=== PATIENT | female | born 1955 | race Caucasian/White ===

== ENCOUNTER 2018-08-15 15:32 | Inpatient (IN) | payer OTHER ==
--- NOTE | 2018-08-15 16:24 | PDOC ---
History of Present Illness - General Chief Complaint: Pain, Acute Stated Complaint: VOMITING Time Seen by Provider: 08/15/18 16:24 - History of Present Illness Initial Comments: 63 year old female with PMH of early onset Alzheimer's presenting with family for three episodes of bilious, non-bloody vomiting and abdominal pain over the past 10 hours. Patient ate eggs and yucca this AM without issue then 30 minutes after noticed these symptoms. Has not had a bowel movement since yesterday. Denies any chest pain, SOB, urinary symptoms, fevers, chills, diarrhea, constipation or other symptoms. 08/15/18 16:38 Past History - Past Medical History Allergies/Adverse Reactions: Allergies Allergy/AdvReac Type Severity Reaction Status Date / Time No Known Allergies Allergy Verified 08/15/18 15:48 Home Medications: Ambulatory Orders Donepezil HCl [Aricept] 5 mg PO DAILY 08/16/18 Escitalopram Oxalate [Lexapro -] 10 mg PO BID 08/16/18 Memantine HCl 2 mg PO BID 08/16/18 Mirtazapine 30 mg PO DAILY 08/16/18 Risperidone 0.25 mg PO BID 08/16/18 COPD: No CHF: No Dementia: Yes (Alzhiemers dx) - Suicide/Smoking/Psychosocial Hx Smoking History: Never smoked Have you smoked in the past 12 months: No Information on smoking cessation initiated: No Hx Alcohol Use: No Drug/Substance Use Hx: No Review of Systems - Review of Systems Constitutional: No: Chills, Diaphoresis, Fever HEENTM: No: Eye Pain, Blurred Vision, Tearing Respiratory: No: Cough, Orthopnea, Shortness of Breath Cardiac (ROS): No: Chest Pain, Edema, Irregular Heart Rate ABD/GI: Yes: Nausea, Vomiting. No: Blood Streaked Bowels, Constipated, Diarrhea , Poor Appetite, Indigestion : No: Burning, Dysuria, Discharge Musculoskeletal: Yes: Back Pain, Joint Pain Integumentary: No: Bruising, Change in Color, Erythema Neurological: Yes: Other (alzheimer's). No: Headache, Numbness, Paresthesia, Tingling, Tremors Endocrine: No: Flushing, Intolerance to Heat, Increased Hunger, Increased Urine , Change in Weight Hematologic/Lymphatic: No: Anemia, Blood Clots, Easy Bleeding *Physical Exam - Vital Signs Last Vital Signs Temp Pulse Resp BP Pulse Ox 98.0 F 53 L 16 125/92 100 08/15/18 15:46 08/15/18 15:46 08/15/18 15:46 08/15/18 15:46 08/15/18 15:46 - Physical Exam General Appearance: Yes: Nourished, Appropriately Dressed. No: Apparent Distress HEENT: positive: EOMI, YOLANDA, Normal ENT Inspection, Normal Voice Neck: positive: Trachea midline, Normal Thyroid, Supple. negative: Tender, Rigid Respiratory/Chest: positive: Lungs Clear, Normal Breath Sounds. negative: Chest Tender, Respiratory Distress, Accessory Muscle Use Cardiovascular: positive: Regular Rhythm, Regular Rate Gastrointestinal/Abdominal: positive: Normal Bowel Sounds, Flat, Soft. negative : Tender Rectal Exam: positive: normal rectal tone. negative: normal exam (severeley distended rectal vault with large proximal stool burden) Lymphatic: negative: Adenopathy, Tenderness Musculoskeletal: positive: Normal Inspection. negative: Decreased Range of Motion Extremity: positive: Normal Capillary Refill, Normal Inspection, Normal Range of Motion, Tender Integumentary: positive: Normal Color, Dry, Warm Neurologic: positive: Alert, Normal Mood/Affect, Motor Strength 5/5. negative: Fully Oriented, Normal Response (seems overall confused, oriented to person only ) Moderate Sedation - Procedure Monitoring Vital Signs: Procedure Monitoring Vital Signs Temperature 98.0 F 08/15/18 15:46 Pulse Rate 53 L 08/15/18 15:46 Respiratory Rate 16 08/15/18 15:46 Blood Pressure 125/92 08/15/18 15:46 O2 Sat by Pulse Oximetry (%) 100 08/15/18 15:46 ED Treatment Course - LABORATORY CBC & Chemistry Diagram: 08/17/18 06:00 08/17/18 06:00 Medical Decision Making - Medical Decision Making 63 year old female, severely demented presenting with nausea, vomiting, and suspicion of constipation. Originally we were concerned for obstruction given comorbidities and clinical symptoms, however, CT only demonstrated a large stool burden and diverticulosis without evidence of infection. Concerningly though, leukocytosis to 19 was noted. We were unsuccessful in disimpacting the patient because tof hte proximal location of the stool burden. Although VSS, patient well appearing, and the likely fact that this is all due to fecal impaction; patient is severely demented and she likely has abdominal pain given her admission of such in occasional lucid periods. If this patient were able to communicate,I would admit her for serial abdominal exams. Given this context, she was discussed with Dr. Hart for admission and the medicine service will observe him. 08/16/18 00:01 *DC/Admit/Observation/Transfer Diagnosis at time of Disposition: Leukocytosis Qualifiers: Leukocytosis type: lymphocytosis Qualified Code(s): D72.820 - Lymphocytosis ( symptomatic) Abdominal pain Qualifiers: Abdominal location: unspecified location Qualified Code(s): R10.9 - Unspecified abdominal pain - Discharge Dispostion Disposition: HOME Condition at time of disposition: Stable Decision to Admit order: Yes - Referrals - Patient Instructions - Post Discharge Activity
--- NOTE | 2018-08-15 16:31 | PDOC ---
Attending Attestation - Resident Resident Name: Sheyla Holman - ED Attending Attestation I have performed the following: I have examined & evaluated the patient, The case was reviewed & discussed with the resident, I agree w/resident's findings & plan, Exceptions are as noted - HPI HPI: 08/15/18 16:30 63 yo female p/w complaint of nausea and vomiting x 3 - Physicial Exam PE: 08/15/18 16:35 slender 63 yo female in no acute distress but appears uncomfortable head ncat eyes eomi neck no jvd.supple lungs cta b/l cvs [id number] abd no rebound,no guarding ext no edema,no deformities skin warm and dry no cva tenderness neuro alert,very poor historian(dementia at baseline),moving all extremities psych sl anxious 08/15/18 16:50 - Medical Decision Making 08/15/18 63 yo female w vomiting x 3, no prior abdominal surgeries diff diag includes appendicitis, cholecystitis,gastroenteritis, UTI plan cbc,comp,UA,imaging,IVf,antiemetics 08/15/18 18:25 pt is unable to tell us her history because of her advance dementia, labs reveal a leukocytosis and we will obtain ct scan 08/15/18 23:49 ct scan of abd/pel shows fecal impaction, no sbo,no masses,no diverticulitis, no appendicitis pt was disimpacted and received an fleets enema Ua, UC sent and there was hematuria most likely due to catheterization ,no bacteria,no UTI 08/16/18 01:20 IMP dementia,fecal impaction w vomiting
[2018-08-15] MEDS ORDERED: SODIUM CHLORIDE 0.9% 500 ML INFUS.BAG IV ONE (16:37)
[2018-08-15 18:10] LABS: BASO % 0.3 % (0-2.0); HEMATOCRIT 39.6 % (32.4-45.2); HEMOGLOBIN 13.6 GM/dL (10.7-15.3); LYMPH % 5.3 % (8-40); MCH 28.7 pg (25.7-33.7); MCHC 34.4 g/dl (32.0-36.0); MEAN CELL VOLUME 83.5 fl (80-96); MEAN PLT VOLUME 8.8 fl (7.5-11.1); NEUT % 90.4 % (42.8-82.8); PLATELET COUNT 315 K/MM3 (134-434); RBC 4.74 M/mm3 (3.60-5.2); RDW 13.4 % (11.6-15.6); WHITE BLOOD COUNT 19.2 K/mm3 (4.0-10.0)
[2018-08-15 18:38] LABS: ALBUMIN 3.8 g/dl (3.4-5.0); ALK PHOS 75 U/L (45-117); AMYLASE 66 U/L (25-115); ANION GAP 11 MMOL/L (8-16); BILIRUBIN,TOTAL 0.5 mg/dL (0.2-1); BLOOD UREA NITROGEN 15 mg/dL (7-18); CALCIUM 9.4 mg/dL (8.5-10.1); CHLORIDE 106 mmol/L (98-107); CO2 22 mmol/L (21-32); CREATININE 0.9 mg/dL (0.55-1.3); GLUCOSE,RANDOM 147 mg/dL (74-106); LIPASE 101 U/L (73-393); MAGNESIUM 2.1 mg/dL (1.8-2.4); N-TERMINAL BNP 102.8 pg/ml (5-125); PHOSPHOROUS 3.1 mg/dL (2.5-4.9); POTASSIUM 4.3 mmol/L (3.5-5.1); SGOT/AST 21 U/L (15-37); SGPT/ALT 20 U/L (13-61); SODIUM 140 mmol/L (136-145); TOT PROT 7.9 g/dl (6.4-8.2)
[2018-08-15] MEDS ORDERED: HALOPERIDOL LACTATE 5 MG/ML IM ONE (21:06)
[2018-08-15] MEDS ORDERED: HALOPERIDOL LACTATE 5 MG/ML ONE (21:08)
[2018-08-15] MEDS ORDERED: SODIUM PHOSPHATE/NA BIPHOS 133 ML ENEMA PR ONE (22:58)
--- NOTE | 2018-08-15 23:48 | PN ---
Teaching Attending Note Name of Resident: Antolin Hart ATTENDING PHYSICIAN STATEMENT I saw and evaluated the patient. I reviewed the resident's note and discussed the case with the resident. I agree with the resident's findings and plan as documented. SUBJECTIVE: Patient 63 year old woman with PMH of early onset Alzheimer's presenting with family for three episodes of bilious, non-bloody vomiting and abdominal pain over the past 10 hours. Patient ate eggs and yucca this AM without issue then 30 minutes after noticed these symptoms. Has not had a bowel movement since yesterday. Denies any chest pain, SOB, urinary symptoms, fevers, chills or diarrhea. OBJECTIVE: Alert Vital Signs Period Temp Pulse Resp BP Sys/Ramos Pulse Ox Last 24 Hr 98.0 F 53 16 125/92 100 HEENT: No Jaundice, eye redness or discharge, PERRLA, EOMI. Normocephalic, atraumatic. External ears are normal. No nasal discharge. Neck: Supple, nontender. No palpable adenopathy or thyromegaly. No JVD Chest: Good effort. Clear to auscultation and percussion. Heart: Regular. No S3, rub or murmur Abdomen: Not distended, soft, nontender and no HSM. No rebound or guarding. Normoactive bowel sounds. Ext: Peripheral pulses intact. No leg edema. Skin: Warm and dry. No petechiae, rash or ecchymosis. Neuro: Alert. Dementia. Disoriented. CN 2-12 grossly intact. Sensation grossly intact in all four extremities and DTR are symmetric. Abnormal Lab Results 08/15/18 08/15/18 17:35 17:35 WBC 19.2 H Absolute Neuts (auto) 17.3 H Neutrophils % 90.4 H Lymphocytes % 5.3 L Random Glucose 147 H ASSESSMENT AND PLAN: 1. Fecal impaction - May explain nausea and vomiting. No evidence of colitis or diverticulitis on CT. Source of leukocytosis is unclear - Urinalysis is pending and no acute pathology on CXR. No significant abdominal tenderness. Got enema and manual disimpaction in the ER. Will repeat CBC, get blood cultures and await result of UA before deciding on use of antibiotics. No evidence of infection on the UA and repeat WBC was still high at 13.9. Will start patient on Unasyn 1.5 gm q 6 hours for possible aspiration pneumonia. Consult ID. Get HbA1c. 2. DVT prophylaxis - Lovenox 40 mg SQ q 24 hours. 3. Advance directives - Full code
[2018-08-16 00:32] LABS: URINE APPEARANCE CLEAR; URINE BILIRUBIN NEGATIVE (<2.0 mg/dL); URINE COLOR STRAW; URINE GLUCOSE (UA) NEGATIVE (NEGATIVE); URINE KETONE NEGATIVE (NEGATIVE); URINE LEUK ESTERASE NEGATIVE (NEGATIVE); URINE NITRITE NEGATIVE (NEGATIVE); URINE PROTEIN NEGATIVE (NEGATIVE); URINE UROBILINOGEN NEGATIVE mg/dL (0.2-1.0)
--- NOTE | 2018-08-16 00:38 | HP ---
CHIEF COMPLAINT: vomiting, abd pain PCP: unknown, in [place] HISTORY OF PRESENT ILLNESS: Patient is a 63 y/o F w/ PMHx early onset AD p/w 3-5 episodes "bright yellow" vomiting and abdominal pain since ~10am. Patient cannot provide any history, all history from family. Had breakfast consisting of eggs and yucca, symptoms began ~30 minutes later. Family reports patient has been below baseline mentation for past 1-2 weeks. Per pt's sister, Pt had been on a non-specified prescription drug but stopped several months ago, has been given herbal home remedies since. Last bowel movement was 2 days ago, normal. Denies CP, SOB, dysuria, f/c, diarrhea. WBC 19.2 in ED, labs otherwise unremarkable. CT a/p w/ contrast showed mild fecal impaction. Pt received haldol, bolus NS, fleet enema , and partially successful manual disimpaction in ED. ER course was notable for: (1) WBC 19.2 (2) CT a/p: mild fecal impaction (3) Recent Travel: PAST MEDICAL HISTORY: As per HPI PAST SURGICAL HISTORY: As per HPI Social History: Smoking: Alcohol: Drugs: Family History: Allergies No Known Allergies Allergy (Verified 08/15/18 15:48) HOME MEDICATIONS: None REVIEW OF SYSTEMS As per HPI PHYSICAL EXAMINATION Vital Signs - 24 hr 08/15/18 15:46 Temperature 98.0 F Pulse Rate 53 L Respiratory 16 Rate Blood Pressure 125/92 O2 Sat by Pulse 100 Oximetry (%) GENERAL: Awake, alert, oriented x 0 HEAD: NC/AT EYES: PERRLA, cannot comply w/ EOM exam EARS, NOSE, THROAT: MMM NECK: no LAD, no JVD LUNGS: CTA b/l HEART: RRR no m/r/g ABDOMEN: +bs, soft, NT, ND EXTREMITIES: 2+ pulses, warm, well-perfused. No calf tenderness. No peripheral edema. NEUROLOGICAL: highly limited compliance, no focal deficits appreciated PSYCHIATRIC: disoriented, responses are nonsensical, pleasant mood SKIN: Warm, dry, normal turgor, no rashes or lesions noted, normal capillary refill Laboratory Results - last 24 hr 08/15/18 08/15/18 17:35 17:35 WBC 19.2 H RBC 4.74 Hgb 13.6 Hct 39.6 MCV 83.5 MCH 28.7 MCHC 34.4 RDW 13.4 Plt Count 315 MPV 8.8 Absolute Neuts (auto) 17.3 H Neutrophils % 90.4 H Lymphocytes % 5.3 L Monocytes % 4.0 Eosinophils % 0.0 Basophils % 0.3 Nucleated RBC % 0 Sodium 140 Potassium 4.3 Chloride 106 Carbon Dioxide 22 Anion Gap 11 BUN 15 Creatinine 0.9 Creat Clearance w eGFR > 60 Random Glucose 147 H Calcium 9.4 Phosphorus 3.1 Magnesium 2.1 Total Bilirubin 0.5 AST 21 ALT 20 Alkaline Phosphatase 75 Troponin I < 0.02 B-Natriuretic Peptide 102.8 Total Protein 7.9 Albumin 3.8 Total Amylase 66 Lipase 101 ASSESSMENT/PLAN: 63 y/o F w/ PMHx early onset AD p/w 3-5 episodes of vomiting and abd pain since 10 am #vomiting/abd pain -currently resting comfortably, not nauseous -WBC 19.2 -CT a/p w/ contrast significant only for mild fecal impaction -"bright yellow" vomit may indicate w/u for bilious vomiting -UA, UCx, BCx, stool Cx, stool WBC ordered -no clear source of infection -no clear source of significant obstruction -decision on ABx pending UA at this time -repeat CBC -NPO -NS @ 50 #AD -apparently not on treatment -family reports mentation is below baseline -monitor mental state closely -will require outpatient neuropsych f/u #FEN -NS @ 50 -monitor and replete lytes -NPO at this time #PPx -DVT: heparin -GI: not indicated #code -full #dispo -admit to med/surg Visit type - Emergency Visit Emergency Visit: Yes ED Registration Date: 08/15/18 Care time: The patient presented to the Emergency Department on the above date and was hospitalized for further evaluation of their emergent condition. - New Patient This patient is new to me today: Yes Date on this admission: 08/16/18 - Critical Care Critical Care patient: No
[2018-08-16 00:52] LABS: URINE BACTERIA RARE /hpf (NONE SEEN)
[2018-08-16] MEDS ORDERED: GLYCERIN 1 RECTAL SUPPOSITORY, ADULT PR ONE (00:53)
[2018-08-16 03:02] LABS: HEMOGLOBIN 12.9 GM/dL (10.7-15.3); MCH 28.2 pg (25.7-33.7); MEAN CELL VOLUME 82.9 fl (80-96); MEAN PLT VOLUME 8.4 fl (7.5-11.1); PLATELET COUNT 295 K/MM3 (134-434); RBC 4.59 M/mm3 (3.60-5.2); RDW 13.2 % (11.6-15.6); WHITE BLOOD COUNT 13.9 K/mm3 (4.0-10.0)
[2018-08-16] MEDS: SODIUM CHLORIDE 1,000 ML IV SCH ×2 (03:18→23:54)
[2018-08-16] MEDS: AMPICILLIN NA/SULBACTAM NA 1.5 GM in SODIUM CHLORIDE 100 ML IVPB SCH ×4 (04:52→21:29)
[2018-08-16 05:39] LABS: BASO % 0.7 % (0-2.0); EOS % 0.3 % (0-4.5); HEMATOCRIT 37.7 % (32.4-45.2); HEMOGLOBIN 12.1 GM/dL (10.7-15.3); LYMPH % 26.7 % (8-40); MCH 26.9 pg (25.7-33.7); MEAN CELL VOLUME 84.3 fl (80-96); MEAN PLT VOLUME 8.1 fl (7.5-11.1); MONO % 10.3 % (3.8-10.2); PLATELET COUNT 272 K/MM3 (134-434); RBC 4.48 M/mm3 (3.60-5.2); RDW 13.3 % (11.6-15.6); WHITE BLOOD COUNT 12.4 K/mm3 (4.0-10.0)
[2018-08-16] MEDS ORDERED: HEPARIN NA (PORCINE) 5,000 UNITS/ML 1ML VIAL ONE ×2 (05:53→15:01)
[2018-08-16] MEDS: HEPARIN NA (PORCINE) 5,000 UNITS/ML 1ML VIAL SQ SCH ×3 (06:03→23:55)
[2018-08-16 06:05] LABS: ANION GAP 7 MMOL/L (8-16); BLOOD UREA NITROGEN 14 mg/dL (7-18); CALCIUM 8.7 mg/dL (8.5-10.1); CHLORIDE 108 mmol/L (98-107); CO2 26 mmol/L (21-32); CREATININE 0.8 mg/dL (0.55-1.3); GLUCOSE,RANDOM 98 mg/dL (74-106); MAGNESIUM 2.2 mg/dL (1.8-2.4); POTASSIUM 3.8 mmol/L (3.5-5.1); SODIUM 142 mmol/L (136-145)
--- NOTE | 2018-08-16 08:10 | PN ---
Teaching Attending Note Name of Resident: Ted Nelson ATTENDING PHYSICIAN STATEMENT I saw and evaluated the patient. I reviewed the resident's note and discussed the case with the resident. I agree with the resident's findings and plan as documented. SUBJECTIVE: Patient is comfortable with NAD, confused at her baseline. Family at bedside. OBJECTIVE: Vital Signs Temperature 99.4 F 08/16/18 03:01 Pulse Rate 84 08/16/18 07:00 Respiratory Rate 17 08/16/18 07:00 Blood Pressure 118/52 L 08/16/18 07:00 O2 Sat by Pulse Oximetry (%) 97 08/16/18 07:00 GENERAL: Awake, alert, oriented x 0 HEAD: NC/AT EYES: PERRLA, EOMI EARS, NOSE, THROAT: MMM , NECK: no LAD, no JVD LUNGS: CTA b/l, no wheeze , no rales, no rhonchi HEART: RRR no murmur ABDOMEN: +bs, soft, NT, ND EXTREMITIES: 2+ pulses, warm, well-perfused. No calf tenderness. No edema. NEUROLOGICAL: cn 2-12 grossly intact. no focal deficits appreciated PSYCHIATRIC: disoriented x 3 x 3-4 yrs SKIN: Warm, dry, normal turgor, no rashes or lesions noted, normal capillary refill CBCD WBC 12.4 K/mm3 (4.0-10.0) H 08/16/18 05:20 RBC 4.48 M/mm3 (3.60-5.2) 08/16/18 05:20 Hgb 12.1 GM/dL (10.7-15.3) 08/16/18 05:20 Hct 37.7 % (32.4-45.2) 08/16/18 05:20 MCV 84.3 fl (80-96) 08/16/18 05:20 MCHC 32.0 g/dl (32.0-36.0) 08/16/18 05:20 RDW 13.3 % (11.6-15.6) 08/16/18 05:20 Plt Count 272 K/MM3 (134-434) 08/16/18 05:20 MPV 8.1 fl (7.5-11.1) 08/16/18 05:20 CMP Sodium 142 mmol/L (136-145) 08/16/18 05:20 Potassium 3.8 mmol/L (3.5-5.1) 08/16/18 05:20 Chloride 108 mmol/L (98-107) H 08/16/18 05:20 Carbon Dioxide 26 mmol/L (21-32) 08/16/18 05:20 Anion Gap 7 MMOL/L (8-16) L 08/16/18 05:20 BUN 14 mg/dL (7-18) 08/16/18 05:20 Creatinine 0.8 mg/dL (0.55-1.3) 08/16/18 05:20 Creat Clearance w eGFR > 60 (>60) 08/16/18 05:20 Random Glucose 98 mg/dL (74-106) 08/16/18 05:20 Calcium 8.7 mg/dL (8.5-10.1) 08/16/18 05:20 Total Bilirubin 0.5 mg/dL (0.2-1) 08/15/18 17:35 AST 21 U/L (15-37) 08/15/18 17:35 ALT 20 U/L (13-61) 08/15/18 17:35 Alkaline Phosphatase 75 U/L (45-117) 08/15/18 17:35 Total Protein 7.9 g/dl (6.4-8.2) 08/15/18 17:35 Albumin 3.8 g/dl (3.4-5.0) 08/15/18 17:35 CARDIAC ENZYMES Troponin I < 0.02 ng/ml (0.00-0.05) 08/16/18 05:20 Current Medications Generic Name Dose Route Start Last Admin Trade Name Dion PRN Reason Stop Dose Admin Heparin Sodium (Porcine) 5,000 unit 08/16/18 06:00 08/16/18 06:03 Heparin - SQ 5,000 unit TID MELISA Administration Sodium Chloride 1,000 mls @ 50 mls/hr 08/16/18 00:30 08/16/18 03:18 Normal Saline - IV 08/17/18 00:20 50 mls/hr ASDIR MELISA Administration Ampicillin Sodium/Sulbactam 100 mls @ 200 mls/hr 08/16/18 04:30 08/16/18 04: 52 Sodium 1.5 gm/ Sodium Chloride IVPB 200 mls/hr Q6H-IV MELISA Administration Home Medications Medication Instructions Recorded NK [No Known Home Medication] 08/16/18 Urine Test Results Urine Color Straw 08/16/18 00:05 Urine Appearance Clear 08/16/18 00:05 Urine pH 8.0 (5.0-8.0) 08/16/18 00:05 Ur Specific [place] 1.059 (1.010-1.035) H 08/16/18 00:05 Urine Protein Negative (NEGATIVE) 08/16/18 00:05 Urine Glucose (UA) Negative (NEGATIVE) 08/16/18 00:05 Urine Ketones Negative (NEGATIVE) 08/16/18 00:05 Urine Blood 2+ (NEGATIVE) H 08/16/18 00:05 Urine Nitrite Negative (NEGATIVE) 08/16/18 00:05 Urine Bilirubin Negative (<2.0 mg/dL) 08/16/18 00:05 Ur Leukocyte Esterase Negative (NEGATIVE) 08/16/18 00:05 Urine Bacteria Rare /hpf (NONE SEEN) 08/16/18 00:05 Laboratory Tests 08/15/18 08/16/18 08/16/18 17:35 02:45 05:20 WBC 19.2 H 13[address] of abdomen: No evidence of colitis or diverticulitis US of abdomen: no cholelithiasis. CXR: negative pathology ASSESSMENT AND PLAN: Patient is a 63 y/o F w/ PMHx early onset AD p/w 3-5 episodes "bright yellow" vomiting and abdominal pain since ~10am. Patient cannot provide any history, all history from family. Had breakfast consisting of eggs and yucca, symptoms began ~30 minutes later. # Acute Fecal impaction : presented with nausea and vomiting. Urinalysis is negative. No significant abdominal tenderness. continue enema, s/p manual dis- impaction in the ER. Will follow cultures. # Acute Leukocytosis: possible due to aspiration Pna since patient presented had an episode of Nausea and vomiting prior to coming to the hospital. No evidence of infection on the UA , wbc is trending down. # questionable aspiration Pneumonia culture is pending , no fever, on IV Unasyn 1.5 gm q 6 hours for possible aspiration pneumonia. Id on the case, appreciated . DVT prophylaxis - Lovenox 40 mg SQ
--- NOTE | 2018-08-16 08:48 | CON.ID ---
Consult Consult Specialty:: infectious disease Referred by:: hospitalist Reason for Consultation:: leukocytosis - History of Present Illness Chief Complaint: vomiting History of Present Illness: 63 yo female with dementia admitted from home with vomiting times 3 yesterda, also one episode in ED +abdominal pain no hemetemesis or coffee grounds ct scan (prelim) mile fecal impaction, no diverticulitis cxray is negative fecal impaction and suppository given in ED with no results still some abdominal discomfort no more vomiting no travel no sick contacts no recent antibioitic use ate eggs and yucca yesterday am no cough - History Source History Provided By: Family Member, Medical Record Limitations to Obtaining History: Dementia - 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 - Past Surgical History Past Surgical History: Yes: None - Alcohol/Substance Use Hx Alcohol Use: No - Smoking History Smoking history: Never smoked Have you smoked in the past 12 months: No - Social History Usual Living Arrangement: Other ADL: Family Assistance Place of : Other ([facility]) History of Recent Travel: No Home Medications - Allergies Allergies/Adverse Reactions: Allergies Allergy/AdvReac Type Severity Reaction Status Date / Time No Known Allergies Allergy Verified 08/15/18 15:48 - Home Medications Home Medications: Ambulatory Orders NK [No Known Home Medication] 08/16/18 Family Disease History - Family Disease History Family History: Unable to Obtain Review of Systems Unable to obtain ROS, reason: unable to obtain - Review of Systems Constitutional: denies: Chills, Diaphoresis, Fever Eyes: reports: No Symptoms HENT: reports: No Symptoms Neck: reports: No Symptoms Cardiovascular: reports: No Symptoms. denies: Chest Pain Respiratory: denies: Cough Gastrointestinal: reports: Abdominal Pain, Constipation, Vomiting Genitourinary: reports: No Symptoms Physical Exam Vital Signs: Vital Signs Temperature 99.4 F 08/16/18 03:01 Pulse Rate 84 08/16/18 07:00 Respiratory Rate 17 08/16/18 07:00 Blood Pressure 118/52 L 08/16/18 07:00 O2 Sat by Pulse Oximetry (%) 97 08/16/18 07:00 Constitutional: Yes: Well Nourished, No Distress, Calm Eyes: Yes: Conjunctiva Clear, EOM Intact HENT: Yes: Atraumatic, Normocephalic Neck: Yes: Supple, Trachea Midline Cardiovascular: Yes: Regular Rate and Rhythm Respiratory: Yes: Regular, CTA Bilaterally Gastrointestinal: Yes: Normal Bowel Sounds, Soft, Tenderness (no rebound or guarding, some discomfort to deep palpation bilateral lower quadrants) ...Rectal Exam: Yes: Deferred Renal/: No: CVA Tenderness - Left, CVA Tenderness - Right Musculoskeletal: Yes: WNL Extremities: Yes: WNL Edema: No Integumentary: No: Rash Neurological: Yes: Alert Labs: CBC, BMP 08/16/18 05:20 08/16/18 05:20 Laboratory Tests 08/15/18 17:35 Total Amylase 66 Lipase 101 Imaging - Results Chest X-ray: Report Reviewed, Image Reviewed Cat Scan: Report Reviewed (official report pending) Problem List - Problems (1) Leukocytosis Code(s): D72.829 - ELEVATED WHITE BLOOD CELL COUNT, UNSPECIFIED (2) Abdominal pain Code(s): R10.9 - UNSPECIFIED ABDOMINAL PAIN (3) Vomiting Code(s): R11.10 - VOMITING, UNSPECIFIED (4) Fecal impaction Code(s): K56.41 - FECAL IMPACTION Assessment/Plan leukocytosis without any clear source no signs pneumonia or UTI continue unasyn pending cultures -plan d/c antiibotics in am if cultures are negative leukocytosis resolving still no BM-needs treatment of fecal impaction
[2018-08-16] MEDS ORDERED: MINERAL OIL ENEMA 133 ML ENEMA PR ONE (10:30)
--- NOTE | 2018-08-16 14:23 | PN ---
Physical Exam: SUBJECTIVE: Patient seen and examined. Pt. history obtained from Pt.'s sister. Pt.'s sister does not take Donepezil or Memantine, but does endorse taking Risperidone at home. OBJECTIVE: Vital Signs Period Temp Pulse Resp BP Sys/Ramos Pulse Ox Last 24 Hr 98.0 F-99.4 F 53-88 16-20 118-138/52-92 97-100 GENERAL: The patient is awake, alert, but not oriented, in no acute distress. HEAD: Normal with no signs of trauma. EYES: PERRL, extraocular movements intact, sclera anicteric, conjunctiva clear. No ptosis. ENT: Ears normal, nares patent, oropharynx clear without exudates, moist mucous membranes. LUNGS: Breath sounds equal, clear to auscultation bilaterally, no wheezes, no crackles, no accessory muscle use. HEART: Regular rate and rhythm, S1, S2 without murmur ABDOMEN: Scoliosis of the spine noted, Soft, nontender, nondistended, normoactive bowel sounds, no guarding, no rebound, no hepatosplenomegaly, no masses, no CVA tenderness. EXTREMITIES: 2+ dorsal pedal pulses, warm, well-perfused, no edema. NEUROLOGICAL: Normal speech, gait not observed. SKIN: Warm, dry, normal turgor, no rashes or lesions noted Laboratory Results - last 24 hr 08/15/18 08/15/18 08/16/18 17:35 17:35 00:05 WBC 19.2 H RBC 4.74 Hgb 13.6 Hct 39.6 MCV 83.5 MCH 28.7 MCHC 34.4 RDW 13.4 Plt Count 315 MPV 8.8 Absolute Neuts (auto) 17.3 H Neutrophils % 90.4 H Lymphocytes % 5.3 L Monocytes % 4.0 Eosinophils % 0.0 Basophils % 0.3 Nucleated RBC % 0 Sodium 140 Potassium 4.3 Chloride 106 Carbon Dioxide 22 Anion Gap 11 BUN 15 Creatinine 0.9 Creat Clearance w eGFR > 60 Random Glucose 147 H Lactic Acid Calcium 9.4 Phosphorus 3.1 Magnesium 2.1 Total Bilirubin 0.5 AST 21 ALT 20 Alkaline Phosphatase 75 Troponin I < 0.02 B-Natriuretic Peptide 102.8 Total Protein 7.9 Albumin 3.8 Total Amylase 66 Lipase 101 Urine Color Straw Urine Appearance Clear Urine pH 8.0 Ur Specific [place] 1.059 H Urine Protein Negative Urine Glucose (UA) Negative Urine Ketones Negative Urine Blood 2+ H Urine Nitrite Negative Urine Bilirubin Negative Urine Urobilinogen Negative Ur Leukocyte Esterase Negative Urine WBC (Auto) None Urine RBC (Auto) 25 Urine Bacteria Rare 08/16/18 08/16/18 08/16/18 02:45 02:45 02:45 WBC 13.9 H RBC 4.59 Hgb 12.9 Hct 38.0 MCV 82.9 MCH 28.2 MCHC 34.0 RDW 13.2 Plt Count 295 MPV 8.4 Absolute Neuts (auto) Neutrophils % Lymphocytes % Monocytes % Eosinophils % Basophils % Nucleated RBC % Sodium Potassium Chloride Carbon Dioxide Anion Gap BUN Creatinine Creat Clearance w eGFR Random Glucose Lactic Acid 1.1 Calcium Phosphorus Magnesium Total Bilirubin AST ALT Alkaline Phosphatase Troponin I < 0.02 B-Natriuretic Peptide Total Protein Albumin Total Amylase Lipase Urine Color Urine Appearance Urine pH Ur Specific [place] Urine Protein Urine Glucose (UA) Urine Ketones Urine Blood Urine Nitrite Urine Bilirubin Urine Urobilinogen Ur Leukocyte Esterase Urine WBC (Auto) Urine RBC (Auto) Urine Bacteria 08/16/18 08/16/18 08/16/18 05:20 05:20 05:20 WBC 12.4 H RBC 4.48 Hgb 12.1 Hct 37.7 MCV 84.3 MCH 26.9 MCHC 32.0 RDW 13.3 Plt Count 272 MPV 8.1 Absolute Neuts (auto) 7.7 Neutrophils % 62.0 D Lymphocytes % 26.7 D Monocytes % 10.3 H D Eosinophils % 0.3 D Basophils % 0.7 Nucleated RBC % 0 Sodium 142 Potassium 3.8 Chloride 108 H Carbon Dioxide 26 Anion Gap 7 L BUN 14 Creatinine 0.8 Creat Clearance w eGFR > 60 Random Glucose 98 Lactic Acid Calcium 8.7 Phosphorus 4.0 Magnesium 2.2 Total Bilirubin AST ALT Alkaline Phosphatase Troponin I < 0.02 B-Natriuretic Peptide Total Protein Albumin Total Amylase Lipase Urine Color Urine Appearance Urine pH Ur Specific [place] Urine Protein Urine Glucose (UA) Urine Ketones Urine Blood Urine Nitrite Urine Bilirubin Urine Urobilinogen Ur Leukocyte Esterase Urine WBC (Auto) Urine RBC (Auto) Urine Bacteria Active Medications Home Medications Medication Instructions Recorded Donepezil HCl [Aricept] 5 mg PO DAILY 08/16/18 Escitalopram Oxalate [Lexapro -] 10 mg PO BID 08/16/18 Memantine HCl 2 mg PO BID 08/16/18 Mirtazapine 30 mg PO DAILY 08/16/18 Risperidone 0.25 mg PO BID 08/16/18 Current Medications Heparin Sodium (Porcine) (Heparin -) 5,000 unit SQ TID MELISA Last Admin: 08/16/18 15:08 Dose: 5,000 unit Sodium Chloride (Normal Saline -) 1,000 mls @ 50 mls/hr IV ASDIR MELISA Stop: 08/17/18 00:20 Last Admin: 08/16/18 03:18 Dose: 50 mls/hr Ampicillin Sodium/Sulbactam (Sodium 1.5 gm/ Sodium Chloride) 100 mls @ 200 mls/ hr IVPB Q6H-IV MELISA Last Admin: 08/16/18 15:41 Dose: 200 mls/hr Polyethylene Glycol (Miralax (For Daily Use) -) 17 gm PO DAILY [facility] ASSESSMENT/PLAN: 63 y.o. F w/ PMHx. early onset AD presents with 3-5 episodes of vomiting and abdominal pain. #Constipation -start Miralax 17gm Daily per GI consult recommendations -currently resting comfortably, not nauseous -WBC 12.4 -f/u official CT A/P read-preliminary read significant for fecal impaction -no new episodes of vomiting -f/u BCx. -no clear source of infection -no clear source of significant obstruction -c/w Unasyn until tomorrow, if cultures are negative will d/c Abx. -NPO -NS @ 50 #AD -apparently not on treatment -family reports mentation is below baseline -will require outpatient followup -Pt. prescribed Donepezil and Memantine at home but refuses to take these medications because it makes her too drowsy. Pt. does endorse taking Risperidone 0.25mg BID #F/E/N -NS @ 50 -monitor and replete electrolytes -NPO at this time #PPx -DVT: Heparin 5k SQ -GI: not indicated #Code -Full #Dispo -Admit to med/surg Visit type - Emergency Visit Emergency Visit: Yes ED Registration Date: 08/15/18 Care time: The patient presented to the Emergency Department on the above date and was hospitalized for further evaluation of their emergent condition. - New Patient This patient is new to me today: Yes Date on this admission: 08/16/18 - Critical Care Critical Care patient: No - Discharge Referral Referred to [facility] Med P.C.: No
--- NOTE | 2018-08-16 15:05 | CON.GI ---
Consult Consult Specialty:: GI Referred by:: ED Reason for Consultation:: N/V, abdominal pain - History of Present Illness Chief Complaint: N/V abdominal pain History of Present Illness: 63F with h/o dementia brought in by daughter for acute onset emesis with vomiting nonbloody emesis x3. Patient unable to provide further history. Son at bedside is not aware of further history. When examined in ED, abdomen benign. CT performed revealed fecal impaction. Patient was disimpacted in the ED and received enema as well. Currently without complaints. - History Source History Provided By: Family Member, Medical Record Limitations to Obtaining History: Dementia - Past Medical History OPERATIONS FORESTER: Yes: Dementia - Past Surgical History Past Surgical History: Yes: None - Alcohol/Substance Use Hx Alcohol Use: No - Smoking History Smoking history: Never smoked Have you smoked in the past 12 months: No - Social History Usual Living Arrangement: Other ADL: Family Assistance History of Recent Travel: No Home Medications - Allergies Allergies/Adverse Reactions: Allergies Allergy/AdvReac Type Severity Reaction Status Date / Time No Known Allergies Allergy Verified 08/15/18 15:48 - Home Medications Home Medications: Ambulatory Orders Donepezil HCl [Aricept] 5 mg PO DAILY 08/16/18 Escitalopram Oxalate [Lexapro -] 10 mg PO BID 08/16/18 Memantine HCl 2 mg PO BID 08/16/18 Mirtazapine 30 mg PO DAILY 08/16/18 Risperidone 0.25 mg PO BID 08/16/18 Review of Systems Unable to obtain ROS, reason: dementia Physical Exam-GI Vital Signs: Vital Signs Temperature 98.6 F 08/16/18 09:08 Pulse Rate 86 08/16/18 09:08 Respiratory Rate 16 08/16/18 09:08 Blood Pressure 138/67 08/16/18 09:08 O2 Sat by Pulse Oximetry (%) 98 08/16/18 09:08 Constitutional: Yes: Well Nourished, Calm Eyes: Yes: Conjunctiva Clear HENT: Yes: Atraumatic, Normocephalic Neck: Yes: Supple Cardiovascular: Yes: Regular Rate and Rhythm Respiratory: Yes: CTA Bilaterally ...Auscultate: Yes: Normoactive Bowel Sounds ...Palpate: Yes: Soft. No: Tenderness ...Rectal Exam: Yes: Other (scant soft brown stool) Integumentary: Yes: WNL Labs: CBC, BMP 08/16/18 05:20 08/16/18 05:20 Imaging - Results Cat Scan: Report Reviewed Assessment/Plan Abdominal pain/N/V may have been due to fecal impaction, now disimpacted in ED. - would recommend daily Miralax 17g to prevent future fecal impaction
--- NOTE | 2018-08-16 15:20 | EKG ---
Test Reason : Blood Pressure : / mmHG Vent. Rate : 067 BPM Atrial Rate : 067 BPM P-R Int : 124 ms QRS Dur : 086 ms QT Int : 448 ms P-R-T Axes : 085 044 032 degrees QTc Int : 473 ms NORMAL SINUS RHYTHM NORMAL ECG NO PREVIOUS ECGS AVAILABLE Confirmed by RUBENS TABOR MD ([id number]) on 08/16/2018 3:19:59 PM Referred By: Confirmed By:RUBENS TABOR MD
[2018-08-16] MEDS ORDERED: SODIUM CHLORIDE 100 ML IVPB ONE (23:36)
[2018-08-16] MEDS ORDERED: AMPICILLIN NA/SULBACTAM NA 1.5 GM VIAL ONE (23:36)
[2018-08-17] MEDS: AMPICILLIN NA/SULBACTAM NA 1.5 GM in SODIUM CHLORIDE 100 ML IVPB SCH ×2 (02:26→09:44)
[2018-08-17 02:41] VITALS: BMI 21.3
[2018-08-17] MEDS: HEPARIN NA (PORCINE) 5,000 UNITS/ML 1ML VIAL SQ SCH (06:38)
[2018-08-17 07:09] LABS: BASO % 0.5 % (0-2.0); EOS % 0.6 % (0-4.5); HEMATOCRIT 36.1 % (32.4-45.2); HEMOGLOBIN 11.5 GM/dL (10.7-15.3); LYMPH % 29.9 % (8-40); MCH 27.5 pg (25.7-33.7); MCHC 31.9 g/dl (32.0-36.0); MEAN CELL VOLUME 86.1 fl (80-96); MEAN PLT VOLUME 8.8 fl (7.5-11.1); MONO % 8.7 % (3.8-10.2); NEUT % 60.3 % (42.8-82.8); PLATELET COUNT 249 K/MM3 (134-434); RBC 4.19 M/mm3 (3.60-5.2); RDW 13.3 % (11.6-15.6); WHITE BLOOD COUNT 9.6 K/mm3 (4.0-10.0)
[2018-08-17 07:21] LABS: ANION GAP 7 MMOL/L (8-16); BLOOD UREA NITROGEN 14 mg/dL (7-18); CALCIUM 8.3 mg/dL (8.5-10.1); CHLORIDE 110 mmol/L (98-107); CO2 26 mmol/L (21-32); CREATININE 0.8 mg/dL (0.55-1.3); GLUCOSE,RANDOM 88 mg/dL (74-106); PHOSPHOROUS 3.7 mg/dL (2.5-4.9); POTASSIUM 3.7 mmol/L (3.5-5.1); SODIUM 144 mmol/L (136-145)
--- NOTE | 2018-08-17 08:34 | PN ---
Teaching Attending Note Name of Resident: Ted Nelson ATTENDING PHYSICIAN STATEMENT I saw and evaluated the patient. I reviewed the resident's note and discussed the case with the resident. I agree with the resident's findings and plan as documented. SUBJECTIVE: Patient is feeling better but has difficulty with ambulation. OBJECTIVE: Vital Signs Temperature 99.2 F 08/17/18 05:47 Pulse Rate 99 H 08/17/18 05:47 Respiratory Rate 18 08/17/18 05:47 Blood Pressure 124/73 08/17/18 05:47 O2 Sat by Pulse Oximetry (%) 99 08/16/18 22:00 GENERAL: Awake, alert, oriented x 0 HEAD: NC/AT, EYES: PERRLA, EOMI EARS, NOSE, THROAT: MMM , NECK: no LAD, no JVD LUNGS: CTA b/l, no wheeze , no rales, no rhonchi HEART: RRR ,S1S2 positive, no murmur ABDOMEN: +bs, soft, NT, ND EXTREMITIES: 2+ pulses, warm, well-perfused. No calf tenderness. No edema. NEUROLOGICAL: cn 2-12 grossly intact. no focal deficits appreciated PSYCHIATRIC: disoriented x 3 x 3-4 yrs SKIN: Warm, dry, normal turgor, no rashes or lesions noted, normal capillary refill CBCD WBC 9.6 K/mm3 (4.0-10.0) 08/17/18 06:00 RBC 4.19 M/mm3 (3.60-5.2) 08/17/18 06:00 Hgb 11.5 GM/dL (10.7-15.3) 08/17/18 06:00 Hct 36.1 % (32.4-45.2) 08/17/18 06:00 MCV 86.1 fl (80-96) 08/17/18 06:00 MCHC 31.9 g/dl (32.0-36.0) L 08/17/18 06:00 RDW 13.3 % (11.6-15.6) 08/17/18 06:00 Plt Count 249 K/MM3 (134-434) 08/17/18 06:00 MPV 8.8 fl (7.5-11.1) 08/17/18 06:00 CMP Sodium 144 mmol/L (136-145) 08/17/18 06:00 Potassium 3.7 mmol/L (3.5-5.1) 08/17/18 06:00 Chloride 110 mmol/L (98-107) H 08/17/18 06:00 Carbon Dioxide 26 mmol/L (21-32) 08/17/18 06:00 Anion Gap 7 MMOL/L (8-16) L 08/17/18 06:00 BUN 14 mg/dL (7-18) 08/17/18 06:00 Creatinine 0.8 mg/dL (0.55-1.3) 08/17/18 06:00 Creat Clearance w eGFR > 60 (>60) 08/17/18 06:00 Random Glucose 88 mg/dL (74-106) 08/17/18 06:00 Calcium 8.3 mg/dL (8.5-10.1) L 08/17/18 06:00 Total Bilirubin 0.5 mg/dL (0.2-1) 08/15/18 17:35 AST 21 U/L (15-37) 08/15/18 17:35 ALT 20 U/L (13-61) 08/15/18 17:35 Alkaline Phosphatase 75 U/L (45-117) 08/15/18 17:35 Total Protein 7.9 g/dl (6.4-8.2) 08/15/18 17:35 Albumin 3.8 g/dl (3.4-5.0) 08/15/18 17:35 CARDIAC ENZYMES Troponin I < 0.02 ng/ml (0.00-0.05) 08/16/18 05:20 Current Medications Generic Name Dose Route Start Last Admin Trade Name Dion PRN Reason Stop Dose Admin Heparin Sodium (Porcine) 5,000 unit 08/16/18 06:00 08/17/18 06:38 Heparin - SQ 5,000 unit TID MELISA Administration Ampicillin Sodium/Sulbactam 100 mls @ 200 mls/hr 08/16/18 04:30 08/17/18 02: 26 Sodium 1.5 gm/ Sodium Chloride IVPB 200 mls/hr Q6H-IV MELISA Administration Polyethylene Glycol 17 gm 08/17/18 10:00 Miralax (For Daily Use) - PO DAILY [facility] Home Medications Medication Instructions Recorded Donepezil HCl [Aricept] 5 mg PO DAILY 08/16/18 Escitalopram Oxalate [Lexapro -] 10 mg PO BID 08/16/18 Memantine HCl 2 mg PO BID 08/16/18 Mirtazapine 30 mg PO DAILY 08/16/18 Risperidone 0.25 mg PO BID 08/16/18 Microbiology 08/16/18 16:37 Stool Gram Stain - Final 08/16/18 00:05 Urine - Urine Clean Catch Urine Culture - Final NO GROWTH OBTAINED 08/16/18 02:45 Blood - Peripheral Venous Blood Culture - Preliminary NO GROWTH OBTAINED AFTER 24 HOURS, INCUBATION TO CONTINUE FOR 4 DAYS. 08/16/18 02:45 Blood - Peripheral Venous Blood Culture - Preliminary NO GROWTH OBTAINED AFTER 24 HOURS, INCUBATION TO CONTINUE FOR [address] of abdomen: No evidence of colitis or diverticulitis US of abdomen: no cholelithiasis. CXR: negative pathology ASSESSMENT AND PLAN: Patient is a 63 y/o F w/ PMHx early onset AD p/w 3-5 episodes "bright yellow" vomiting and abdominal pain since ~10am. Patient cannot provide any history, all history from family. Had breakfast consisting of eggs and yucca, symptoms began ~30 minutes later. # Acute Fecal impaction : presented with nausea and vomiting. Had BM, will continue Miralax to further avoid fecal impaction. Urinalysis is negative. No significant abdominal tenderness. continue enema, s/p manual dis-impaction in the ER. # Swelling of right LE , duplex of LE is negative, continue Px heparin in rehab. # Acute Leukocytosis: possible due to aspiration Pna since patient presented had an episode of Nausea and vomiting prior to coming to the hospital. No evidence of infection on the UA , wbc is trending down. will discontinue the Antibiotics at this time. since no fever or chills, no fever. # questionable aspiration Pneumonia culture is negative , no fever, will discontinue IV Unasyn 1.5 gm . Id on the case, appreciated . DVT prophylaxis - Lovenox 40 mg SQ
[2018-08-17] MEDS ORDERED: AMPICILLIN NA/SULBACTAM NA 1.5 GM VIAL ONE (08:49)
[2018-08-17] MEDS ORDERED: SODIUM CHLORIDE 100 ML IVPB ONE (08:49)
[2018-08-17] MEDS ORDERED: POLYETHYLENE GLYCOL 3350 119 GM BTL PO SCH (10:00)
--- NOTE | 2018-08-17 10:46 | DS ---
Physical Exam: SUBJECTIVE: Patient seen and examined. No acute events overnight. Pt. had a large BM in ED yesterday. Pt. denies any complaints this morning except that she is hungry. OBJECTIVE: Vital Signs Period Temp Pulse Resp BP Sys/Ramos Pulse Ox Last 24 Hr 98 F-99.2 F 81-99 16-18 124-151/70-82 98-99 PHYSICAL EXAM GENERAL: The patient is awake, alert, but not oriented, in no acute distress. HEAD: Normal with no signs of trauma. EYES: Sclera anicteric, conjunctiva clear. No ptosis. ENT: Ears normal, nares patent, oropharynx clear without exudates, moist mucous membranes. LUNGS: Breath sounds equal, clear to auscultation bilaterally, no wheezes, no crackles, no accessory muscle use. HEART: Regular rate and rhythm, S1, S2 without murmur ABDOMEN: Scoliosis of the spine noted, Soft, nontender, nondistended, normoactive bowel sounds, no guarding, no rebound, no hepatosplenomegaly, no masses. EXTREMITIES: 2+ dorsal pedal pulses, warm, well-perfused, no edema. NEUROLOGICAL: Normal speech, gait not observed. SKIN: Warm, dry, normal turgor, no rashes or lesions noted LABS Laboratory Results - last 24 hr 08/16/18 08/17/18 08/17/18 16:37 06:00 06:00 WBC 9.6 RBC 4.19 Hgb 11.5 Hct 36.1 MCV 86.1 MCH 27.5 MCHC 31.9 L RDW 13.3 Plt Count 249 MPV 8.8 Absolute Neuts (auto) 5.8 Neutrophils % 60.3 Lymphocytes % 29.9 Monocytes % 8.7 Eosinophils % 0.6 D Basophils % 0.5 Nucleated RBC % 0 Sodium 144 Potassium 3.7 Chloride 110 H Carbon Dioxide 26 Anion Gap 7 L BUN 14 Creatinine 0.8 Creat Clearance w eGFR > 60 Random Glucose 88 Calcium 8.3 L Phosphorus 3.7 Magnesium 2.0 Stool O & P Wet [place] Cancelled O & P Permanent Slide Cancelled Fungal Cult Result 2 Cancelled HOSPITAL COURSE: Date of Admission:08/15/18 Date of Discharge: 08/17/18 Pt. admitted for nausea and vomiting. Abdominal CT Discharge Summary Reason For Visit: LEUKOCYTOSIS,NAUSEA,AND VOMITING,ABDOMINAL PAIN Current Active Problems Abdominal pain (Acute) Fecal impaction (Acute) Leukocytosis (Acute) Vomiting (Acute) Condition: Improved - Instructions Diet, Activity, Other Instructions: You came in for nausea and vomiting because of a partial bowel obstruction. We gave you medications to assist you in passing stool in addition to manual removal of stool. Please continue your medications as prescribed Please follow up with your Primary Care Physician within 1 week. If you do not have a PCP we have provided one for you. Please return to the ED if you are experiencing concerning symptoms including but not exclusive to fever, chills, worsening constipation, notice blood in the stool or increased lethargy. Referrals: Jose Spence MD [Staff Physician] - 1 Week Disposition: HOME - Home Medications Comprehensive Discharge Medication List: Ambulatory Orders Donepezil HCl [Aricept] 5 mg PO DAILY 08/16/18 Escitalopram Oxalate [Lexapro -] 10 mg PO BID 08/16/18 Memantine HCl 2 mg PO BID 08/16/18 Mirtazapine 30 mg PO DAILY 08/16/18 Risperidone 0.25 mg PO BID 08/16/18 - Discharge Referral Referred to [facility] Med P.C.: No
[2018-08-17 11:12] VITALS: BP 132/74; PULSE 90; TEMP 98.4
== END 2018-08-17 14:17 | disposition home or self-care (01) | DRG 247 ==
LOC: JER 15:32 → JERBED 22:12 → J7W 08-16 22:25
PROVIDERS: ADMIT Internal Medicine; ATTEND Internal Medicine
DX: K56.600 Partial intestinal obstruction, unspecified as to cause (principal); R11.10 Vomiting, unspecified; K56.41 Fecal impaction; D72.829 Elevated white blood cell count, unspecified; R10.9 Unspecified abdominal pain; G30.0 Alzheimer's disease with early onset; R11.2 Nausea with vomiting, unspecified; M79.89 Other specified soft tissue disorders
CPT/HCPCS: 36415; 71045-TC-FY; 74177-TC; 76700-TC; 80048; 80053; 81003; 81015; 82150; 83605; 83690; 83735; 83880; 84100; 84484; 85025; 85027; 87040; 87045; 87046; 87086; 87177; 87205; 87209; 93005; 93010; 97116-GP; 97161-GP; 99285-25; J1644; J7030

== ENCOUNTER 2018-12-09 20:19 | Inpatient (IN) | payer OTHER ==
--- NOTE | 2018-12-09 20:33 | PDOC ---
Rapid Medical Evaluation Chief Complaint: Altered Mental Status Medical Evaluation: Allergies Allergy/AdvReac Type Severity Reaction Status Date / Time No Known Allergies Allergy Verified 08/15/18 15:48 12/09/18 20:27 I have performed a brief in-person evaluation of this patient. The patient presents with a chief complaint of: worsen dementia, talking/ babbling/ ? frequency with void- no fevers Pertinent physical exam findings: confused but cooperative mumbling/ shivering/ cooperative I have ordered the following: UA/ Cx The patient will proceed to the ED for further evaluation. 12/09/18 20:30
[2018-12-09 21:25] LABS: PH,URINE 6.5 (5.0-8.0); URINE APPEARANCE CLEAR; URINE BACTERIA 4.9 /hpf (NEGATIVE); URINE BILIRUBIN NEGATIVE (NEGATIVE); URINE CASTS 62 /hpf (0-8); URINE COLOR YELLOW; URINE GLUCOSE (UA) NEGATIVE (NEGATIVE); URINE KETONE NEGATIVE (NEGATIVE); URINE LEUK ESTERASE 1+ (NEGATIVE); URINE NITRITE NEGATIVE (NEGATIVE); URINE PROTEIN NEGATIVE (NEGATIVE); URINE RBC 2 /hpf (0-4); URINE UROBILINOGEN 0.2 mg/dL (0.2-1.0); URINE WBC 13 /hpf (0-5)
[2018-12-09 22:10] LABS: BASO % 1.1 % (0-2.0); EOS % 0.2 % (0-4.5); HEMATOCRIT 39.9 % (32.4-45.2); LYMPH % 19.6 % (8-40); MCH 27.5 pg (25.7-33.7); MCHC 32.6 g/dl (32.0-36.0); MEAN CELL VOLUME 84.3 fl (80-96); MEAN PLT VOLUME 8.4 fl (7.5-11.1); MONO % 8.3 % (3.8-10.2); NEUT % 70.8 % (42.8-82.8); PLATELET COUNT 321 K/MM3 (134-434); RBC 4.74 M/mm3 (3.60-5.2); RDW 13.2 % (11.6-15.6); WHITE BLOOD COUNT 13.1 K/mm3 (4.0-10.0)
[2018-12-09 22:11] LABS: VENOUS PH 7.44 (7.31-7.41); VENOUS PO2 49.2 mmHg (30-40)
--- NOTE | 2018-12-09 22:20 | PDOC ---
History of Present Illness - General Chief Complaint: Altered Mental Status Stated Complaint: NERVES Time Seen by Provider: 12/09/18 21:01 History Source: Patient Exam Limitations: No Limitations - History of Present Illness Initial Comments: 12/09/18 22:19 63 yo female pmh of early onset Alzheimer disease presents to ED from home with 3 days worsening AMS and new agitation today. Sister provides HPI due to pts profound dementia. States pt has gone through waxing and waning AMS bouts but the last 3 days have been very significant due to excessive nonsensical babbling that has been constant and worsening. Pt has become aggressive today with sister at home which is out of the norm. Sister also notes urinary frequency along with dark malodorous urine recently. ROS unattainable due to profound dementia Past History - Past Medical History Allergies/Adverse Reactions: Allergies Allergy/AdvReac Type Severity Reaction Status Date / Time No Known Allergies Allergy Verified 12/09/18 20:32 Home Medications: Ambulatory Orders Donepezil HCl [Aricept] 5 mg PO DAILY 08/16/18 Escitalopram Oxalate [Lexapro -] 10 mg PO BID 08/16/18 Memantine HCl 2 mg PO BID 08/16/18 Mirtazapine 30 mg PO DAILY 08/16/18 Risperidone 0.25 mg PO BID 08/16/18 Anemia: No Asthma: No Cancer: No Cardiac Disorders: No CVA: No COPD: No CHF: No Dementia: Yes (Alzhiemers dx) Diabetes: No GI Disorders: No Disorders: No HTN: No Hypercholesterolemia: No Liver Disease: No Seizures: No Thyroid Disease: No - Surgical History Abdominal Surgery: No Appendectomy: No Cardiac Surgery: No Cholecystectomy: No Lung Surgery: No Neurologic Surgery: No Orthopedic Surgery: No - Immunization History Immunization Up to Date: Yes - Suicide/Smoking/Psychosocial Hx Smoking History: Never smoked Have you smoked in the past 12 months: No Information on smoking cessation initiated: No Hx Alcohol Use: No Drug/Substance Use Hx: No Substance Use Type: None Hx Substance Use Treatment: No Review of Systems - Review of Systems Able to Perform ROS?: No (profound dementia) *Physical Exam - Vital Signs Last Vital Signs Temp Pulse Resp BP Pulse Ox 100.1 F H 125 H 22 H 116/82 100 12/09/18 22:13 12/09/18 20:29 12/09/18 20:29 12/09/18 20:29 12/09/18 20:29 - Physical Exam General Appearance: Yes: Nourished, Appropriately Dressed. No: Apparent Distress HEENT: positive: EOMI, YOLANDA, Normal Voice, TMs Normal, Pharynx Normal, Hearing Grossly Normal. negative: Scleral Icterus (R), Scleral Icterus (L) Neck: positive: Supple. negative: Carotid bruit, Tender midline Respiratory/Chest: positive: Lungs Clear, Normal Breath Sounds, Rapid RR. negative: Chest Tender, Accessory Muscle Use, Decreased Breath Sounds, Crackles , Rales, Rhonchi, Stridor, Wheezing Cardiovascular: positive: Regular Rhythm, S1, S2, Tachycardia. negative: Edema , JVD, Murmur Vascular Pulses: Dorsalis-Pedis (R): 4+, Doralis-Pedis (L): 4+ Gastrointestinal/Abdominal: positive: Normal Bowel Sounds, Flat, Soft. negative : Pulsatile Mass, Protuberent, Distended, Guarding, Rebound, Tenderness Musculoskeletal: negative: CVA Tenderness Extremity: positive: Normal Capillary Refill, Normal Inspection, Normal Range of Motion Integumentary: positive: Normal Color, Dry, Warm (hot to the touch) Neurologic: positive: accounting auditor II-XII NML intact, Alert. negative: Fully Oriented, Normal Response (not following commands such as "lift your leg" which she does at baseline), Motor Strength 5/5 (not following direct commands but is awake, alert and vocal) ED Treatment Course - LABORATORY CBC & Chemistry Diagram: 12/10/18 05:30 12/10/18 05:52 - ADDITIONAL ORDERS Additional order review: Laboratory Results 12/09/18 12/09/18 21:57 20:43 VBG pH 7.44 H POC VBG pCO2 37.0 L POC VBG pO2 49.2 H VBG HCO3 24.8 VBG O2 Sat (Deneen) 83.4 H VBG Base Excess 1.3 Urine Color Yellow Urine Appearance Clear Urine pH 6.5 Ur Specific [place] 1.017 Urine Protein Negative Urine Glucose (UA) Negative Urine Ketones Negative Urine Blood Negative Urine Nitrite Negative Urine Bilirubin Negative Urine Urobilinogen 0.2 Ur Leukocyte Esterase 1+ H Urine WBC (Auto) 13 Urine RBC (Auto) 2 Urine Casts (Auto) 62 U Pathogenic Cast Auto 4 U Epithel Cells (Auto) 8.0 U Sm Round Cell (Auto) 3 Urine Bacteria (Auto) 4.9 12/09/18 21:57 RBC 4.74 MCV 84.3 MCHC 32.6 RDW 13.2 MPV 8.4 Neutrophils % 70.8 Lymphocytes % 19.6 D Monocytes % 8.3 Eosinophils % 0.2 Basophils % 1.1 - RADIOLOGY Radiology Studies Ordered: Category Date Time Status HEAD CT WITHOUT CONTRAST [CT] Stat CT Scan 12/09/18 21:33 Ordered CHEST X-RAY PORTABLE* [RAD] Stat Radiology 12/09/18 21:30 Ordered Radiograph Interpretation: EXAM: Head CT without contrast Impression: Involutional changes. No hemorrhage. No mass. No obvious infarct. Osseous structures are intact. Reported by: Ted Angela MD. 12/10/2018 01:37 12/10/18 01:40 Medical Decision Making - Medical Decision Making 63 yo female presents to the ED with worsening MS changes and new agitation. Pt noted to be mumbling gibberish in Polish that has been constant and worsening over the past 3 days. Vitals show elevated HR, RR, and rectal temp of 100.1 Sepsis workup along with CVA/TIA initiated Fluids and tyelnol started Pt is not a Tpa candidate EKG shows sinus tach without ST changes DDX INLT: CVA, infectious/toxic/metabolic etiology, progression of known dementia Pt requires sedation to have head CT done. 1mg ativan given Head CT neg for acute changes CBC shows minor WBC elevation CMP and top wnl UA shows minor UTI with WBC Vanc and zosyn given Pt continues to babble nonsensical words in Polish. Pt admitted to med surg for likely delirium due to UTI. S/O given to IM resident Dr. Nelson *DC/Admit/Observation/Transfer Diagnosis at time of Disposition: Altered mental status, Sepsis UTI (urinary tract infection) Qualifiers: Urinary tract infection type: acute cystitis Hematuria presence: without hematuria Qualified Code(s): N30.00 - Acute cystitis without hematuria - Discharge Dispostion Condition at time of disposition: Stable Decision to Admit order: Yes - Referrals - Patient Instructions - Post Discharge Activity
[2018-12-09 22:27] LABS: INR 0.99 (0.83-1.09); PROTHROMBIN TIME (PATIENT) 11.7 SEC (9.7-13.0)
[2018-12-09 22:29] LABS: ACTIVATED PTT 29.1 SECONDS (25.2-36.5)
[2018-12-09] MEDS ORDERED: ACETAMINOPHEN 1000 MG/100 ML VIAL (NON FORMULARY) IVPB ONE (22:34)
[2018-12-09 22:42] LABS: ALK PHOS 78 U/L (45-117); ANION GAP 10 MMOL/L (8-16); BILIRUBIN,TOTAL 0.3 mg/dL (0.2-1); BLOOD UREA NITROGEN 16 mg/dL (7-18); CALCIUM 9.7 mg/dL (8.5-10.1); CHLORIDE 105 mmol/L (98-107); CO2 26 mmol/L (21-32); GLUCOSE,RANDOM 164 mg/dL (74-106); SGOT/AST 17 U/L (15-37); SGPT/ALT 17 U/L (13-61); SODIUM 141 mmol/L (136-145); TOT PROT 8.5 g/dl (6.4-8.2)
[2018-12-09] MEDS ORDERED: ACETAMINOPHEN INJECTION 100 ML IVPB ONE (22:45)
[2018-12-09] MEDS ORDERED: SODIUM CHLORIDE 0.9% 1000 ML INFUS.BAG IV ONE ×2 (22:52→23:38)
--- NOTE | 2018-12-09 22:52 | PDOC ---
Attending Attestation - HPI HPI: The patient is a 63 year old male, with a significant PMH of early onset Alzheimers, who presents to the emergency department today complaining of altered mental status for 4 days. 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 She notes the patient has been continuously talking, but does not make any sense when she speaks and her sister cannot understand what she is trying to say. Patients sister also reports associated decrease in sleep. She notes the patient says she is in pain all over her body, but does not complain when she palpates. Patients sister notes decreased urinary output during the day, but increased urinary frequency during the night. Patient presents with a 100.1 fever in the ED. The patient denies chest pain, shortness of breath, headache and dizziness. Denies fever, chills, nausea, vomit, diarrhea and constipation. Denies dysuria, frequency, urgency and hematuria. Allergies: NKA Past surgical history: None reported Social history: No reported PCP: Dr. Ziggy Sharma 12/09/18 23:11 - Physicial Exam PE: GENERAL: +Demented. +Mumbling and talking to self in north korean, without making sense. Awake, in no acute distress HEAD: No signs of trauma EYES: PERRLA, EOMI, sclera anicteric, conjunctiva clear ENT: Auricles normal inspection, hearing grossly normal, nares patent, oropharynx clear without exudates. Moist mucosa NECK: Normal ROM, supple, no lymphadenopathy, JVD, or masses LUNGS: +Poor respiratory effort. Breath sounds equal, clear to auscultation bilaterally. No wheezes, and no crackles HEART: +Tachycardic. Normal S1 and S2, no murmurs, rubs or gallops ABDOMEN: +Mild superpubic tenderness to palpation. Soft, normoactive bowel sounds. No guarding, no rebound. No masses EXTREMITIES: Normal range of motion, no edema. No clubbing or cyanosis. No cords, erythema, or tenderness NEUROLOGICAL: Cranial nerves II through XII grossly intact. Normal speech, normal gait SKIN: +Hot to touch. Dry, normal turgor, no rashes or lesions noted. 12/09/18 23:14 - Medical Decision Making Documentation prepared by PRADIP Fatima, acting as medical education manager for Melinda Richey DO. 12/09/18 23:14 <Leslie Sharp - Last Filed: 12/09/18 23:11> - Resident Resident Name: [email or web address]-[email or web address] - ED Attending Attestation I have performed the following: I have examined & evaluated the patient, The case was reviewed & discussed with the resident, I agree w/resident's findings & plan, Exceptions are as noted - Medical Decision Making 12/09/18 22:51 I, Dr. Melinda Richey, DO, attest that this document has been prepared under my direction and personally reviewed by me in its entirety. I further attest, that it accurately reflects all work, treatment, procedures and medical decision -making performed by me. 12/09/18 23:00 a/p: 63yo female with increasing agitation, altered ms -hx of dementia, lives at home with her sister who is her primary child care group leader, has not been sleeping x 3 nights, agitated, mumbling to herself, altered from her baseline dementia -febrile and tachy in the ED -concern for infection as cause of AMS -will send labs, cultures, lactate, ivf hydration, tylenol -will monitor and reassess -no rashes, no rhinorrhea -pt is tachy and hot to touch on exam 12/09/18 23:01 pt with a uti on labs elevated wbc, will start abx 12/09/18 23:04 elevated L hemidiaphragm with enlarged gastric bubble 12/10/18 00:29 resident discussed the case with RAMESH who accepts pt to service <Melinda Richey - Last Filed: 12/10/18 00:30> Heart Score/ECG Review - ECG Intrepretation Comment:: 12/09/18 23:40 sinus tach at 111, nl axis, nl interval, baseline artifact, no acute st/t wave findings <Melinda Richey - Last Filed: 12/10/18 00:30>
[2018-12-09] MEDS ORDERED: VANCOMYCIN 1,000 MG in DEXTROSE 5%-WATER - 250 ML IVPB ONE (22:54)
[2018-12-09] MEDS ORDERED: PIPERACILLIN/TAZOB 4.5 GM 4.5 GM in DEXTROSE 5%-WATER 100 ML IVPB ONE (22:54)
[2018-12-09] MEDS ORDERED: PIPERACILLIN/TAZOB 4.5 GM 4.5 GM/100 ML BAG IVPB ONE (23:17)
[2018-12-09] MEDS ORDERED: VANCOMYCIN 1 GRAM (PRE-DOCKED) 1,000 MG/250 ML BAG IVPB ONE (23:18)
[2018-12-10] MEDS ORDERED: LORazepam 2 MG/ML SDV VIAL ONE (00:21)
--- NOTE | 2018-12-10 01:26 | PN ---
Teaching Attending Note Name of Resident: Ted Nelson ATTENDING PHYSICIAN STATEMENT I saw and evaluated the patient. I reviewed the resident's note and discussed the case with the resident. I agree with the resident's findings and plan as documented. SUBJECTIVE: Patient is a 63 year old man with a significant PMH of early onset Alzheimers, who presents to the ER with altered mental status for 4 days. 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 She notes the patient has been continuously talking, but does not make any sense when she speaks and her sister cannot understand what she is trying to say. Patients sister also reports associated decrease in sleep. She notes the patient says she is in pain all over her body, but does not complaint when she palpates. Patients sister notes decreased urinary output during the day, but increased urinary frequency during the night. Had a brief bout of headache and is constipated. The patient denies chest pain, shortness of breath, and dizziness. Denies fever, chills, nausea, vomit, diarrhea and constipation. Denies dysuria or hematuria. OBJECTIVE: Alert and confused Vital Signs Period Temp Pulse Resp BP Sys/Ramos Pulse Ox Last 24 Hr 98.4 F-100.1 F 125 22 116/82 100 HEENT: No Jaundice, eye redness or discharge, PERRLA, EOMI. Normocephalic, atraumatic. External ears are normal and hearing is grossly intact. No nasal discharge. Neck: Supple, nontender. No palpable adenopathy or thyromegaly. No JVD Chest: Good effort. Clear to auscultation and percussion. Heart: Tachycardia. No S3, rub or murmur Abdomen: Not distended, soft, nontender and no HSM. No rebound or guarding. Normal bowel sounds. Ext: Peripheral pulses intact. No leg edema. Skin: Warm and dry. No petechiae, rash or ecchymosis. Neuro: Alert. Confused with intention tremors. Disoriented. CN 2-12 grossly intact. Sensation grossly intact in all four extremities and DTR are symmetric. Psych: Agitated. Home Medications Medication Instructions Recorded Donepezil HCl [Aricept] 5 mg PO DAILY 08/16/18 Escitalopram Oxalate [Lexapro -] 10 mg PO BID 08/16/18 Memantine HCl 2 mg PO BID 08/16/18 Mirtazapine 30 mg PO DAILY 08/16/18 Risperidone 0.25 mg PO BID 08/16/18 Abnormal Lab Results 12/09/18 12/09/18 12/09/18 20:43 21:57 21:57 WBC 13.1 H Absolute Neuts (auto) 9.3 H VBG pH 7.44 H POC VBG pCO2 37.0 L POC VBG pO2 49.2 H VBG O2 Sat (Deneen) 83.4 H Random Glucose Lactic Acid Total Protein Ur Leukocyte Esterase 1+ H 12/09/18 12/09/18 21:57 21:57 WBC Absolute Neuts (auto) VBG pH POC VBG pCO2 POC VBG pO2 VBG O2 Sat (Deneen) Random Glucose 164 H Lactic Acid 3.4 H* Total Protein 8.5 H Ur Leukocyte Esterase ASSESSMENT AND PLAN: 1. Sepsis due to UTI - Associated AMS likely toxic metabolic encephalopathy/ delirium due to UTI. No acute pathology on head CT. Got IV vancomycin and zosyn in the ER. Will continue treatment with IV Rocephin and give IV NS and trend lactic acid level. EKG shows sinus tachycardia with no significant ST-T changes. Monitor closely, do neurochecks and implement fall precautions. Give Miralax bid for constipation. Consult neurology - patient may have underlying Parkinsons disease. 2. DVT prophylaxis - Lovenox 40 mg SQ q 24 hours. 3. Advance directives - Full code
[2018-12-10] MEDS ORDERED: SENNOSIDES 8.6MG TABLET (FP) PO PRN (02:31)
[2018-12-10] MEDS ORDERED: SODIUM CHLORIDE 1,000 ML IV SCH (02:45)
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
[2018-12-10 06:01] LABS: BASO % 0.5 % (0-2.0); EOS % 1.3 % (0-4.5); HEMATOCRIT 35.1 % (32.4-45.2); HEMOGLOBIN 11.4 GM/dL (10.7-15.3); LYMPH % 36.3 % (8-40); MCH 27.9 pg (25.7-33.7); MCHC 32.5 g/dl (32.0-36.0); MEAN CELL VOLUME 85.7 fl (80-96); MEAN PLT VOLUME 8.1 fl (7.5-11.1); MONO % 12.1 % (3.8-10.2); NEUT % 49.8 % (42.8-82.8); PLATELET COUNT 270 K/MM3 (134-434); RBC 4.09 M/mm3 (3.60-5.2); RDW 13.3 % (11.6-15.6); WHITE BLOOD COUNT 9.3 K/mm3 (4.0-10.0)
[2018-12-10 06:28] LABS: ANION GAP 9 MMOL/L (8-16); BLOOD UREA NITROGEN 11 mg/dL (7-18); CALCIUM 7.8 mg/dL (8.5-10.1); CHLORIDE 116 mmol/L (98-107); CO2 24 mmol/L (21-32); CREATININE 0.7 mg/dL (0.55-1.3); GLUCOSE,RANDOM 65 mg/dL (74-106); MAGNESIUM 2.4 mg/dL (1.8-2.4); PHOSPHOROUS 3.5 mg/dL (2.5-4.9); POTASSIUM 3.8 mmol/L (3.5-5.1); SODIUM 148 mmol/L (136-145)
--- NOTE | 2018-12-10 10:04 | PN ---
Progress Note (short form) - Note Progress Note: ID consult dictated imp/reccd 63 yo female with rapidly progressive dementia sister who is her milk powder grinder has provided the history four years ago started having memory issues that have continued to worsen now babbles gibberish- no one can understand her recognizes her sister ambulates few steps needs to be fed +tremors at baseline no family history of dementia/parkinsons disease hospitalized last February at [facility] for aggressive behavior hospitalized here 08/15 to 08/17/18 for nausea and vomiting several days ago became more aggressive at home also agitated in ED noted to have low grade fever, wbc 13 ua +WBC got zosyn overnight sister now reports much improved, almost back to her baseline change in MS possible UTI dementia elevated lactic acid-f/u cultures, continue antibiotics rocephin for UTI f/u cultures rpr, tsh neurology consult requested and pending Problem List - Problems (1) Altered mental status Code(s): R41.82 - ALTERED MENTAL STATUS, UNSPECIFIED (2) Sepsis Code(s): A41.9 - SEPSIS, UNSPECIFIED ORGANISM (3) UTI (urinary tract infection) Code(s): N39.0 - URINARY TRACT INFECTION, SITE NOT SPECIFIED (4) Lactic acidosis Code(s): E87.2 - ACIDOSIS
[2018-12-10] MEDS ORDERED: DEXTROSE 5%-WATER - 50 ML IVPB ONE (11:46)
[2018-12-10] MEDS ORDERED: cefTRIAXone SODIUM 1 GM VIAL ONE (11:46)
[2018-12-10] MEDS: CEFTRIAXONE 1 GM in DEXTROSE 5%-WATER - 50 ML IVPB SCH (12:10)
[2018-12-10] MEDS: HEPARIN NA (PORCINE) 5,000 UNITS/ML 1ML VIAL SQ SCH ×2 (12:11→23:19)
[2018-12-10] MEDS: POLYETHYLENE GLYCOL 3350 119 GM BTL PO SCH (12:11)
--- NOTE | 2018-12-10 12:13 | EKG ---
Test Reason : Blood Pressure : / mmHG Vent. Rate : 090 BPM Atrial Rate : 090 BPM P-R Int : 132 ms QRS Dur : 082 ms QT Int : 396 ms P-R-T Axes : 050 038 023 degrees QTc Int : 484 ms NORMAL SINUS RHYTHM NONSPECIFIC T WAVE ABNORMALITY PROLONGED QT ABNORMAL ECG WHEN COMPARED WITH ECG OF 15-AUG-2018 18:17, NONSPECIFIC T WAVE ABNORMALITY, WORSE IN INFERIOR LEADS Confirmed by AGUILAR HOWE, AYAAN ([id number]) on 12/10/2018 12:13:25 PM Referred By: Confirmed By:AYAAN SHEIKH MD
[2018-12-10 12:52] VITALS: BMI 21.2
[2018-12-10] MEDS ORDERED: DEXTROSE 5%-NORMAL SALINE 1,000 ML IV SCH (17:45)
--- NOTE | 2018-12-10 19:01 | PN ---
Teaching Attending Note Name of Resident: Yola Shahid ATTENDING PHYSICIAN STATEMENT I saw and evaluated the patient. I reviewed the resident's note and discussed the case with the resident. I agree with the resident's findings and plan as documented. SUBJECTIVE: unable to obtain, sister at bedside stating patient appears improved and close to baseline OBJECTIVE: Last Vital Signs Temp Pulse Resp BP Pulse Ox 36.3 C L 103 H 18 135/77 100 12/10/18 13:27 12/10/18 13:27 12/10/18 13:27 12/10/18 13:27 12/10/18 15:00 Gen: nad Pulm: ctab w/o w/r/r CV: rrr w/o m/r/g Abd: +bs, s/nt/nd Ext: no c/c/e CBC, BMP 12/10/18 05:30 12/10/18 05:52 ASSESSMENT AND PLAN: Problem List - Problems (1) UTI (urinary tract infection) Assessment/Plan: -appreciate ID assistance -continue rocephin -follow up cultures Code(s): N39.0 - URINARY TRACT INFECTION, SITE NOT SPECIFIED Qualifiers: Urinary tract infection type: acute cystitis Hematuria presence: without hematuria Qualified Code(s): N30.00 - Acute cystitis without hematuria (2) Sepsis Assessment/Plan: -present on admission -resolving -continue IVF and rocephin Code(s): A41.9 - SEPSIS, UNSPECIFIED ORGANISM (3) Acute metabolic encephalopathy Assessment/Plan: -secondary to infection -resolving Code(s): G93.41 - METABOLIC ENCEPHALOPATHY (4) Dementia Assessment/Plan: -neurology consult Code(s): F03.90 - UNSPECIFIED DEMENTIA WITHOUT BEHAVIORAL DISTURBANCE (5) Hypernatremia Assessment/Plan: -secondary to dehydration -hydrate with IVF Code(s): E87.0 - HYPEROSMOLALITY AND HYPERNATREMIA
--- NOTE | 2018-12-10 19:03 | PN ---
Physical Exam: SUBJECTIVE: Patient seen and examined; sitting in bed starring off; sister at bedside OBJECTIVE: Vital Signs Period Temp Pulse Resp BP Sys/Ramos Pulse Ox Last 24 Hr 97.3 F-100.1 F 82-125 18-22 109-137/60-82 99-100 GENERAL: The patient is awake, alert,; no eye contact LUNGS: Breath sounds equal, clear to auscultation bilaterally, no wheezes, no crackles, no accessory muscle use. HEART: Regular rate and rhythm, S1, S2 without murmur, rub or gallop. ABDOMEN: Soft, nontender, nondistended, normoactive bowel sounds, no guarding, no rebound, no hepatosplenomegaly, no masses. EXTREMITIES: 2+ pulses, warm, well-perfused, no edema. Laboratory Results - last 24 hr 12/09/18 12/09/18 12/09/18 20:43 21:57 21:57 WBC 13.1 H RBC 4.74 Hgb 13.0 Hct 39.9 MCV 84.3 MCH 27.5 MCHC 32.6 RDW 13.2 Plt Count 321 D MPV 8.4 Absolute Neuts (auto) 9.3 H Neutrophils % 70.8 Lymphocytes % 19.6 D Monocytes % 8.3 Eosinophils % 0.2 Basophils % 1.1 Nucleated RBC % 0 PT with INR 11.70 INR 0.99 PTT (Actin FS) 29.1 VBG pH POC VBG pCO2 POC VBG pO2 VBG HCO3 VBG O2 Sat (Deneen) VBG Base Excess Sodium Potassium Chloride Carbon Dioxide Anion Gap BUN Creatinine Creat Clearance w eGFR Random Glucose Lactic Acid Calcium Phosphorus Magnesium Total Bilirubin AST ALT Alkaline Phosphatase Ammonia Troponin I Total Protein Albumin Vitamin B12 Serum Folate TSH Urine Color Yellow Urine Appearance Clear Urine pH 6.5 Ur Specific [place] 1.017 Urine Protein Negative Urine Glucose (UA) Negative Urine Ketones Negative Urine Blood Negative Urine Nitrite Negative Urine Bilirubin Negative Urine Urobilinogen 0.2 Ur Leukocyte Esterase 1+ H Urine WBC (Auto) 13 Urine RBC (Auto) 2 Urine Casts (Auto) 62 U Pathogenic Cast Auto 4 U Epithel Cells (Auto) 8.0 U Sm Round Cell (Auto) 3 Urine Bacteria (Auto) 4.9 RPR Titer 12/09/18 12/09/18 12/09/18 21:57 21:57 21:57 WBC RBC Hgb Hct MCV MCH MCHC RDW Plt Count MPV Absolute Neuts (auto) Neutrophils % Lymphocytes % Monocytes % Eosinophils % Basophils % Nucleated RBC % PT with INR INR PTT (Actin FS) VBG pH 7.44 H POC VBG pCO2 37.0 L POC VBG pO2 49.2 H VBG HCO3 24.8 VBG O2 Sat (Deneen) 83.4 H VBG Base Excess 1.3 Sodium 141 Potassium 4.0 Chloride 105 Carbon Dioxide 26 Anion Gap 10 BUN 16 Creatinine 1.0 Creat Clearance w eGFR 55.82 Random Glucose 164 H Lactic Acid 3.4 H* Calcium 9.7 Phosphorus Magnesium Total Bilirubin 0.3 AST 17 ALT 17 Alkaline Phosphatase 78 Ammonia Troponin I Total Protein 8.5 H Albumin 4.0 Vitamin B12 Serum Folate TSH Urine Color Urine Appearance Urine pH Ur Specific [place] Urine Protein Urine Glucose (UA) Urine Ketones Urine Blood Urine Nitrite Urine Bilirubin Urine Urobilinogen Ur Leukocyte Esterase Urine WBC (Auto) Urine RBC (Auto) Urine Casts (Auto) U Pathogenic Cast Auto U Epithel Cells (Auto) U Sm Round Cell (Auto) Urine Bacteria (Auto) RPR Titer 12/09/18 12/10/18 12/10/18 21:57 01:55 05:30 WBC 9.3 RBC 4.09 Hgb 11.4 Hct 35.1 MCV 85.7 MCH 27.9 MCHC 32.5 RDW 13.3 Plt Count 270 MPV 8.1 Absolute Neuts (auto) 4.6 Neutrophils % 49.8 D Lymphocytes % 36.3 D Monocytes % 12.1 H Eosinophils % 1.3 D Basophils % 0.5 Nucleated RBC % 0 PT with INR INR PTT (Actin FS) VBG pH POC VBG pCO2 POC VBG pO2 VBG HCO3 VBG O2 Sat (Deneen) VBG Base Excess Sodium Potassium Chloride Carbon Dioxide Anion Gap BUN Creatinine Creat Clearance w eGFR Random Glucose Lactic Acid 2.9 H* Calcium Phosphorus Magnesium Total Bilirubin AST ALT Alkaline Phosphatase Ammonia Troponin I < 0.02 Total Protein Albumin Vitamin B12 Serum Folate TSH Urine Color Urine Appearance Urine pH Ur Specific [place] Urine Protein Urine Glucose (UA) Urine Ketones Urine Blood Urine Nitrite Urine Bilirubin Urine Urobilinogen Ur Leukocyte Esterase Urine WBC (Auto) Urine RBC (Auto) Urine Casts (Auto) U Pathogenic Cast Auto U Epithel Cells (Auto) U Sm Round Cell (Auto) Urine Bacteria (Auto) RPR Titer 12/10/18 12/10/18 12/10/18 05:52 05:52 08:37 WBC RBC Hgb Hct MCV MCH MCHC RDW Plt Count MPV Absolute Neuts (auto) Neutrophils % Lymphocytes % Monocytes % Eosinophils % Basophils % Nucleated RBC % PT with INR INR PTT (Actin FS) VBG pH POC VBG pCO2 POC VBG pO2 VBG HCO3 VBG O2 Sat (Deneen) VBG Base Excess Sodium 148 H Potassium 3.8 Chloride 116 H Carbon Dioxide 24 Anion Gap 9 BUN 11 Creatinine 0.7 Creat Clearance w eGFR 84.25 Random Glucose 65 L Lactic Acid 2.1 H Calcium 7.8 L Phosphorus 3.5 Magnesium 2.4 Total Bilirubin AST ALT Alkaline Phosphatase Ammonia 15.10 Troponin I Total Protein Albumin Vitamin B12 Serum Folate TSH Urine Color Urine Appearance Urine pH Ur Specific [place] Urine Protein Urine Glucose (UA) Urine Ketones Urine Blood Urine Nitrite Urine Bilirubin Urine Urobilinogen Ur Leukocyte Esterase Urine WBC (Auto) Urine RBC (Auto) Urine Casts (Auto) U Pathogenic Cast Auto U Epithel Cells (Auto) U Sm Round Cell (Auto) Urine Bacteria (Auto) RPR Titer 12/10/18 12/10/18 12:30 12:30 WBC RBC Hgb Hct MCV MCH MCHC RDW Plt Count MPV Absolute Neuts (auto) Neutrophils % Lymphocytes % Monocytes % Eosinophils % Basophils % Nucleated RBC % PT with INR INR PTT (Actin FS) VBG pH POC VBG pCO2 POC VBG pO2 VBG HCO3 VBG O2 Sat (Deneen) VBG Base Excess Sodium Potassium Chloride Carbon Dioxide Anion Gap BUN Creatinine Creat Clearance w eGFR Random Glucose Lactic Acid Calcium Phosphorus Magnesium Total Bilirubin AST ALT Alkaline Phosphatase Ammonia Troponin I Total Protein Albumin Vitamin B12 263 Serum Folate 13 TSH 1.52 Urine Color Urine Appearance Urine pH Ur Specific [place] Urine Protein Urine Glucose (UA) Urine Ketones Urine Blood Urine Nitrite Urine Bilirubin Urine Urobilinogen Ur Leukocyte Esterase Urine WBC (Auto) Urine RBC (Auto) Urine Casts (Auto) U Pathogenic Cast Auto U Epithel Cells (Auto) U Sm Round Cell (Auto) Urine Bacteria (Auto) RPR Titer Nonreactive Active Medications Generic Name Dose Route Start Last Admin Trade Name Freq PRN Reason Stop Dose Admin Heparin Sodium (Porcine) 5,000 unit 12/10/18 10:00 12/10/18 12:11 Heparin - SQ 5,000 unit BID MELISA Administration Sodium Chloride 1,000 mls @ 42 mls/hr 12/10/18 02:45 12/10/18 02:48 Normal Saline - IV 12/11/18 02:34 42 mls/hr ASDIR MELISA Administration Ceftriaxone Sodium 1 gm/ 50 mls @ 200 mls/hr 12/10/18 10:30 12/10/18 12:10 Dextrose IVPB 200 mls/hr DAILY MELISA Administration Protocol Dextrose/Sodium Chloride 1,000 mls @ 83 mls/hr 12/10/18 17:45 D5-Ns - IV 12/11/18 05:48 ASDIR MELISA Polyethylene Glycol 17 gm 12/10/18 10:00 12/10/18 12:11 Miralax (For Daily Use) - PO 17 grams DAILY MELISA Administration Senna 2 tab 12/10/18 02:31 Senna - PO HS PRN CONSTIPATION ASSESSMENT/PLAN: 63 yo female pmh of early onset Alzheimer disease presents to ED from home with 3 days worsening AMS and new agitation today. Sister provides HPI due to pts profound dementia. #UTI #dementia #delerium sec to UTI? #metabolic encehalopathy -IVFl IV antibiotics -b12, folate,tsh, hiv, rpr, neuro/ID consult VTE: hep Visit type - Emergency Visit Emergency Visit: Yes ED Registration Date: 12/10/18 Care time: The patient presented to the Emergency Department on the above date and was hospitalized for further evaluation of their emergent condition. - New Patient This patient is new to me today: Yes Date on this admission: 12/10/18 - Critical Care Critical Care patient: No
--- NOTE | 2018-12-10 19:11 | CONS ---
DATE OF CONSULTATION: 12/10/2018 INFECTIOUS DISEASE CONSULTATION REQUESTING PHYSICIAN: Hospitalist Service CONSULTING PHYSICIAN: Rosalio Guzman M.D. HISTORY OF PRESENT ILLNESS: This is a 63-year-old woman with rapidly progressive dementia. History is from her sister, who is her dye tank tender. Apparently 4 years back, her sister went grocery shopping. She did not come home. They found her at the grocery store wandering, and that was the beginning of her dementia. It has been very progressive. She now babbles gibberish. No one can understand her. She recognizes her sister. She ambulates a few steps. She needs to be fed. She has tremors at baseline. There is no family history of dementia or Parkinson disease. She was hospitalized last February at [facility] for aggressive behavior. She was hospitalized here August 15 to August 172017 for nausea and vomiting. Several days ago she became more aggressive at home. She was difficult to manage, she was very agitated, she was brought to the emergency room last night. In the ER she was noted to have a low-grade fever, a white count of 13,000, positive white cells in her urine. She got Zosyn overnight, and she got some fluids. The sister now reports she is much improved. She fed her breakfast which she ate well, and she is almost back to her baseline. ALLERGIES: She has no known drug allergies. PAST MEDICAL HISTORY: Notable for dementia. SURGICAL HISTORY: Negative. SOCIAL HISTORY: She resides with her sister. There is no history of cigarette, alcohol, or substance use. FAMILY HISTORY: Negative for Parkinson's or for dementia; it is positive for diabetes. ALLERGIES: She has no known drug allergies. MEDICATION: At home include Aricept, Lexapro, memantine, mirtazapine, and risperidone. She has been seen once by a neurologist, and she has a primary care doctor. REVIEW OF SYSTEMS: There has been no nausea, vomiting. She has had decreased oral intake and she has been sleeping poorly and has been agitated. She had a similar episode of this when she was hospitalized at [facility] last year. PHYSICAL EXAMINATION: VITAL SIGNS: Her T-max is 100.1. Temperature now is 98.3. Pulse 94. Blood pressure 137/80. Respiratory rate 18. She is saturating 100% on room air. HEENT: Normocephalic. Eyes are anicteric. GENERAL: She has a tremor, and she keeps moving her arms and legs. NECK: Supple. She has no meningeal signs. LUNGS: Clear to auscultation. HEART: Regular rate and rhythm. ABDOMEN: Soft, nontender. She has no suprapubic or CVA tenderness. EXTREMITIES: Without edema. LABORATORY: Notable for white count of 13.1, this morning is 9.3. BUN and creatinine are 11 and 0.7. Lactic acid was high as 3.4, has come down to 2.1. Urinalysis has 1+ leukocyte esterase with 13 white cells. She had a chest x-ray that shows no infiltrates. She had a head CT that showed moderate atrophy. IMPRESSION: In summary, this is a 63-year-old woman with change in mental status, that is already improved, possible urinary tract infection, dementia, elevated lactic acid. I would follow up cultures, continue ceftriaxone. Check an RPR and a TSH and neurology consult has been requested which is pending. Case was discussed with the hospitalist. ROSALIO GUZMAN M.D. [id number]
--- NOTE | 2018-12-10 20:30 | CONSULT ---
Consult - text type - Consultation Consultation Note: NEUROLOGY CONSULTATION is greatly appreciated: This 63 yo RH, sep. woman with 5 surviving children lives with her sister and brother in law who are at the bedside and provide history. PMH sig for depression and progressive cognitive decline x 5 years. -FH of AD. Maintained on Donepezil 5 mg; Escitalopram 10 mg PO BID; Memantine HCl 5 mg PO BID; Mirtazapine 30 mg; and Risperidone 0.25 mg BID. Her recent baseline: ambulates with assist; appetite and swallowing OK; needs assist with ALL ADL's. Over the last 4 days patient has been more tremulous and confused. No sleep x 4 nights (poor sleep at baseline). In ER found to have low grade temp (100.1); WBC=13.1 K and urinary WBC=13. L23=457 pg%; TSH= 1.52 and RPR is Neg. Now on ceftriaxone. ALESSANDRA: no head trauma. Neck rigid in all directions. No bruits. Cor reg. NEURO: Awake, alert. Gibberish speech. Follows no commands. + Glabella, snout, suck, grasps and palmomentals CN II-XII: Full schultz to threat. Full EOM's, No facial. Gag OK Motor: Coarse rest tremor of the arms and legs. Increased tone with cogwheel rigidity. Normal strength. Brisk reflexes. Toes downgoing. Coord: No obvious dystaxia Sensory: Grimaces to pinch throughout. Gait: Gets up with assist. Flexed. Frozen. Festinating. IMP: Severe, B/L cerebral dysfunction (OMS, Chronic) c/w advanced Alzheimer's Disease (AD Prominent extra pyramidal features worsened by Risperidal All worsened by Toxic-metabolic encephalopathy (UTI). SUGGEST: Continue antibiotics and hydration Taper and D/C Risperidal. Instead use quetiapine 50 mg qHS Decrease lexapro to 10 mg q AM Decrease Mirtazepine to 15 mg QHS Continue Donepezil and Memantine. Thank you very much, Ted Marrero MD
[2018-12-10] MEDS: QUEtiapine FUMARATE 25 MG TABLET (FP) PO SCH (23:19)
[2018-12-11 07:42] LABS: BASO % 0.4 % (0-2.0); EOS % 2.4 % (0-4.5); HEMOGLOBIN 10.7 GM/dL (10.7-15.3); LYMPH % 39.8 % (8-40); MCH 27.9 pg (25.7-33.7); MCHC 32.5 g/dl (32.0-36.0); MEAN CELL VOLUME 85.8 fl (80-96); MEAN PLT VOLUME 8.7 fl (7.5-11.1); MONO % 8.9 % (3.8-10.2); NEUT % 48.5 % (42.8-82.8); PLATELET COUNT 266 K/MM3 (134-434); RBC 3.85 M/mm3 (3.60-5.2); RDW 13.6 % (11.6-15.6); WHITE BLOOD COUNT 8.5 K/mm3 (4.0-10.0)
[2018-12-11 08:01] LABS: ANION GAP 8 MMOL/L (8-16); BLOOD UREA NITROGEN 6 mg/dL (7-18); CALCIUM 8.8 mg/dL (8.5-10.1); CHLORIDE 112 mmol/L (98-107); CO2 22 mmol/L (21-32); CREATININE 0.6 mg/dL (0.55-1.3); GLUCOSE,RANDOM 99 mg/dL (74-106); MAGNESIUM 2.4 mg/dL (1.8-2.4); PHOSPHOROUS 3.5 mg/dL (2.5-4.9); POTASSIUM 3.8 mmol/L (3.5-5.1); SODIUM 142 mmol/L (136-145)
--- NOTE | 2018-12-11 08:55 | PN ---
Progress Note, Physician Chief Complaint: Unable to obtain. Sister at bedside says she thinks she is in pain. - Current Medication List Current Medications: Active Medications Donepezil HCl (Aricept -) 5 mg PO DAILY [facility] Escitalopram Oxalate (Lexapro -) 10 mg PO DAILY [facility] Heparin Sodium (Porcine) (Heparin -) 5,000 unit SQ BID [facility] Last Admin: 12/10/18 23:19 Dose: 5,000 unit Ceftriaxone Sodium 1 gm/ (Dextrose) 50 mls @ 200 mls/hr IVPB DAILY [facility]; Protocol Last Admin: 12/10/18 12:10 Dose: 200 mls/hr Non-Formulary Medication (Memantine Hcl [Memantine Hcl]) 2 mg PO BID [facility] Polyethylene Glycol (Miralax (For Daily Use) -) 17 gm PO DAILY [facility] Last Admin: 12/10/18 12:11 Dose: 17 grams Quetiapine Fumarate (Seroquel -) 50 mg PO HS [facility] Last Admin: 12/10/18 23:19 Dose: 50 mg Senna (Senna -) 2 tab PO HS PRN PRN Reason: CONSTIPATION - Objective Vital Signs: Vital Signs Temperature 36.9 C 12/11/18 06:00 Pulse Rate 85 12/11/18 06:00 Respiratory Rate 18 12/11/18 06:00 Blood Pressure 140/81 12/11/18 06:00 O2 Sat by Pulse Oximetry (%) 98 12/10/18 21:00 Constitutional: Yes: Well Nourished, No Distress, Calm Cardiovascular: Yes: Regular Rate and Rhythm. No: Gallop, Murmur, Rub Respiratory: Yes: Regular, CTA Bilaterally. No: Rales, Rhonchi, Wheezes Gastrointestinal: Yes: Normal Bowel Sounds, Soft. No: Distention, Tenderness Extremities: Yes: WNL Edema: No Labs: CBC, BMP 12/11/18 05:00 12/11/18 05:00 INR, PTT INR 0.99 (0.83-1.09) 12/09/18 21:57 Problem List - Problems (1) UTI (urinary tract infection) Code(s): N39.0 - URINARY TRACT INFECTION, SITE NOT SPECIFIED Qualifiers: Urinary tract infection type: acute cystitis Hematuria presence: without hematuria Qualified Code(s): N30.00 - Acute cystitis without hematuria (2) Sepsis Code(s): A41.9 - SEPSIS, UNSPECIFIED ORGANISM (3) Acute metabolic encephalopathy Code(s): G93.41 - METABOLIC ENCEPHALOPATHY (4) Dementia Code(s): F03.90 - UNSPECIFIED DEMENTIA WITHOUT BEHAVIORAL DISTURBANCE (5) Hypernatremia Code(s): E87.0 - HYPEROSMOLALITY AND HYPERNATREMIA Assessment/Plan (1) UTI (urinary tract infection) Assessment/Plan: -continue rocephin day 2 -ID following -follow up cultures Code(s): N39.0 - URINARY TRACT INFECTION, SITE NOT SPECIFIED Qualifiers: Urinary tract infection type: acute cystitis Hematuria presence: without hematuria Qualified Code(s): N30.00 - Acute cystitis without hematuria (2) Sepsis Assessment/Plan: -resolved Code(s): A41.9 - SEPSIS, UNSPECIFIED ORGANISM (3) Acute metabolic encephalopathy Assessment/Plan: -suspect at baseline -monitor Code(s): G93.41 - METABOLIC ENCEPHALOPATHY (4) Dementia Assessment/Plan: -neurology consulted and note reviewed -lexapro decreased -will hold on restarting mirtazipine since now on seroquel -continue seroquel -restart aricept and memantidine Code(s): F03.90 - UNSPECIFIED DEMENTIA WITHOUT BEHAVIORAL DISTURBANCE (5) Hypernatremia Assessment/Plan: -resolved -monitor off IVF Code(s): E87.0 - HYPEROSMOLALITY AND HYPERNATREMIA (6) Pain -prn tylenol
[2018-12-11] MEDS ORDERED: MEMANTINE PO SCH (10:00)
[2018-12-11] MEDS ORDERED: DEXTROSE 5%-WATER - 50 ML IVPB ONE (10:54)
[2018-12-11] MEDS ORDERED: cefTRIAXone SODIUM 1 GM VIAL ONE (10:54)
[2018-12-11] MEDS: POLYETHYLENE GLYCOL 3350 119 GM BTL PO SCH (10:59)
[2018-12-11] MEDS: ESCITALOPRAM OXALATE 10 MG TABLET (FP) PO SCH (10:59)
[2018-12-11] MEDS: MEMANTINE HCL 5 MG TABLET (UD) PO SCH ×2 (10:59→21:16)
[2018-12-11] MEDS: CEFTRIAXONE 1 GM in DEXTROSE 5%-WATER - 50 ML IVPB SCH (10:59)
[2018-12-11] MEDS: DONEPEZIL HCL 5 MG TABLET (FP) PO SCH (11:00)
[2018-12-11] MEDS: ACETAMINOPHEN 325 MG TABLET (FP) PO PRN ×3 (11:00→20:30)
[2018-12-11] MEDS: HEPARIN NA (PORCINE) 5,000 UNITS/ML 1ML VIAL SQ SCH ×2 (11:00→21:16)
[2018-12-11] MEDS: METOPROLOL TARTRATE 25 MG TABLET (FP) PO SCH ×2 (16:50→21:15)
[2018-12-11] MEDS ORDERED: ACETAMINOPHEN 1000 MG/100 ML VIAL (NON FORMULARY) IVPB PRN (20:49)
[2018-12-11] MEDS ORDERED: METOPROLOL TARTRATE 5 MG/5 ML VIAL IVPB PRN (20:50)
[2018-12-11] MEDS: QUEtiapine FUMARATE 25 MG TABLET (FP) PO SCH (21:16)
[2018-12-12 08:06] LABS: BASO % 0.8 % (0-2.0); EOS % 2.1 % (0-4.5); HEMATOCRIT 35.7 % (32.4-45.2); HEMOGLOBIN 11.7 GM/dL (10.7-15.3); LYMPH % 34.1 % (8-40); MCH 27.6 pg (25.7-33.7); MCHC 32.7 g/dl (32.0-36.0); MEAN CELL VOLUME 84.4 fl (80-96); MEAN PLT VOLUME 8.6 fl (7.5-11.1); MONO % 7.8 % (3.8-10.2); NEUT % 55.2 % (42.8-82.8); PLATELET COUNT 296 K/MM3 (134-434); RBC 4.23 M/mm3 (3.60-5.2); RDW 13.4 % (11.6-15.6); WHITE BLOOD COUNT 8.4 K/mm3 (4.0-10.0)
[2018-12-12 08:19] LABS: ANION GAP 6 MMOL/L (8-16); BLOOD UREA NITROGEN 7 mg/dL (7-18); CALCIUM 8.8 mg/dL (8.5-10.1); CHLORIDE 111 mmol/L (98-107); CO2 24 mmol/L (21-32); CREATININE 0.7 mg/dL (0.55-1.3); GLUCOSE,RANDOM 91 mg/dL (74-106); MAGNESIUM 2.2 mg/dL (1.8-2.4); PHOSPHOROUS 3.9 mg/dL (2.5-4.9); POTASSIUM 3.9 mmol/L (3.5-5.1); SODIUM 141 mmol/L (136-145)
[2018-12-12] MEDS ORDERED: cefTRIAXone SODIUM 1 GM VIAL ONE (08:54)
[2018-12-12] MEDS ORDERED: DEXTROSE 5%-WATER - 50 ML IVPB ONE (08:54)
[2018-12-12] MEDS: ESCITALOPRAM OXALATE 10 MG TABLET (FP) PO SCH (09:11)
[2018-12-12] MEDS: MEMANTINE HCL 5 MG TABLET (UD) PO SCH (09:11)
[2018-12-12] MEDS: METOPROLOL TARTRATE 25 MG TABLET (FP) PO SCH (09:11)
[2018-12-12] MEDS: CEFTRIAXONE 1 GM in DEXTROSE 5%-WATER - 50 ML IVPB SCH (09:12)
[2018-12-12] MEDS: DONEPEZIL HCL 5 MG TABLET (FP) PO SCH (09:13)
[2018-12-12] MEDS: POLYETHYLENE GLYCOL 3350 119 GM BTL PO SCH (09:14)
[2018-12-12] MEDS: HEPARIN NA (PORCINE) 5,000 UNITS/ML 1ML VIAL SQ SCH (09:16)
[2018-12-12 12:10] VITALS: TEMP 98.8
[2018-12-12 15:37] VITALS: BP 151/82; PULSE 70
--- NOTE | 2018-12-12 15:39 | DS ---
Physical Examination Vital Signs: Vital Signs Temperature 37.1 C 12/12/18 09:05 Pulse Rate 70 12/12/18 15:34 Respiratory Rate 20 12/12/18 15:34 Blood Pressure 151/82 12/12/18 15:34 O2 Sat by Pulse Oximetry (%) 98 12/12/18 09:06 Constitutional: Yes: Well Nourished, No Distress, Calm Cardiovascular: Yes: Regular Rate and Rhythm. No: Gallop, Murmur, Rub Respiratory: Yes: Regular, CTA Bilaterally. No: Rales, Rhonchi, Wheezes Gastrointestinal: Yes: Normal Bowel Sounds, Soft. No: Distention, Tenderness Extremities: Yes: WNL Edema: No Labs: CBC, BMP 12/12/18 06:10 12/12/18 06:10 Discharge Summary Reason For Visit: URINARY TRACT INFECTION, SEPSIS, AMS Current Active Problems Acute metabolic encephalopathy (Acute) Altered mental status (Acute) Dementia (Acute) Hypernatremia (Acute) Lactic acidosis (Acute) Sepsis (Acute) UTI (urinary tract infection) (Acute) Hospital Course: (1) UTI (urinary tract infection) Code(s): N39.0 - URINARY TRACT INFECTION, SITE NOT SPECIFIED Qualifiers: Urinary tract infection type: acute cystitis Hematuria presence: without hematuria Qualified Code(s): N30.00 - Acute cystitis without hematuria (2) Sepsis Code(s): A41.9 - SEPSIS, UNSPECIFIED ORGANISM (3) Acute metabolic encephalopathy Code(s): G93.41 - METABOLIC ENCEPHALOPATHY (4) Dementia Code(s): F03.90 - UNSPECIFIED DEMENTIA WITHOUT BEHAVIORAL DISTURBANCE (5) Hypernatremia Code(s): E87.0 - HYPEROSMOLALITY AND HYPERNATREMIA Ms Joseluis Lee is a pleasat 63 year old female who came in with AMS secondary to SIRS. There was concern for sepsis and UTI, she was admitted to the hospital and seen by ID. She was started on rocephin and IVF. She improved and returned to baseline. She was seen by neurology and her medications were adjusted. Her urine culture came back negative, will stop antibiotics. She is safe to discharge home with family on adjusted dementia medications. 31 minutes spent in preparation of this discharge Condition: Stable - Instructions Diet, Activity, Other Instructions: resume previous diet and activity Referrals: Ziggy Sharma [Primary Care Provider] - Ted Marrero MD [Staff Physician] - Disposition: HOME - Home Medications Comprehensive Discharge Medication List: Ambulatory Orders Donepezil HCl [Aricept] 5 mg PO DAILY 08/16/18 Memantine HCl 2 mg PO BID 08/16/18 Escitalopram Oxalate [Lexapro -] 10 mg PO DAILY #30 tablet 12/12/18 Metoprolol Tartrate [Lopressor -] 25 mg PO BID #60 tablet 12/12/18 Quetiapine Fumarate [Seroquel -] 50 mg PO HS #60 tablet 12/12/18
--- NOTE | 2018-12-13 15:36 | EKG ---
Test Reason : Blood Pressure : / mmHG Vent. Rate : 111 BPM Atrial Rate : 111 BPM P-R Int : 120 ms QRS Dur : 078 ms QT Int : 330 ms P-R-T Axes : 047 030 018 degrees QTc Int : 448 ms SINUS TACHYCARDIA OTHERWISE NORMAL ECG WHEN COMPARED WITH ECG OF 15-AUG-2018 18:17, VENT. RATE HAS INCREASED BY 44 BPM Confirmed by RUBENS TABOR MD ([id number]) on 12/13/2018 3:35:57 PM Referred By: Confirmed By:RUBENS TABOR MD
== END 2018-12-12 17:52 | disposition home or self-care (01) | DRG 720 ==
LOC: JER 20:19 → JERBED 12-10 00:12 → OBSVTOIN 12-10 02:31 → J7W 12-10 09:06
PROVIDERS: ADMIT Internal Medicine; ATTEND Internal Medicine
DX: A41.9 Sepsis, unspecified organism (principal); F05 Delirium due to known physiological condition; E87.0 Hyperosmolality and hypernatremia; G92 Toxic encephalopathy; E87.2 Acidosis; G30.0 Alzheimer's disease with early onset; F02.80 Dementia in other diseases classified elsewhere, unspecified severity, without behavioral disturbance, psychotic disturbance, mood disturbance, and anxiety; N39.0 Urinary tract infection, site not specified
CPT/HCPCS: 36415; 70450-TC; 71045-TC-FY; 80048; 80053; 81003; 82140; 82607; 82746; 82803; 83605; 83735; 84100; 84443; 84484; 85025; 85610; 85730; 86593; 87040; 87086; 93005; 93010; 99283-25; G0378; J0131; J1644; J7030

== ENCOUNTER 2019-01-20 13:21 | Emergency (ER) | payer SELFPAY ==
--- NOTE | 2019-01-20 13:39 | PDOC ---
Rapid Medical Evaluation Medical Evaluation: Allergies Allergy/AdvReac Type Severity Reaction Status Date / Time No Known Allergies Allergy Verified 12/09/18 20:32 I have performed a brief in-person evaluation of this patient. The patient presents with a chief complaint of: Was seen last month for AMS due to possible UTI; abx were stopped when urine culture came back negative (blood cultures also negative); brought in by family as states she was acting "crazy", hitting everybody, throwing things; per family, patient can act this way from her dementia, but concerned she might hurt herself Pertinent physical exam findings: Not hostile or aggressive in ED I have ordered the following: Labs, UA, UCx The patient will proceed to the ED for further evaluation. 01/20/19 13:35
[2019-01-20 13:51] VITALS: BMI 23.6
[2019-01-20] MEDS ORDERED: ACETAMINOPHEN 1000 MG/100 ML VIAL (NON FORMULARY) IVPB ONE (14:41)
--- NOTE | 2019-01-20 14:49 | PDOC ---
History of Present Illness - General Chief Complaint: Altered Mental Status Stated Complaint: CONFUSION Time Seen by Provider: 01/20/19 13:35 History Source: Patient, Family (sister) Exam Limitations: No Limitations - History of Present Illness Initial Comments: 01/20/19 14:39 63 yo female pmh of early onset Alzheimer disease presents to ED from home for sudden onset change in mental status. Pts sister presents who provides HPI due to profound dementia. Pt has gone through waxing and waning AMS bouts but today states pt son visiting from [place], pt became very agitated and began throwing things which is very unusual for her. Pt also has a complaint of a headache which is out of the norm since she generally has no complaints. ROS limited due to Dementia Past History - Past Medical History Allergies/Adverse Reactions: Allergies Allergy/AdvReac Type Severity Reaction Status Date / Time No Known Allergies Allergy Verified 01/20/19 13:39 Home Medications: Ambulatory Orders Donepezil HCl [Aricept] 5 mg PO DAILY 08/16/18 Memantine HCl 2 mg PO BID 08/16/18 Escitalopram Oxalate [Lexapro -] 10 mg PO DAILY #30 tablet 12/12/18 Metoprolol Tartrate [Lopressor -] 25 mg PO BID #60 tablet 12/12/18 Quetiapine Fumarate [Seroquel -] 50 mg PO HS #60 tablet 12/12/18 Anemia: No Asthma: No Cancer: No Cardiac Disorders: No CVA: No COPD: No CHF: No Dementia: Yes (Alzhiemers dx) Diabetes: No GI Disorders: No Disorders: No HTN: No Hypercholesterolemia: No Liver Disease: No Seizures: No Thyroid Disease: No - Surgical History Abdominal Surgery: No Appendectomy: No Cardiac Surgery: No Cholecystectomy: No Lung Surgery: No Neurologic Surgery: No Orthopedic Surgery: No - Immunization History Immunization Up to Date: Yes - Suicide/Smoking/Psychosocial Hx Smoking History: Unknown if ever smoked Have you smoked in the past 12 months: No Information on smoking cessation initiated: No Hx Alcohol Use: No Drug/Substance Use Hx: No Substance Use Type: None Hx Substance Use Treatment: No *Physical Exam - Vital Signs Last Vital Signs Temp Pulse Resp BP Pulse Ox 99.3 F 92 H 16 111/63 96 01/20/19 13:48 01/20/19 13:48 01/20/19 13:48 01/20/19 13:48 01/20/19 13:48 ED Treatment Course - LABORATORY CBC & Chemistry Diagram: 01/20/19 15:59 01/20/19 15:59 Medical Decision Making - Medical Decision Making 01/20/19 18:48 Labs WNL, UA WNL Head CT no acute changes Pt recently saw Dr. Marrero who increased amantidine and quetiapine. Pt sister agrees to call and have an appointment with Dr. Marrero lucia Pt currently at baseline, resting comfortably, NAD *DC/Admit/Observation/Transfer Diagnosis at time of Disposition: Agitation - Discharge Dispostion Disposition: HOME Condition at time of disposition: Stable Decision to Admit order: No - Referrals Referrals: Ted Marrero MD [Staff Physician] - - Patient Instructions Additional Instructions: Please see your Primary Doctor and make an appointment to see Dr. Marrero within the next 48 hours. Continue taking home dosed medications as prescribed. Return to the ER for new or concerning symptoms including but not limited to: pain, high fevers, changes in mental status. Thank you - Post Discharge Activity
[2019-01-20] MEDS ORDERED: QUEtiapine FUMARATE 100 MG TABLET (FP) PO ONE (14:59)
[2019-01-20] MEDS ORDERED: QUEtiapine FUMARATE 100 MG TABLET (FP) ONE (15:21)
[2019-01-20] MEDS ORDERED: ACETAMINOPHEN INJECTION 100 ML IVPB ONE (15:21)
[2019-01-20 16:12] LABS: URINE APPEARANCE CLEAR; URINE BILIRUBIN NEGATIVE (NEGATIVE); URINE COLOR YELLOW; URINE GLUCOSE (UA) NEGATIVE (NEGATIVE); URINE KETONE NEGATIVE (NEGATIVE); URINE LEUK ESTERASE NEGATIVE (NEGATIVE); URINE NITRITE NEGATIVE (NEGATIVE); URINE PROTEIN NEGATIVE (NEGATIVE); URINE UROBILINOGEN 0.2 mg/dL (0.2-1.0)
[2019-01-20 16:16] LABS: BASO % 1.1 % (0-2.0); EOS % 0.3 % (0-4.5); HEMATOCRIT 36.2 % (32.4-45.2); HEMOGLOBIN 11.4 GM/dL (10.7-15.3); LYMPH % 17.1 % (8-40); MCH 27.1 pg (25.7-33.7); MCHC 31.6 g/dl (32.0-36.0); MEAN CELL VOLUME 85.6 fl (80-96); MEAN PLT VOLUME 8.1 fl (7.5-11.1); MONO % 6.4 % (3.8-10.2); NEUT % 75.1 % (42.8-82.8); PLATELET COUNT 450 K/MM3 (134-434); RBC 4.22 M/mm3 (3.60-5.2); RDW 14.2 % (11.6-15.6); WHITE BLOOD COUNT 12.4 K/mm3 (4.0-10.0)
--- NOTE | 2019-01-20 16:21 | PDOC ---
Documentation entered by Casandra Correia SCRIBE, acting as scribe for Poncho Silverman MD. Poncho Silverman MD: This documentation has been prepared by the Masood haji Nirvannie, SCRIBE, under my direction and personally reviewed by me in its entirety. I confirm that the documentation accurately reflects all work, treatment, procedures, and medical decision making performed by me. Attending Attestation - Resident Resident Name: Garrettanne-marieAsh - ED Attending Attestation I have performed the following: I have examined & evaluated the patient, The case was reviewed & discussed with the resident, I agree w/resident's findings & plan, Exceptions are as noted - HPI HPI: 01/20/19 15:05 The patient is a 63 year old female, with a significant past medical history of early onset Alzheimers, who presents to the emergency department with agitation. As per family at bedside, pt is baseline very confused due to her alzheimers. She often speaks to herself and occasionally gets agitated. Today, when pt's son came home and pt became acutely agitated, swinging at him. Pt was very hard to redirect. Family notes similar symptoms last month at which time she was admitted for a UTI. No fevers noted at home. Allergies: NKDA Past surgical history: None reported. Social history: Nonsmoker. Denies EtOH use and recreational drug use. Primary Care Physician: Dr. Ziggy Sharma - Physicial Exam PE: 01/20/19 15:05 GENERAL: Awake, alert, confused, in no acute distress. HEAD: No signs of trauma EYES: PERRLA, EOMI, sclera anicteric, conjunctiva clear ENT: Auricles normal inspection, hearing grossly normal, nares patent, oropharynx clear without exudates. Moist mucosa NECK: Nontender, no stepoffs, Normal ROM, supple, no lymphadenopathy, JVD, or masses LUNGS: Breath sounds equal, clear to auscultation bilaterally. No wheezes, and no crackles HEART: Regular rate and rhythm, normal S1 and S2, no murmurs, rubs or gallops ABDOMEN: Soft, nontender, normoactive bowel sounds. No guarding, no rebound. No masses EXTREMITIES: Normal range of motion, no edema. No clubbing or cyanosis. No cords, erythema, or tenderness NEUROLOGICAL: Cranial nerves II through XII intact. 5/5 strength and sensation in all extremities SKIN: Warm, Dry, normal turgor, no rashes or lesions noted. - Medical Decision Making 01/20/19 16:20 63 F with agitation and combativeness today. Suspect this is 2/2 pt's worsening dementia. Will evaluate for infectious/metabolic process and obtain head imaging. - Labs - CT head - Seroquel - Discuss with pt's neurologist, Dr. Marrero
[2019-01-20 16:35] LABS: ALBUMIN 3.2 g/dl (3.4-5.0); BILIRUBIN,TOTAL 0.2 mg/dL (0.2-1); CALCIUM 9.4 mg/dL (8.5-10.1); CREATININE 0.7 mg/dL (0.55-1.3); POTASSIUM 4.3 mmol/L (3.5-5.1); TOT PROT 7.8 g/dl (6.4-8.2)
[2019-01-20 19:28] VITALS: BP 102/65; PULSE 86; TEMP 98.1
--- NOTE | 2019-01-21 14:45 | EKG ---
Test Reason : Blood Pressure : / mmHG Vent. Rate : 097 BPM Atrial Rate : 097 BPM P-R Int : 114 ms QRS Dur : 078 ms QT Int : 356 ms P-R-T Axes : 062 065 060 degrees QTc Int : 452 ms NORMAL SINUS RHYTHM POOR DATA QUALITY, INTERPRETATION MAY BE ADVERSELY AFFECTED Confirmed by ELFEGO ESCOBAR MD ([id number]) on 01/21/2019 2:45:21 PM Referred By: Confirmed By:ELFEGO ESCOBAR MD
== END 2019-01-20 19:30 | disposition home or self-care (01) ==
LOC: JER 13:21
PROC: 3E0333Z Introduction of Anti-inflammatory into Peripheral Vein, Percutaneous Approach (ICD-10-PCS; principal; 2019-01-20)
DX: G30.8 Other Alzheimer's disease (principal); F02.81 Dementia in other diseases classified elsewhere, unspecified severity, with behavioral disturbance
CPT/HCPCS: 36415; 70450-TC; 71045-TC-FY; 80053; 81003; 85025; 87086; 93005; 93010; 99283-25; J0131

== ENCOUNTER 2019-03-01 00:19 | Emergency (ER) | payer OTHER | END 2019-03-01 07:00 | disposition home or self-care (01) | LOC: JER 00:19 ==

== ENCOUNTER 2019-06-29 17:50 | Inpatient (IN) | payer OTHER ==
--- NOTE | 2019-06-29 18:46 | PDOC ---
History of Present Illness - General Chief Complaint: Urinary Problem Stated Complaint: WEAKNESS Time Seen by Provider: 06/29/19 18:22 - History of Present Illness Initial Comments: Ms. Joseluis Lee is a 64 y/o female with PMH of Alzheimer's dementia presenting today with 3 days of altered mental status, weakness, and leaning to one side. Per sister, she went to the [facility] for 3 months over the summer. Reports that she fell from the bed a couple times while visiting abroad. Three days ago, she started experiencing some weakness and leaning to the left side while seated. She is oriented x1 which is her baseline. Sister also notes foul smelling urine but no hematuria. Reports mild cough. Denies fever, chills, nausea, vomiting, diarrhea. Past History - Past Medical History Allergies/Adverse Reactions: Allergies Allergy/AdvReac Type Severity Reaction Status Date / Time No Known Allergies Allergy Verified 06/29/19 18:22 Home Medications: Ambulatory Orders Donepezil HCl [Aricept] 10 mg PO DAILY 08/16/18 Multivitamin [One-Daily Multi-Vitamin] 1 each PO DAILY 06/30/19 Olanzapine 2.5 mg PO BID 06/30/19 Cyanocobalamin [Vitamin B12 -] 1,000 mcg PO DAILY #30 tablet 07/01/19 Anemia: No Asthma: No Cancer: No Cardiac Disorders: No CVA: No COPD: No CHF: No Dementia: Yes (Alzhiemers dx) Diabetes: No GI Disorders: No Disorders: No HTN: No Hypercholesterolemia: No Liver Disease: No Seizures: No Thyroid Disease: No - Surgical History Abdominal Surgery: No Appendectomy: No Cardiac Surgery: No Cholecystectomy: No Lung Surgery: No Neurologic Surgery: No Orthopedic Surgery: No - Immunization History Immunization Up to Date: Yes - Psycho Social/Smoking Cessation Hx Smoking History: Never smoked Have you smoked in the past 12 months: No Information on smoking cessation initiated: No Hx Alcohol Use: No Drug/Substance Use Hx: No Substance Use Type: None Hx Substance Use Treatment: No Review of Systems - Review of Systems Comments:: Limited 2/2 dementia. GENERAL/CONSTITUTIONAL: No fever or chills. Reports mild weakness. CARDIOVASCULAR: No chest pain or shortness of breath_ RESPIRATORY: Reports mild cough. GASTROINTESTINAL: No nausea, vomiting, diarrhea or constipation._ GENITOURINARY: Foul smelling urine per sister. MUSCULOSKELETAL: No joint or muscle swelling or pain. No neck or back pain._ SKIN: No rash *Physical Exam - Vital Signs Last Vital Signs Temp Pulse Resp BP Pulse Ox 97.8 F 67 18 106/71 98 06/29/19 18:22 06/29/19 18:22 06/29/19 18:22 06/29/19 18:22 06/29/19 18:22 - Physical Exam Comments: Limited 2/2 dementia. GENERAL: Awake, and oriented x1 to person, in no acute distress_ HEAD: No signs of trauma, normocephalic, atraumatic _ EYES: PERRLA, EOMI, sclera anicteric, conjunctiva clear_ ENT: Hearing grossly normal, nares patent, oropharynx clear without exudates. No uvular deviation. Moist mucosa_ NECK: Normal ROM, supple, no lymphadenopathy, JVD, or masses_ LUNGS: No distress, clear to auscultation bilaterally _ HEART: Regular rate and rhythm, normal S1 and S2, no murmurs appreciated, peripheral pulses normal and equal bilaterally._ ABDOMEN: Soft, TTP RUQ and RLQ. Non-distended. No guarding, no rebound. No masses_ EXTREMITIES: Moving all four extremities. NEUROLOGICAL: Unable to assess SKIN: Warm, Dry, normal turgor, no rashes or lesions noted_ ED Treatment Course - LABORATORY CBC & Chemistry Diagram: 07/01/19 07:38 07/01/19 07:38 - RADIOLOGY Radiology Studies Ordered: Category Date Time Status HEAD CT WITHOUT CONTRAST [CT] Stat CT Scan 06/29/19 18:41 Ordered CHEST X-RAY PORTABLE* [RAD] Stat Radiology 06/29/19 18:41 Ordered Medical Decision Making - Medical Decision Making 06/29/19 18:40 64F with hx of Alzheimer's presenting with 3 days of weakness, leaning to one side, and foul smelling urine. DDx is broad and includes TIA vs stroke vs hypoglycemia vs r/o ACS vs UTI vs pyelo. Obtain CBC, CMP, EKG, CXR, trop, CT head w/o contrast, UA/UC, fingerstick blood glucose. 06/29/19 1858 EKG shows NSR, 65 bpm, no ST elevation/depression, no axis deviation, QTc 426. 10/23/19 20:46 Labs reviewed and wnl. 06/29/19 21:09 UA reviewed, does not show signs of UTI at this point. 06/29/19 21:57 Patient signed out to Dr. Amado. Plan to admit for tele obs. Discharge - Discharge Information Problems reviewed: Yes Clinical Impression/Diagnosis: Altered mental status Condition: Stable - Follow up/Referral - Patient Discharge Instructions - Post Discharge Activity
--- NOTE | 2019-06-29 19:53 | PDOC ---
Attending Attestation - Resident Resident Name: Williams Brown - ED Attending Attestation I have performed the following: I have examined & evaluated the patient, The case was reviewed & discussed with the resident, I agree w/resident's findings & plan - HPI HPI: 06/29/19 21:44 see resident hpi - Physicial Exam PE: 06/29/19 21:44 agree with resident exam - Medical Decision Making 06/29/19 21:47 64-year-old female with history of dementia now with decreased responsiveness and leaning to the right over the last 3 days Labs, urinalysis, EKG CT scan of the head and abdomen Plan for admission to medical service pending results
[2019-06-29 20:20] LABS: BASO % 0.8 % (0-2.0); EOS % 1.4 % (0-4.5); HEMATOCRIT 39.5 % (32.4-45.2); HEMOGLOBIN 12.6 GM/dL (10.7-15.3); LYMPH % 36.8 % (8-40); MCH 27.6 pg (25.7-33.7); MCHC 31.8 g/dl (32.0-36.0); MEAN CELL VOLUME 86.7 fl (80-96); MEAN PLT VOLUME 8.4 fl (7.5-11.1); PLATELET COUNT 310 K/MM3 (134-434); RBC 4.56 M/mm3 (3.60-5.2); RDW 13.7 % (11.6-15.6); WHITE BLOOD COUNT 9.7 K/mm3 (4.0-10.0)
[2019-06-29 20:45] LABS: ALBUMIN 3.4 g/dl (3.4-5.0); ALK PHOS 67 U/L (45-117); ANION GAP 6 MMOL/L (8-16); BILIRUBIN,TOTAL 0.3 mg/dL (0.2-1); BLOOD UREA NITROGEN 13.2 mg/dL (7-18); CALCIUM 9.2 mg/dL (8.5-10.1); CHLORIDE 107 mmol/L (98-107); CO2 28 mmol/L (21-32); CREATININE 0.7 mg/dL (0.55-1.3); GLUCOSE,RANDOM 72 mg/dL (74-106); POTASSIUM 4.4 mmol/L (3.5-5.1); SGOT/AST 19 U/L (15-37); SGPT/ALT 17 U/L (13-61); SODIUM 141 mmol/L (136-145); TOT PROT 7.2 g/dl (6.4-8.2)
[2019-06-29 20:55] LABS: URINE APPEARANCE CLEAR; URINE BILIRUBIN NEGATIVE (NEGATIVE); URINE COLOR YELLOW; URINE GLUCOSE (UA) NEGATIVE (NEGATIVE); URINE KETONE NEGATIVE (NEGATIVE); URINE LEUK ESTERASE NEGATIVE (NEGATIVE); URINE NITRITE NEGATIVE (NEGATIVE); URINE PROTEIN NEGATIVE (NEGATIVE); URINE UROBILINOGEN 0.2 mg/dL (0.2-1.0)
--- NOTE | 2019-06-29 23:23 | PDOC ---
*Physical Exam - Vital Signs Last Vital Signs Temp Pulse Resp BP Pulse Ox 97.8 F 67 18 106/71 98 06/29/19 18:22 06/29/19 18:22 06/29/19 18:22 06/29/19 18:22 06/29/19 18:22 - Physical Exam Comments: 06/29/19 23:21 Received sign out from Dr. Brown 06/30/19 07:00 Spoke to neurology as the request of the admitting team. neurology auction block clerk states an MRI in the morning would be appropriate. no further recommendations given. no emergent interventions ED Treatment Course - LABORATORY CBC & Chemistry Diagram: 06/30/19 12:22 06/30/19 12:22 - ADDITIONAL ORDERS Additional order review: Laboratory Results 06/29/19 06/29/19 20:28 20:00 Sodium 141 Potassium 4.4 Chloride 107 Carbon Dioxide 28 Anion Gap 6 L BUN 13.2 Creatinine 0.7 Est GFR (CKD-EPI)AfAm 105.38 Est GFR (CKD-EPI)NonAf 90.92 Random Glucose 72 L Calcium 9.2 Total Bilirubin 0.3 AST 19 ALT 17 Alkaline Phosphatase 67 Creatine Kinase 122 Troponin I < 0.02 Total Protein 7.2 Albumin 3.4 Urine Color Yellow Urine Appearance Clear Urine pH 7.0 D Ur Specific [place] 1.013 Urine Protein Negative Urine Glucose (UA) Negative Urine Ketones Negative Urine Blood Negative Urine Nitrite Negative Urine Bilirubin Negative Urine Urobilinogen 0.2 Ur Leukocyte Esterase Negative 06/29/19 20:00 RBC 4.56 MCV 86.7 MCHC 31.8 L RDW 13.7 MPV 8.4 Neutrophils % 51.0 Lymphocytes % 36.8 Monocytes % 10.0 Eosinophils % 1.4 D Basophils % 0.8 Medical Decision Making - Medical Decision Making 06/30/19 06:51 Patient was re-examined by me at the time of sign out. Patient does not follow commands but moves all 4 extremities sponatneously. The patient's sister stated that she is not at baseline which she is normally more conversive. Microblog was sent at approximately 11:30 pm. Admission team requesting emergent consult to neurology. At this time, the ED does not feel an emergent consult needed. Patient was signed out to morning team for pending admission team. Discharge - Discharge Information Problems reviewed: Yes Clinical Impression/Diagnosis: Altered mental status - Follow up/Referral - Patient Discharge Instructions - Post Discharge Activity
--- NOTE | 2019-06-30 02:58 | PDOC ---
Attending Attestation - Resident Resident Name: Williams Brown - ED Attending Attestation I have performed the following: I have examined & evaluated the patient, The case was reviewed & discussed with the resident, I agree w/resident's findings & plan - HPI HPI: 06/30/19 01:13 see resident hpi - Physicial Exam PE: 06/30/19 01:14 agree with resident exam - Medical Decision Making 06/30/19 01:14 64-year-old female with altered mental status x3 days CT scan of the brain shows no acute abnormality Due to decline in mental status and difficult history secondary to dementia patient will be admitted to medical service for further evaluation Neurological consultation for the morning has been ordered with patient's regular neurologist
--- NOTE | 2019-06-30 07:13 | PDOC ---
*Physical Exam - Vital Signs Last Vital Signs Temp Pulse Resp BP Pulse Ox 97.3 F L 64 18 127/76 95 06/30/19 06:48 06/30/19 06:48 06/30/19 06:48 06/30/19 06:48 06/30/19 06:48 - Physical Exam Comments: MDM: Received sign out from resident Dr. Amado. In short, the pt is a 64 y/o female with Alzheimers dementia presenting with altered mental status. Dr. Kim of neurology service was consulted and requested an MRI. Will evaluate the pt in the morning. Will f/u pending admission process. 30 Jun 2019 09:20 AM Case discussed with Emma. Will admit to stroke floor for attending Dr. Pedro. ED Treatment Course - LABORATORY CBC & Chemistry Diagram: 06/29/19 20:00 06/29/19 20:00 - ADDITIONAL ORDERS Additional order review: Laboratory Results 06/29/19 06/29/19 20:28 20:00 Sodium 141 Potassium 4.4 Chloride 107 Carbon Dioxide 28 Anion Gap 6 L BUN 13.2 Creatinine 0.7 Est GFR (CKD-EPI)AfAm 105.38 Est GFR (CKD-EPI)NonAf 90.92 Random Glucose 72 L Calcium 9.2 Total Bilirubin 0.3 AST 19 ALT 17 Alkaline Phosphatase 67 Creatine Kinase 122 Troponin I < 0.02 Total Protein 7.2 Albumin 3.4 Urine Color Yellow Urine Appearance Clear Urine pH 7.0 D Ur Specific [place] 1.013 Urine Protein Negative Urine Glucose (UA) Negative Urine Ketones Negative Urine Blood Negative Urine Nitrite Negative Urine Bilirubin Negative Urine Urobilinogen 0.2 Ur Leukocyte Esterase Negative 06/29/19 20:00 RBC 4.56 MCV 86.7 MCHC 31.8 L RDW 13.7 MPV 8.4 Neutrophils % 51.0 Lymphocytes % 36.8 Monocytes % 10.0 Eosinophils % 1.4 D Basophils % 0.8 Discharge - Discharge Information Problems reviewed: Yes Clinical Impression/Diagnosis: Altered mental status Qualifiers: Altered mental status type: unspecified Qualified Code(s): R41.82 - Altered mental status, unspecified - Follow up/Referral - Patient Discharge Instructions - Post Discharge Activity
[2019-06-30] MEDS ORDERED: SODIUM CHLORIDE 1,000 ML IV SCH ×3 (09:00→15:30)
[2019-06-30] MEDS ORDERED: ATORVASTATIN CA 40 MG TABLET (FP) ONE (09:19)
[2019-06-30] MEDS ORDERED: ENOXAPARIN NA (PORCINE) 40 MG/0.4 ML DISP.SYRIN SQ ONE (09:19)
[2019-06-30] MEDS ORDERED: ASPIRIN COATED 81 MG TABLET.EC ONE (09:19)
[2019-06-30] MEDS: ENOXAPARIN NA (PORCINE) 40 MG/0.4 ML DISP.SYRIN SQ SCH (09:20)
--- NOTE | 2019-06-30 09:35 | HP ---
CHIEF COMPLAINT: AMS PCP: HISTORY OF PRESENT ILLNESS: (History taken per sister present at bedside. Pt has dementia at baseline.) 64F w/ pmhx of dementia presents in the ED for altered mental status for 4 days. Sister is present at bedside. About 4 days ago, pt's sister found pt more lethargic, unable to get out of bed, less active than unusual, falling out of her chair and leaning to the left side while sitting. At baseline, pt is completely dependent when performing daily activities (getting out of bed, eating, using the bathroom, walking around the house). Additionally, pt speaks nonsensically, and follows few commands, but is able to swallow normally, and has a shuffling gait, but uses no assistive devices. She uses a diaper as well. Per sister, pt has been afebrile, no chills, n/v, chest pain, sob. Denies urinary/bowel symptoms, significant weight changes. Of note, pt was recently in [facility] with her family for 2 months and arrived in the mid- May still at baseline mental status. She takes Olanzapine and Donepezil for home meds. ER course was notable for: (1) Head CT, CXR, and CTAP all unremarkable. U/A neg, vitals stable. (2) Neuro consulted; brain MRI ordered (3) Recent Travel: Arrived from [facility] last month; was away for 2 months PAST MEDICAL HISTORY: Dementia PAST SURGICAL HISTORY: Per family, no surgical hx Social History: Smoking: Denies Alcohol: Denies Drugs: Denies Allergies No Known Allergies Allergy (Verified 06/29/19 18:22) HOME MEDICATIONS: Home Medications Medication Instructions Recorded Donepezil HCl [Aricept] 10 mg PO DAILY 08/16/18 Multivitamin [One-Daily 1 each PO DAILY 06/30/19 Multi-Vitamin] Olanzapine 2.5 mg PO BID 06/30/19 REVIEW OF SYSTEMS CONSTITUTIONAL: +lethargic Absent: fever, chills, diaphoresis, generalized weakness, malaise, loss of appetite, weight change HEENT: Absent: rhinorrhea, nasal congestion, throat pain, throat swelling, difficulty swallowing, mouth swelling, ear pain, eye pain, visual changes CARDIOVASCULAR: Absent: chest pain, syncope, palpitations, irregular heart rate, lightheadedness , peripheral edema RESPIRATORY: Absent: cough, shortness of breath, dyspnea with exertion, orthopnea, wheezing, stridor, hemoptysis GASTROINTESTINAL: Absent: abdominal pain, abdominal distension, nausea, vomiting, diarrhea, constipation, melena, hematochezia GENITOURINARY: Absent: dysuria, frequency, urgency, hesitancy, hematuria, flank pain, genital pain MUSCULOSKELETAL: Absent: myalgia, arthralgia, joint swelling, back pain, neck pain SKIN: Absent: rash, itching, pallor HEMATOLOGIC/IMMUNOLOGIC: Absent: easy bleeding, easy bruising, lymphadenopathy, frequent infections ENDOCRINE: Absent: unexplained weight gain, unexplained weight loss, heat intolerance, cold intolerance NEUROLOGIC: Absent: headache, focal weakness or paresthesias, dizziness, unsteady gait, seizure, mental status changes, bladder or bowel incontinence PSYCHIATRIC: Absent: anxiety, depression, suicidal or homicidal ideation, hallucinations. PHYSICAL EXAMINATION Vital Signs - 24 hr 06/29/19 06/30/19 06/30/19 18:22 01:46 06:48 Temperature 97.8 F 97.6 F 97.3 F L Pulse Rate 67 Pulse Rate [ 62 64 Apical] Respiratory 18 20 18 Rate Blood Pressure 106/71 Blood Pressure 107/47 L 127/76 [Right] O2 Sat by Pulse 98 95 95 Oximetry (%) GENERAL: Awake. Non-toxic appearing female. NAD. Demented. Speaks nonsensically. HEENT: AT/NC. EOMI. Dry mucus membranes. NECK: Normal range of motion, supple without lymphadenopathy, JVD, or masses. LUNGS: CTA B/L. No wheezes, rhonchi, rales noted. Symmetric chest rise. HEART: RRR. Normal S1, S2. No murmurs noted. ABDOMEN: Soft, NT/ND. Normoactive bowel sounds. No masses noted. MUSCULOSKELETAL: Stiff when moving extremities during passive ROM. No bony deformities or tenderness. No CVA tenderness. EXTREMITIES: 2+ dorsalis pedis pulses. No peripheral edema noted. NEUROLOGICAL: Slight R sided droop noted on lip. Nonsensical speech. Does not follow commands. Unable to complete full neuro exam as pt is demented. SKIN: Warm, dry, normal turgor, no rashes or lesions noted, normal capillary refill. Laboratory Results - last 24 hr 06/29/19 06/29/19 06/29/19 20:00 20:00 20:28 WBC 9.7 RBC 4.56 Hgb 12.6 Hct 39.5 MCV 86.7 MCH 27.6 MCHC 31.8 L RDW 13.7 Plt Count 310 MPV 8.4 Absolute Neuts (auto) 5.0 Neutrophils % 51.0 Lymphocytes % 36.8 Monocytes % 10.0 Eosinophils % 1.4 D Basophils % 0.8 Nucleated RBC % 0 Sodium 141 Potassium 4.4 Chloride 107 Carbon Dioxide 28 Anion Gap 6 L BUN 13.2 Creatinine 0.7 Est GFR (CKD-EPI)AfAm 105.38 Est GFR (CKD-EPI)NonAf 90.92 Random Glucose 72 L Calcium 9.2 Total Bilirubin 0.3 AST 19 ALT 17 Alkaline Phosphatase 67 Creatine Kinase 122 Troponin I < 0.02 Total Protein 7.2 Albumin 3.4 Urine Color Yellow Urine Appearance Clear Urine pH 7.0 D Ur Specific [place] 1.013 Urine Protein Negative Urine Glucose (UA) Negative Urine Ketones Negative Urine Blood Negative Urine Nitrite Negative Urine Bilirubin Negative Urine Urobilinogen 0.2 Ur Leukocyte Esterase Negative ASSESSMENT/PLAN: 64F w/ pmhx of dementia presents in the ED for altered mental status for 4 days. #Acute Metabolic Encephalopathy, r/o stroke vs. worsening dementia -Clinically, pt looks non-toxic appearing with normal WBC, afebrile, CXR and U/ A both neg. Does not appear to have signs of infection attributing to altered mental state -Head CT neg -Neurology consulted -Brain MRI/MRA pending -Speech and swallow eval/Physical therapy eval -HOB elevated -Echo ordered -Carotid duplex ordered -Lipid panel -ASA 81 QD, Lipitor 80 HS #Dementia; Cont home meds: Olanzapine 2.5 BID, Donepezil 10 QD #Prophylaxis DVT: Lovenox 40 SQ FEN -no IVf -recheck lytes in AM -NPO until speech/swallow eval Dispo -admit to tele Visit type - Emergency Visit Emergency Visit: Yes ED Registration Date: 06/30/19 Care time: The patient presented to the Emergency Department on the above date and was hospitalized for further evaluation of their emergent condition. - New Patient This patient is new to me today: Yes Date on this admission: 06/30/19 - Critical Care Critical Care patient: No ATTENDING PHYSICIAN STATEMENT I saw and evaluated the patient. I reviewed the resident's note and discussed the case with the resident. I agree with the resident's findings and plan as documented. SUBJECTIVE: OBJECTIVE: ASSESSMENT AND PLAN:
[2019-06-30] MEDS ORDERED: OLANZapine 10 MG TABLET ONE (09:56)
[2019-06-30] MEDS ORDERED: DONEPEZIL HCL 5 MG TABLET (FP) ONE (09:56)
[2019-06-30] MEDS: DONEPEZIL HCL 5 MG TABLET (FP) PO SCH (09:57)
[2019-06-30] MEDS: MULTIVITAMINS (DAILY MVI) TABLET (FP) PO SCH (09:57)
[2019-06-30] MEDS: ASPIRIN COATED 81 MG TABLET.EC PO SCH (09:57)
[2019-06-30] MEDS: OLANZapine 2.5 MG TABLET PO SCH ×2 (09:57→21:51)
[2019-06-30] MEDS ORDERED: ENOXAPARIN NA (PORCINE) 40 MG/0.4 ML DISP.SYRIN SQ SCH (10:00)
[2019-06-30] MEDS ORDERED: ASPIRIN COATED 81 MG TABLET.EC PO SCH (10:00)
--- NOTE | 2019-06-30 10:10 | CONSULT ---
Consult - text type - Consultation Consultation Note: Neurology CHIEF COMPLAINT: AMS HISTORY OF PRESENT ILLNESS: 64F w/ pmhx of dementia presented for altered mental status for 4 days. Sister was present at bedside uring initial evaluation. About 4 days pprior to admission, pt's sister found pt more lethargic, unable to get out of bed, less active that unusual, falling out of her chair and leaning to the left side while sitting. At baseline, pt is completely dependent when performing daily activities (getting out of bed, eating, using the bathroom, walking around the house). Additionally, pt spoke nonsensically, and followed few commands, but is able to swallow normally, and has a shuffling gait, but uses no assistive devices. She uses a diaper as well. Per sister, pt has been afebrile, no chills , n/v, chest pain, sob. Denied urinary/bowel symptoms, significant weight changes. Of note, pt was recently in [facility] with her family for 2 months and [place] the [place] mid[place] still at baseline mental status. She takes Olanzapine and Donepezil for home meds. the patient was admitted for further evaluation and noncontrast head CT was completed without any acute changes. Chest x-ray and CT of abdomen and pelvis were also unremarkable. Urinalysis was negative and the white count on lab work. the sister did mention left-sided weakness that has been persistent but was nonspecific. I recommend having MRI of the brain to further evaluate. If workup negative I would considerprogression of her underlying dementia as possible etiology. Recent Travel: Arrived from [facility] last month; was away for 2 months PAST MEDICAL HISTORY: Dementia PAST SURGICAL HISTORY: Per family, no surgical hx Social History: Smoking: Denies Alcohol: Denies Drugs: Denies Allergies No Known Allergies Allergy (Verified 06/29/19 18:22) HOME MEDICATIONS: Home Medications Medication Instructions Recorded Donepezil HCl [Aricept] 10 mg PO DAILY 08/16/18 Multivitamin [One-Daily 1 each PO DAILY 06/30/19 Multi-Vitamin] Olanzapine 2.5 mg PO BID 06/30/19 REVIEW OF SYSTEMS CONSTITUTIONAL: +lethargic Absent: fever, chills, diaphoresis, generalized weakness, malaise, loss of appetite, weight change HEENT: Absent: rhinorrhea, nasal congestion, throat pain, throat swelling, difficulty swallowing, mouth swelling, ear pain, eye pain, visual changes CARDIOVASCULAR: Absent: chest pain, syncope, palpitations, irregular heart rate, lightheadedness , peripheral edema RESPIRATORY: Absent: cough, shortness of breath, dyspnea with exertion, orthopnea, wheezing, stridor, hemoptysis GASTROINTESTINAL: Absent: abdominal pain, abdominal distension, nausea, vomiting, diarrhea, constipation, melena, hematochezia GENITOURINARY: Absent: dysuria, frequency, urgency, hesitancy, hematuria, flank pain, genital pain MUSCULOSKELETAL: Absent: myalgia, arthralgia, joint swelling, back pain, neck pain SKIN: Absent: rash, itching, pallor HEMATOLOGIC/IMMUNOLOGIC: Absent: easy bleeding, easy bruising, lymphadenopathy, frequent infections ENDOCRINE: Absent: unexplained weight gain, unexplained weight loss, heat intolerance, cold intolerance NEUROLOGIC: Absent: headache, focal weakness or paresthesias, dizziness, unsteady gait, seizure, mental status changes, bladder or bowel incontinence PSYCHIATRIC: Absent: anxiety, depression, suicidal or homicidal ideation, hallucinations. PHYSICAL EXAMINATION Vital Signs - 24 hr 06/29/19 06/30/19 06/30/19 18:22 01:46 06:48 Temperature 97.8 F 97.6 F 97.3 F L Pulse Rate 67 Pulse Rate [ 62 64 Apical] Respiratory 18 20 18 Rate Blood Pressure 106/71 Blood Pressure 107/47 L 127/76 [Right] O2 Sat by Pulse 98 95 95 Oximetry (%) GENERAL: Awake. Non-toxic appearing female. NAD. Demented. Speaks nonsensically. HEENT: AT/NC. EOMI. Dry mucus membranes. NECK: Normal range of motion, supple without lymphadenopathy, JVD, or masses. LUNGS: CTA B/L. No wheezes, rhonchi, rales noted. Symmetric chest rise. HEART: RRR. Normal S1, S2. No murmurs noted. ABDOMEN: Soft, NT/ND. Normoactive bowel sounds. No masses noted. MUSCULOSKELETAL: Stiff when moving extremities during passive ROM. No bony deformities or tenderness. No CVA tenderness. EXTREMITIES: 2+ dorsalis pedis pulses. No peripheral edema noted. NEUROLOGICAL: Slight R sided droop noted on lip. Nonsensical speech. Does not follow commands. Unable to complete full neuro exam but with slightly reduced strength on left upper and lower extremities. SKIN: Warm, dry, normal turgor, no rashes or lesions noted, normal capillary refill. Laboratory Results - last 24 hr 06/29/19 06/29/19 06/29/19 20:00 20:00 20:28 WBC 9.7 RBC 4.56 Hgb 12.6 Hct 39.5 MCV 86.7 MCH 27.6 MCHC 31.8 L RDW 13.7 Plt Count 310 MPV 8.4 Absolute Neuts (auto) 5.0 Neutrophils % 51.0 Lymphocytes % 36.8 Monocytes % 10.0 Eosinophils % 1.4 D Basophils % 0.8 Nucleated RBC % 0 Sodium 141 Potassium 4.4 Chloride 107 Carbon Dioxide 28 Anion Gap 6 L BUN 13.2 Creatinine 0.7 Est GFR (CKD-EPI)AfAm 105.38 Est GFR (CKD-EPI)NonAf 90.92 Random Glucose 72 L Calcium 9.2 Total Bilirubin 0.3 AST 19 ALT 17 Alkaline Phosphatase 67 Creatine Kinase 122 Troponin I < 0.02 Total Protein 7.2 Albumin 3.4 Urine Color Yellow Urine Appearance Clear Urine pH 7.0 D Ur Specific [place] 1.013 Urine Protein Negative Urine Glucose (UA) Negative Urine Ketones Negative Urine Blood Negative Urine Nitrite Negative Urine Bilirubin Negative Urine Urobilinogen 0.2 Ur Leukocyte Esterase Negative ASSESSMENT/PLAN: 64F w/ pmhx of dementia presented for altered mental status for 4 days. Sister was present at bedside uring initial evaluation. About 4 days pprior to admission, pt's sister found pt more lethargic, unable to get out of bed, less active that unusual, falling out of her chair and leaning to the left side while sitting. At baseline, pt is completely dependent when performing daily activities (getting out of bed, eating, using the bathroom, walking around the house). Additionally, pt spoke nonsensically, and followed few commands, but is able to swallow normally, and has a shuffling gait, but uses no assistive devices. She uses a diaper as well. Per sister, pt has been afebrile, no chills , n/v, chest pain, sob. Denied urinary/bowel symptoms, significant weight changes. Of note, pt was recently in [facility] with her family for 2 months and [place] the [place] still at baseline mental status. She takes Olanzapine and Donepezil for home meds. the patient was admitted for further evaluation and noncontrast head CT was completed without any acute changes. Chest x-ray and CT of abdomen and pelvis were also unremarkable. Urinalysis was negative and the white count on lab work. the sister did mention left-sided weakness that has been persistent but was nonspecific. I recommend having MRI of the brain to further evaluate. If workup negative I would consider progression of her underlying dementia as possible etiology. Can continue home dementia meds, consider psych evaluation. Maintain adequate hydration, frequent reorientation, monitor mental status.
--- NOTE | 2019-06-30 10:13 | CONSULT ---
Admitting History and Physical - Admission History of Present Illness: Per EMR- 64F w/ pmhx of dementia presents in the ED for altered mental status for 4 days. Sister is present at bedside. About 4 days ago, pt's sister found pt more lethargic, unable to get out of bed, less active that unusual, falling out of her chair and leaning to the left side while sitting. At baseline, pt is completely dependent when performing daily activities (getting out of bed, eating, using the bathroom, walking around the house). Additionally, pt speaks nonsensically, and follows few commands, but is able to swallow normally, and has a shuffling gait, but uses no assistive devices. She uses a diaper as well. Per sister, pt has been afebrile, no chills, n/v, chest pain, sob. Denies urinary/bowel symptoms, significant weight changes. Of note, pt was recently in [facility] with her family for 2 months and [place] the [place] mid[place] still at baseline mental status. She takes Olanzapine and Donepezil for home meds. ER course was notable for: (1) Head CT, CXR, and CTAP all unremarkable. U/A neg, vitals stable. (2) Neuro consulted; brain MRI ordered Selected Entries 06/29/19 06/30/19 06/30/19 18:22 01:46 06:48 Temperature 97.8 F 97.6 F 97.3 F L Evaluated on stretcher in ED. Pt's neice was present, able to sit her up with good sitting balance. Bilateral stiffness in upper extremities, unintelligible dysfluent speech, follows simple Angolan 1 stage commands intermittently paired with gesture. Per her neice, pt recently started drooling and they started giving her yogurt and soup, rice pooling in cheek with inability to chew/swallow. 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 - Past Surgical History Past Surgical History: Yes: None - Smoking History Smoking history: Never smoked Have you smoked in the past 12 months: No - Alcohol/Substance Use Hx Alcohol Use: No - Social History ADL: Family Assistance History of Recent Travel: No History - Admission Reason For Visit: AMS - Diagnostics X-ray: Report Reviewed CT Scan: Report Reviewed - General Mental Status: Awake and Alert, Confused, Flat Affect Attention: Mild Impairment Ability to Follow Directions: Poor (follows simple Angolan 1 stage commands intermittently paired with gesture.) Head/Neck Control: Good - Hearing Hearing: Functional Speech Evaluation - Communication Primary Language: KOSOV[place] Communication: Yes: Aphasia (jargon, occasional dysfluent word produced, deterioration over time sec to dementia. Pt's neice denies h/o stroke or sudden onset) - Speech Production Apraxia: Yes Able to Make Needs Known: Yes: Severely Impaired Intelligibility: Yes: Severely Impaired - Speech Characteristics Voice Loudness: Moderately Soft/Quiet Voice Phonatory-based Quality: Yes: Dysphonia Speech Pattern: Impaired Speech Clarity: < 25% Articulation: Yes: Imprecise Dysfluency: Yes: Clonic - Language/Auditory Comprehension Observation: Able to respond to yes/no queries: No, Yes/No Confusion: Yes, Comprehends Conversational Speech: Yes (maybe social speech/simple with gesture) - Language/Verbal Expression Aphasia: Yes: Impaired Repetition Able to Respond to Simple Queries: Yes: Severely Impaired Able to Communicate Wants and Needs: Yes: Severely Impaired Functional Communication Status: Yes: Severely Impaired - Memory/Perception watermaster Memory: Yes: Severely Impaired Short Term Memory: Yes: Severely Impaired - Swallow Evaluation/Bedside Assessment Current Nutritional Intake: NPO Oral Secretions: Yes: Drooling (intermittent due to delayed swallow onset) Facial Symmetry at Rest: Facial Droop Right Jaw Position: Closed at Rest Lingual Movement: Unable to Perform Laryngeal Movement: Labored,delay initiation Rate of Intake: Slow/Holding Bolus Size: Small Labial Seal: WFL Oral Prep Time: Increased Timing of Swallow: Delayed Coughing/Throat Clear: No Change in Voice: No Recommendations - Speech Evaluation, Impression/Plan Impression: Pt with Dementia with impaired cognition and language function. With encouragement and modeling, pt able to open her mouth slightly and accept puree. Pt was best able to accept liquids, drinking OJ from a cup continuously with good intake and no cough response. - Disposition Discharge to: To be Determined - Dysphagia Impressions/Plan Swallowing Skills: Impaired Dysphagia Impressions: Moderate Impairment, Risk of Aspiration *Silent aspiration: cannot be R/O at bedside Dysphagia Treatment Plan: Small Bites, Chin Tuck/Down, Clear Pocket Food, Trial Feedings, 1/2 tsp. at a time, Elevate HOB during feed Recommendations: Modified Barium Swallow (if cough, congestion, fever) - Recommendations Diet Consistency: Dysphagia Pureed (if difficulty accepting, mix puree with liquid to drink eg hot cereal in milk with sugar.) Medication Administration: Crushed with applesauce Liquids: Thin Liquids Supplement: Ensure (vanilla)
[2019-06-30 12:38] LABS: BASO % 0.8 % (0-2.0); EOS % 1.5 % (0-4.5); HEMATOCRIT 37.4 % (32.4-45.2); LYMPH % 26.7 % (8-40); MCH 27.5 pg (25.7-33.7); MCHC 32.1 g/dl (32.0-36.0); MEAN CELL VOLUME 85.6 fl (80-96); MEAN PLT VOLUME 8.3 fl (7.5-11.1); MONO % 7.8 % (3.8-10.2); NEUT % 63.2 % (42.8-82.8); PLATELET COUNT 288 K/MM3 (134-434); RBC 4.36 M/mm3 (3.60-5.2); RDW 13.9 % (11.6-15.6); WHITE BLOOD COUNT 9.6 K/mm3 (4.0-10.0)
[2019-06-30 13:20] LABS: BLOOD UREA NITROGEN 14.9 mg/dL (7-18); CALCIUM 9.2 mg/dL (8.5-10.1); CREATININE 0.7 mg/dL (0.55-1.3); POTASSIUM 4.1 mmol/L (3.5-5.1)
--- NOTE | 2019-06-30 13:35 | EKG ---
Test Reason : Blood Pressure : / mmHG Vent. Rate : 065 BPM Atrial Rate : 065 BPM P-R Int : 126 ms QRS Dur : 084 ms QT Int : 410 ms P-R-T Axes : 054 041 041 degrees QTc Int : 426 ms NORMAL SINUS RHYTHM NORMAL ECG WHEN COMPARED WITH ECG OF 20-JAN-2019 16:41, VENT. RATE HAS DECREASED BY 32 BPM Confirmed by DUKE ESTRADA MD ([id number]) on 06/30/2019 1:35:19 PM Referred By: Confirmed By:DUKE ESTRADA MD
--- NOTE | 2019-06-30 14:37 | ECHO ---
Name: BELJIM NICKERSON ROMÁN Exam:Adult Echocardiogram Study Date: 06/30/2019 11:08 AM Age: 64 yrs Reason For Study: ams Height: 62 in Weight: 130 lb BSA: 1.6 m2 MMode/2D Measurements & Calculations IVSd: 0.76 cm Ao root diam: 2.4 cm LVIDd: 3.3 cm LA dimension: 2.7 cm LVIDs: 2.2 cm LVPWd: 0.80 cm LVPWs: 1.1 cm EDV(Teich): 43.9 ml ESV(Teich): 16.3 ml LVOT diam: 1.7 cm LAV (MOD-bp): 29.0 ml Doppler Measurements & Calculations MV E max dru: 69.1 cm/sec Ao V2 max: 125.4 cm/sec MV A max dru: 91.3 cm/sec Ao max P.3 mmHg MV E/A: 0.76 MV dec time: 0.20 sec RAMONE(V,D): 1.7 cm2 LV V1 max P.0 mmHg TR max dru: 232.4 cm/sec LV V1 max: 99.7 cm/sec TR max P.6 mmHg PA V2 max: 121.5 cm/sec Med Peak E' Dru: 6.1 cm/sec PA max P.9 mmHg Med E/e': 11.3 Lat Peak E' Dru: 7.1 cm/sec Lat E/e': 9.7 Procedure A complete two-dimensional transthoracic echocardiogram was performed (2D, M-mode, Doppler and color flow Doppler). Left Ventricle The left ventricular size, thickness and function are normal. The left ventricular ejection fraction is normal. Ejection Fraction = 60-65%. The left ventricular wall motion is normal. Right Ventricle The right ventricle is normal in size and function. Atria Normal left and right atrial size and function. Mitral Valve There is no mitral regurgitation noted. Tricuspid Valve There is trace tricuspid regurgitation. There was insufficient TR detected to calculate RV systolic p ressure. Aortic Valve No hemodynamically significant valvular aortic stenosis. No aortic regurgitation is present. Pulmonic Valve There is no pulmonic valvular regurgitation. Great Vessels The aortic root is normal size. Pericardium/Pleura There is no pericardial effusion. Interpretation Summary The left ventricular size, thickness and function are normal The right ventricle is normal in size and function. There is trace tricuspid regurgitation. MD Jose Aranda 06/30/2019 02:37 PM
--- NOTE | 2019-06-30 16:52 | PN ---
Teaching Attending Note Name of Resident: Azalea Chandler ATTENDING PHYSICIAN STATEMENT I saw and evaluated the patient. I reviewed the resident's note and discussed the case with the resident. I agree with the resident's findings and plan as documented. SUBJECTIVE: Unable to provide history. Mumbles incomprehensible words. OBJECTIVE: Afebrile, Borderline BP. Confused. Comfortable. Last Vital Signs Temp Pulse Resp BP Pulse Ox 98.4 F 85 18 90/60 100 06/30/19 10:00 06/30/19 14:35 06/30/19 14:35 06/30/19 14:35 06/30/19 14:35 HEENT - Atraumatic, Normocephalic Heart - S1, S2, soft SM Lungs - clear to auscultation Abdomen - Soft, non-tender. Bowel Sounds normal. neuro - Disoriented x 3. Moves all extremities. Appears to have mild contracture LUE Laboratory Results - last 24 hr 06/29/19 06/29/19 06/29/19 20:00 20:00 20:28 WBC 9.7 RBC 4.56 Hgb 12.6 Hct 39.5 MCV 86.7 MCH 27.6 MCHC 31.8 L RDW 13.7 Plt Count 310 MPV 8.4 Absolute Neuts (auto) 5.0 Neutrophils % 51.0 Lymphocytes % 36.8 Monocytes % 10.0 Eosinophils % 1.4 D Basophils % 0.8 Nucleated RBC % 0 Sodium 141 Potassium 4.4 Chloride 107 Carbon Dioxide 28 Anion Gap 6 L BUN 13.2 Creatinine 0.7 Est GFR (CKD-EPI)AfAm 105.38 Est GFR (CKD-EPI)NonAf 90.92 Random Glucose 72 L Calcium 9.2 Total Bilirubin 0.3 AST 19 ALT 17 Alkaline Phosphatase 67 Creatine Kinase 122 Troponin I < 0.02 Total Protein 7.2 Albumin 3.4 Triglycerides Cholesterol Total LDL Cholesterol HDL Cholesterol Urine Color Yellow Urine Appearance Clear Urine pH 7.0 D Ur Specific [place] 1.013 Urine Protein Negative Urine Glucose (UA) Negative Urine Ketones Negative Urine Blood Negative Urine Nitrite Negative Urine Bilirubin Negative Urine Urobilinogen 0.2 Ur Leukocyte Esterase Negative 06/30/19 06/30/19 12:22 12:22 WBC 9.6 RBC 4.36 Hgb 12.0 Hct 37.4 MCV 85.6 MCH 27.5 MCHC 32.1 RDW 13.9 Plt Count 288 MPV 8.3 Absolute Neuts (auto) 6.1 Neutrophils % 63.2 D Lymphocytes % 26.7 D Monocytes % 7.8 Eosinophils % 1.5 Basophils % 0.8 Nucleated RBC % 0 Sodium 141 Potassium 4.1 Chloride 110 H Carbon Dioxide 25 Anion Gap 6 L BUN 14.9 Creatinine 0.7 Est GFR (CKD-EPI)AfAm 105.38 Est GFR (CKD-EPI)NonAf 90.92 Random Glucose 85 Calcium 9.2 Total Bilirubin AST ALT Alkaline Phosphatase Creatine Kinase Troponin I Total Protein Albumin Triglycerides 153 H Cholesterol 199 Total LDL Cholesterol 121 H HDL Cholesterol 50 Urine Color Urine Appearance Urine pH Ur Specific [place] Urine Protein Urine Glucose (UA) Urine Ketones Urine Blood Urine Nitrite Urine Bilirubin Urine Urobilinogen Ur Leukocyte Esterase Current Medications Generic Name Dose Route Start Last Admin Trade Name Freq PRN Reason Stop Dose Admin Aspirin 81 mg 06/30/19 10:00 06/30/19 09:57 Ecotrin - PO 81 mg DAILY MELISA Administration Atorvastatin Calcium 80 mg 06/30/19 22:00 Lipitor - PO HS MELISA Donepezil HCl 10 mg 06/30/19 10:00 06/30/19 09:57 Aricept - PO 10 mg DAILY MELISA Administration Enoxaparin Sodium 40 mg 06/30/19 10:00 06/30/19 09:20 Lovenox - SQ 40 mg DAILY MELISA Administration Sodium Chloride 1,000 mls @ 50 mls/hr 06/30/19 15:30 Normal Saline - IV 07/01/19 15:24 ASDIR MELISA Multivitamins/Minerals/Vitamin C 1 tab 06/30/19 10:00 06/30/19 09:57 Tab-A-Vit - PO 1 tab DAILY MELISA Administration Olanzapine 2.5 mg 06/30/19 10:00 06/30/19 09:57 Zyprexa - PO 2.5 mg BID MELISA Administration Home Medications Medication Instructions Recorded Donepezil HCl [Aricept] 10 mg PO DAILY 08/16/18 Multivitamin [One-Daily 1 each PO DAILY 06/30/19 Multi-Vitamin] Olanzapine 2.5 mg PO BID 06/30/19 ASSESSMENT AND PLAN: 64 year old female with history of advanced Dementia, completely dependent for ADLs, mobilizes independently with shuffling gait, brought to ED by her sister who reports 3-4 day deterioration in mental status, with increasing lethargy, weakness, anorexia, inability to stand, leaning to left side. 1. Acute Encephalopathy atop baseline Dementia No focal neurological deficits discernible but will need to exclude CVA CT Head - no acute intra-cranial findings. MRI/MRA Brain requested as per neurology Carotid Duplex - no hemodynamicaly significant stenosis Echo - normal LV function Speech evaluated - for pureed diet with thin liquids, meds crushed in apple sauce, ensure supplementation. Fasting lipid profile and PT eval requested. Further Ix/Rx as per Neuro Urine Cx pending. TSH, B12, RPR requested. 2. Early onset Dementia - advanced at baseline, completely dependent for ADLs. Continue Donepezil and Olanzapine. DVT Px - Lovenox SQ
[2019-06-30] MEDS ORDERED: LORazepam 2 MG/ML SDV VIAL IVPUSH ONE (18:16)
[2019-06-30] MEDS ORDERED: ATORVASTATIN CA 80 MG TABLET (FP) PO SCH (22:00)
[2019-06-30] MEDS ORDERED: ATORVASTATIN CA 40 MG TABLET (FP) PO SCH (22:00)
[2019-07-01 06:23] VITALS: BMI 23.5
[2019-07-01 08:07] LABS: HEMATOCRIT 36.3 % (32.4-45.2); HEMOGLOBIN 11.6 GM/dL (10.7-15.3); MCH 27.3 pg (25.7-33.7); MEAN CELL VOLUME 85.5 fl (80-96); MEAN PLT VOLUME 8.4 fl (7.5-11.1); PLATELET COUNT 279 K/MM3 (134-434); RBC 4.24 M/mm3 (3.60-5.2); RDW 13.6 % (11.6-15.6); WHITE BLOOD COUNT 6.7 K/mm3 (4.0-10.0)
[2019-07-01 08:42] LABS: ALBUMIN 2.9 g/dl (3.4-5.0); BILIRUBIN,TOTAL 0.5 mg/dL (0.2-1); BLOOD UREA NITROGEN 11.4 mg/dL (7-18); CALCIUM 8.5 mg/dL (8.5-10.1); CREATININE 0.7 mg/dL (0.55-1.3); MAGNESIUM 2.3 mg/dL (1.8-2.4); POTASSIUM 4.2 mmol/L (3.5-5.1); TOT PROT 6.1 g/dl (6.4-8.2)
--- NOTE | 2019-07-01 08:45 | PN ---
Progress Note (short form) - Note Progress Note: Neurology CHIEF COMPLAINT: AMS HISTORY OF PRESENT ILLNESS: 64F w/ pmhx of dementia presented for altered mental status for 4 days. Sister was present at bedside uring initial evaluation. About 4 days pprior to admission, pt's sister found pt more lethargic, unable to get out of bed, less active that unusual, falling out of her chair and leaning to the left side while sitting. At baseline, pt is completely dependent when performing daily activities (getting out of bed, eating, using the bathroom, walking around the house). Additionally, pt spoke nonsensically, and followed few commands, but is able to swallow normally, and has a shuffling gait, but uses no assistive devices. She uses a diaper as well. Per sister, pt has been afebrile, no chills , n/v, chest pain, sob. Denied urinary/bowel symptoms, significant weight changes. Of note, pt was recently in [facility] with her family for 2 months and arrived in the [place] mid[place]May still at baseline mental status. She takes Olanzapine and Donepezil for home meds. the patient was admitted for further evaluation and noncontrast head CT was completed without any acute changes. Chest x-ray and CT of abdomen and pelvis were also unremarkable. Urinalysis was negative and the white count on lab work. The sister did mention left-sided weakness that has been persistent but was nonspecific. Informed them of results of MRI brain which did not show acute changes. Although, did not have full sequences, DWI was done which allows us to determine if acute infarct and was negative. Carotid Doppler without hemodynamically significant stenosis. Echo with normal LV and RV size and function. Discussed possibly rehab for patient though sister was reluctant and will consider further. Allergies No Known Allergies Allergy (Verified 06/29/19 18:22) Active Medications Aspirin (Ecotrin -) 81 mg PO DAILY [facility] Last Admin: 06/30/19 09:57 Dose: 81 mg Atorvastatin Calcium (Lipitor -) 80 mg PO HS [facility] Last Admin: 06/30/19 21:51 Dose: 80 mg Cyanocobalamin (Vitamin B12 -) 1,000 mcg PO DAILY [facility] Donepezil HCl (Aricept -) 10 mg PO DAILY [facility] Last Admin: 06/30/19 09:57 Dose: 10 mg Enoxaparin Sodium (Lovenox -) 40 mg SQ DAILY [facility] Last Admin: 06/30/19 09:20 Dose: 40 mg Sodium Chloride (Normal Saline -) 1,000 mls @ 50 mls/hr IV ASDIR MELISA Stop: 07/01/19 15:24 Last Admin: 06/30/19 17:05 Dose: 50 mls/hr Influenza Virus Vaccine Quadrival (Flulaval Quad [id number]) 60 mcg IM .ONCE ONE Stop: 07/01/19 10:01 Lorazepam (Ativan Injection -) 0.5 mg IVPUSH ONCE ONE Stop: 06/30/19 18:17 Multivitamins/Minerals/Vitamin C (Tab-A-Vit -) 1 tab PO DAILY [facility] Last Admin: 06/30/19 09:57 Dose: 1 tab Olanzapine (Zyprexa -) 2.5 mg PO BID [facility] Last Admin: 06/30/19 21:51 Dose: 2.5 mg Pneumococcal 13-Valent Conj Vacc (Prevnar 13 Syringe -) 0.5 ml IM .ONCE ONE Stop: 07/01/19 10:01 PHYSICAL EXAMINATION Vital Signs Period Temp Pulse Resp BP Sys/Ramos Pulse Ox Last 24 Hr 97.7 F-98.7 F 53-85 12-20 70-156/37-68 97-100 GENERAL: Awake. Non-toxic appearing female. NAD. Demented. Speaks nonsensically. HEENT: AT/NC. EOMI. Dry mucus membranes. NECK: Normal range of motion, supple without lymphadenopathy, JVD, or masses. LUNGS: CTA B/L. No wheezes, rhonchi, rales noted. Symmetric chest rise. HEART: RRR. Normal S1, S2. No murmurs noted. ABDOMEN: Soft, NT/ND. Normoactive bowel sounds. No masses noted. MUSCULOSKELETAL: Stiff when moving extremities during passive ROM. No bony deformities or tenderness. No CVA tenderness. EXTREMITIES: 2+ dorsalis pedis pulses. No peripheral edema noted. NEUROLOGICAL: Slight R sided droop noted on lip. Nonsensical speech. Does not follow commands. Unable to complete full neuro exam but with slightly reduced strength on left upper and lower extremities. SKIN: Warm, dry, normal turgor, no rashes or lesions noted, normal capillary refill. CBCD WBC 6.7 K/mm3 (4.0-10.0) 07/01/19 07:38 RBC 4.24 M/mm3 (3.60-5.2) 07/01/19 07:38 Hgb 11.6 GM/dL (10.7-15.3) 07/01/19 07:38 Hct 36.3 % (32.4-45.2) 07/01/19 07:38 MCV 85.5 fl (80-96) 07/01/19 07:38 MCHC 32.0 g/dl (32.0-36.0) 07/01/19 07:38 RDW 13.6 % (11.6-15.6) 07/01/19 07:38 Plt Count 279 K/MM3 (134-434) 07/01/19 07:38 MPV 8.4 fl (7.5-11.1) 07/01/19 07:38 CMP Sodium 144 mmol/L (136-145) 07/01/19 07:38 Potassium 4.2 mmol/L (3.5-5.1) 07/01/19 07:38 Chloride 113 mmol/L (98-107) H 07/01/19 07:38 Carbon Dioxide 25 mmol/L (21-32) 07/01/19 07:38 Anion Gap 6 MMOL/L (8-16) L 07/01/19 07:38 BUN 11.4 mg/dL (7-18) 07/01/19 07:38 Creatinine 0.7 mg/dL (0.55-1.3) 07/01/19 07:38 Random Glucose 90 mg/dL (74-106) 07/01/19 07:38 Calcium 8.5 mg/dL (8.5-10.1) 07/01/19 07:38 Total Bilirubin 0.5 mg/dL (0.2-1) 07/01/19 07:38 AST 13 U/L (15-37) L 07/01/19 07:38 ALT 12 U/L (13-61) L 07/01/19 07:38 Alkaline Phosphatase 58 U/L (45-117) 07/01/19 07:38 Total Protein 6.1 g/dl (6.4-8.2) L 07/01/19 07:38 Albumin 2.9 g/dl (3.4-5.0) L 07/01/19 07:38 CARDIAC ENZYMES Creatine Kinase 122 U/L (26-192) 06/29/19 20:00 Troponin I < 0.02 ng/ml (0.00-0.05) 06/29/19 20:00 ASSESSMENT/PLAN: 64F w/ pmhx of dementia presented for altered mental status for 4 days. Sister was present at bedside uring initial evaluation. About 4 days pprior to admission, pt's sister found pt more lethargic, unable to get out of bed, less active that unusual, falling out of her chair and leaning to the left side while sitting. At baseline, pt is completely dependent when performing daily activities (getting out of bed, eating, using the bathroom, walking around the house). Additionally, pt spoke nonsensically, and followed few commands, but is able to swallow normally, and has a shuffling gait, but uses no assistive devices. She uses a diaper as well. Per sister, pt has been afebrile, no chills , n/v, chest pain, sob. Denied urinary/bowel symptoms, significant weight changes. Of note, pt was recently in [facility] with her family for 2 months and [place] the [place] mid[place] still at baseline mental status. She takes Olanzapine and Donepezil for home meds. the patient was admitted for further evaluation and noncontrast head CT was completed without any acute changes. Chest x-ray and CT of abdomen and pelvis were also unremarkable. Urinalysis was negative and the white count on lab work. the sister did mention left-sided weakness that has been persistent but was nonspecific. . Although, did not have full sequences, DWI was done which allows us to determine if acute infarct and was negative. Carotid Doppler without hemodynamically significant stenosis. Echo with normal LV and RV size and function. Discussed possibly rehab for patient though sister was reluctant and will consider further. Can continue home dementia meds, maintain adequate hydration, frequent reorientation , monitor mental status. Physical therapy as tolerated.
--- NOTE | 2019-07-01 09:22 | PN ---
Physical Exam: SUBJECTIVE: Patient seen and examined. No acute events overnight. Daughter at bedside, reports that pt slept well and was not agitated. OBJECTIVE: Vital Signs Period Temp Pulse Resp BP Sys/Ramos Pulse Ox Last 24 Hr 97.7 F-98.7 F 53-85 12-20 70-156/37-68 97-100 GENERAL: The patient is awake and alert. Severely demented, nonsensical speech. In no acute distress. HEAD: Normal with no signs of trauma. EYES: PERRL, extraocular movements intact, sclera anicteric, conjunctiva clear. No ptosis. ENT: Ears normal, nares patent, oropharynx clear without exudates, moist mucous membranes. NECK: Trachea midline, full range of motion, supple. LUNGS: Breath sounds equal, clear to auscultation bilaterally, no wheezes, no crackles, no accessory muscle use. HEART: Regular rate and rhythm, S1, S2 without murmur, rub or gallop. ABDOMEN: Soft, nontender, nondistended, normoactive bowel sounds, no guarding, no rebound, no hepatosplenomegaly, no masses. EXTREMITIES: 2+ pulses, warm, well-perfused, no edema. NEUROLOGICAL: Mild R sided droop on lip. Nonsensical speech and does not follow commands. Due to severe dementia, unable to complete neuro exam. Mild weakness on L noted. PSYCH: Normal mood, normal affect. SKIN: Warm, dry, normal turgor, no rashes or lesions noted Laboratory Results - last 24 hr CBC, BMP 07/01/19 07:38 07/01/19 07:38 Active Medications Aspirin (Ecotrin -) 81 mg PO DAILY [facility] Last Admin: 06/30/19 09:57 Dose: 81 mg Atorvastatin Calcium (Lipitor -) 80 mg PO HS [facility] Last Admin: 06/30/19 21:51 Dose: 80 mg Cyanocobalamin (Vitamin B12 -) 1,000 mcg PO DAILY [facility] Donepezil HCl (Aricept -) 10 mg PO DAILY [facility] Last Admin: 06/30/19 09:57 Dose: 10 mg Enoxaparin Sodium (Lovenox -) 40 mg SQ DAILY [facility] Last Admin: 06/30/19 09:20 Dose: 40 mg Sodium Chloride (Normal Saline -) 1,000 mls @ 50 mls/hr IV ASDIR [facility]EL[facility] Stop: 07/01/19 15:24 Last Admin: 06/30/19 17:05 Dose: 50 mls/hr Influenza Virus Vaccine Quadrival (Flulaval Quad [id number]) 60 mcg IM .ONCE ONE Stop: 07/01/19 10:01 Lorazepam (Ativan Injection -) 0.5 mg IVPUSH ONCE ONE Stop: 06/30/19 18:17 Multivitamins/Minerals/Vitamin C (Tab-A-Vit -) 1 tab PO DAILY [facility] Last Admin: 06/30/19 09:57 Dose: 1 tab Olanzapine (Zyprexa -) 2.5 mg PO BID [facility] Last Admin: 06/30/19 21:51 Dose: 2.5 mg Pneumococcal 13-Valent Conj Vacc (Prevnar 13 Syringe -) 0.5 ml IM .ONCE ONE Stop: 07/01/19 10:01 ASSESSMENT/PLAN: 64F w/PMH of dementia presents in the ED for altered mental status for 4 days. #Acute Metabolic Encephalopathy 2/[address] stroke vs worsening dementia CT head: no acute intracranial pathology Carotid doppler: no significant stenosis MRI: unable to complete due to patient agitation. Will repeat after giving 0.5mg ativan Echo: normal size and function Clinically, pt is non-toxic appearing with normal WBC, afebrile, CXR and U/A neg. Does not appear to have signs of infection attributing to AMS Neurology (Julio) consulted: if MRI neg, progression of underlying dementia is likely etiology. Consider psych eval S&S: dysphagia purre and thin liquids. Cannot r/o silent aspiration. Barium recommended if cough, congestion, or fever Lipid panel: triglycerides 153, LDL 121 B12: 292, supplementing with 1,000mcg daily PT evaluation HOB elevated, aspiration precautions, fall risk l Start ASA 81 QD, Lipitor 80 HS #Dementia Cont home meds: olanzapine 2.5mg BID, Donepezil 10mg qd #FEN IVF NS @ 50ml/hr Dysphagia puree #DVT ppx Lovenox SQ #Dispo Monitor on tele Visit type - Emergency Visit Emergency Visit: No - New Patient This patient is new to me today: No - Critical Care Critical Care patient: No ATTENDING PHYSICIAN STATEMENT I saw and evaluated the patient. I reviewed the resident's note and discussed the case with the resident. I agree with the resident's findings and plan as documented. SUBJECTIVE: OBJECTIVE: ASSESSMENT AND PLAN:
[2019-07-01] MEDS ORDERED: PT OWN MED DRAWER 7, Y5N ONE ×2 (09:49→19:03)
[2019-07-01] MEDS: ENOXAPARIN NA (PORCINE) 40 MG/0.4 ML DISP.SYRIN SQ SCH (09:50)
[2019-07-01] MEDS: OLANZapine 2.5 MG TABLET PO SCH (09:50)
[2019-07-01] MEDS: ASPIRIN COATED 81 MG TABLET.EC PO SCH (09:51)
[2019-07-01] MEDS: MULTIVITAMINS (DAILY MVI) TABLET (FP) PO SCH (09:51)
[2019-07-01] MEDS: DONEPEZIL HCL 5 MG TABLET (FP) PO SCH (09:51)
[2019-07-01] MEDS ORDERED: PNEUMOC 13-VAL CONJ-DIP CRM/PF 0.5 ML DISP.SYRIN IM ONE (10:00)
[2019-07-01] MEDS ORDERED: FLU VACCINE QUAD 60 MCG/0.5 ML (MDV 19-20) IM ONE (10:00)
[2019-07-01] MEDS ORDERED: CYANOCOBALAMIN 1,000 MCG TABLET (FP) PO SCH (10:00)
--- NOTE | 2019-07-01 12:11 | PN ---
Progress Note, BLOWER ROOM ATTENDANT - Note Progress Note: Selected Entries 07/01/19 07/01/19 07/01/19 02:39 06:00 10:00 Breakfast Temperature 98.7 F 97.7 F 98.4 F 07/01/19 10:05 Breakfast 75% Temperature Laboratory Tests 07/01/19 07:38 WBC 6.7 On pureed diet/thin liquids.Doing very well with 100% acceptance and no difficulty with tolerance
--- NOTE | 2019-07-01 12:58 | PN ---
Teaching Attending Note Name of Resident: Ade Roberts ATTENDING PHYSICIAN STATEMENT I saw and evaluated the patient. I reviewed the resident's note and discussed the case with the resident. I agree with the resident's findings and plan as documented. SUBJECTIVE: Unable to provide history. Mumbles incomprehensible words. OBJECTIVE: Afebrile, Borderline BP. Confused (pleasantly) and Comfortable. Last Vital Signs Temp Pulse Resp BP Pulse Ox 98.4 F 82 18 100/52 L 97 07/01/19 10:00 07/01/19 10:00 07/01/19 10:00 07/01/19 10:00 07/01/19 09:00 HEENT - Atraumatic, Normocephalic Heart - S1, S2, soft SM Lungs - clear to auscultation Abdomen - Soft, non-tender. Bowel Sounds normal. Neuro - Disoriented x 3. Moves all extremities. Laboratory Results - last 24 hr 06/30/19 06/30/19 07/01/19 12:22 18:14 07:38 WBC RBC Hgb Hct MCV MCH MCHC RDW Plt Count MPV Sodium 141 Potassium 4.1 Chloride 110 H Carbon Dioxide 25 Anion Gap 6 L BUN 14.9 Creatinine 0.7 Est GFR (CKD-EPI)AfAm 105.38 Est GFR (CKD-EPI)NonAf 90.92 Random Glucose 85 Calcium 9.2 Magnesium Total Bilirubin AST ALT Alkaline Phosphatase Total Protein Albumin Triglycerides 153 H Cholesterol 199 Total LDL Cholesterol 121 H HDL Cholesterol 50 Vitamin B12 292 TSH RPR Titer Nonreactive 07/01/19 07/01/19 07:38 07:38 WBC 6.7 RBC 4.24 Hgb 11.6 Hct 36.3 MCV 85.5 MCH 27.3 MCHC 32.0 RDW 13.6 Plt Count 279 MPV 8.4 Sodium 144 Potassium 4.2 Chloride 113 H Carbon Dioxide 25 Anion Gap 6 L BUN 11.4 Creatinine 0.7 Est GFR (CKD-EPI)AfAm 105.38 Est GFR (CKD-EPI)NonAf 90.92 Random Glucose 90 Calcium 8.5 Magnesium 2.3 Total Bilirubin 0.5 AST 13 L ALT 12 L Alkaline Phosphatase 58 Total Protein 6.1 L Albumin 2.9 L Triglycerides Cholesterol Total LDL Cholesterol HDL Cholesterol Vitamin B12 TSH 1.52 RPR Titer Current Medications Generic Name Dose Route Start Last Admin Trade Name Freq PRN Reason Stop Dose Admin Aspirin 81 mg 06/30/19 10:00 07/01/19 09:51 Ecotrin - PO 81 mg DAILY [facility] Administration Atorvastatin Calcium 80 mg 06/30/19 22:00 06/30/19 21:51 Lipitor - PO 80 mg HS [facility] Administration Cyanocobalamin 1,000 mcg 07/01/19 10:00 07/01/19 09:50 Vitamin B12 - PO 1,000 mcg DAILY [facility] Administration Donepezil HCl 10 mg 06/30/19 10:00 07/01/19 09:51 Aricept - PO 10 mg DAILY [facility] Administration Enoxaparin Sodium 40 mg 06/30/19 10:00 07/01/19 09:50 Lovenox - SQ 40 mg DAILY [facility] Administration Sodium Chloride 1,000 mls @ 50 mls/hr 06/30/19 15:30 06/30/19 17:05 Normal Saline - IV 07/01/19 15:24 50 mls/hr ASDIR [facility]ELISA Administration Lorazepam 0.5 mg 06/30/19 18:16 Ativan Injection - IVPUSH 06/30/19 18:17 ONCE ONE Multivitamins/Minerals/Vitamin C 1 tab 06/30/19 10:00 07/01/19 09:51 Tab-A-Vit - PO 1 tab DAILY [facility] Administration Olanzapine 2.5 mg 06/30/19 10:00 07/01/19 09:50 Zyprexa - PO 2.5 mg BID [facility] Administration Home Medications Medication Instructions Recorded Donepezil HCl [Aricept] 10 mg PO DAILY 08/16/18 Multivitamin [One-Daily 1 each PO DAILY 06/30/19 Multi-Vitamin] Olanzapine 2.5 mg PO BID 06/30/19 ASSESSMENT AND PLAN: 64 year old female with history of advanced Dementia, completely dependent for ADLs, mobilizes independently with shuffling gait, brought to ED by her sister who reports 3-4 day deterioration in mental status, with increasing lethargy, weakness, anorexia, inability to stand, leaning to left side. 1. Acute Encephalopathy atop baseline Dementia - likely worsening of Dementia. No focal neurological deficits discernible and acute CVA excluded. CT Head - no acute intra-cranial findings. MRI/MRA Brain requested - MRI brain unable to complete due to patient movement but DWI adequate enough to show no CVA as per Neuro Carotid Duplex - no hemodynamicaly significant stenosis Echo - normal LV function Speech evaluated - for pureed diet with thin liquids, meds crushed in apple sauce, Ensure supplementation. No further inpatient Ix/Rx as per Neuro Urine Cx negative TSH wnl RPR non-reactive B12 - borderline, will supplement. 2. Early onset Dementia - advanced dementia at baseline, completely dependent for ADLs. Continue Donepezil and Olanzapine. Family declines SNF. Wants to take her home. Medically and Neurologically stable and optimized for discharge.
--- NOTE | 2019-07-01 14:31 | DS ---
Physical Exam: SUBJECTIVE: Patient seen and examined. No acute events overnight. OBJECTIVE: Vital Signs Period Temp Pulse Resp BP Sys/Ramos Pulse Ox Last 24 Hr 97.7 F-98.7 F 53-85 16-20 90-156/52-68 97-100 PHYSICAL EXAM GENERAL: The patient is awake and alert. Severely demented, nonsensical speech. In no acute distress. HEAD: Normal with no signs of trauma. EYES: PERRL, extraocular movements intact, sclera anicteric, conjunctiva clear. No ptosis. ENT: Ears normal, nares patent, oropharynx clear without exudates, moist mucous membranes. NECK: Trachea midline, full range of motion, supple. LUNGS: Breath sounds equal, clear to auscultation bilaterally, no wheezes, no crackles, no accessory muscle use. HEART: Regular rate and rhythm, S1, S2 without murmur, rub or gallop. ABDOMEN: Soft, nontender, nondistended, normoactive bowel sounds, no guarding, no rebound, no hepatosplenomegaly, no masses. EXTREMITIES: 2+ pulses, warm, well-perfused, no edema. NEUROLOGICAL: Mild R sided droop on lip. Nonsensical speech and does not follow commands. Due to severe dementia, unable to complete neuro exam. Mild weakness on L noted. PSYCH: Normal mood, normal affect. SKIN: Warm, dry, normal turgor, no rashes or lesions noted LABS Laboratory Results - last 24 hr 06/30/19 07/01/19 07/01/19 18:14 07:38 07:38 WBC 6.7 RBC 4.24 Hgb 11.6 Hct 36.3 MCV 85.5 MCH 27.3 MCHC 32.0 RDW 13.6 Plt Count 279 MPV 8.4 Sodium Potassium Chloride Carbon Dioxide Anion Gap BUN Creatinine Est GFR (CKD-EPI)AfAm Est GFR (CKD-EPI)NonAf Random Glucose Calcium Magnesium Total Bilirubin AST ALT Alkaline Phosphatase Total Protein Albumin Vitamin B12 292 TSH RPR Titer Nonreactive 07/01/19 07:38 WBC RBC Hgb Hct MCV MCH MCHC RDW Plt Count MPV Sodium 144 Potassium 4.2 Chloride 113 H Carbon Dioxide 25 Anion Gap 6 L BUN 11.4 Creatinine 0.7 Est GFR (CKD-EPI)AfAm 105.38 Est GFR (CKD-EPI)NonAf 90.92 Random Glucose 90 Calcium 8.5 Magnesium 2.3 Total Bilirubin 0.5 AST 13 L ALT 12 L Alkaline Phosphatase 58 Total Protein 6.1 L Albumin 2.9 L Vitamin B12 TSH 1.52 RPR Titer HOSPITAL COURSE: Date of Admission:06/30/19 4F w/PMH of dementia presents in the ED for altered mental status for 4 days. She was admitted to rule out TIA. CT head and MRI were negative for any acute intracranial pathology. Echo was unremarkable and Carotid US showed no hemodynamically significant stenosis. Neurology (Dr. Kim) was consulted and suspects progression of underlying dementia as likely etiology. Patient's vitals are stable and she is at baseline and clinically stable to be discharged home. Her B12 levels were moderately low, so she will be discharged with a B12 supplement. Date of Discharge: 07/01/19 Minutes to complete discharge: 35 Discharge Summary Problems reviewed: Yes Reason For Visit: AMS Condition: Stable - Instructions Diet, Activity, Other Instructions: You were admitted to the hospital for weakness on your left side. You received a CT of your head, an MRI of your brain, and an ultrasound of your heart and arteries. These tests did not show any signs of active disease. A neurologist, Dr. Kim, examined you and is not concerned for any active disease. While you were here, your vitamin B12 levels were found to be low. You should start taking a B12 supplement (one pill) daily. We provided you with a prescription. Please follow up with your primary care provider within 1 week. Please follow up with the neurologist, Dr. Kim, in 1 week. We provided you with a referral. You should resume all home medications as prescribed. Return to the emergency department if you experience any weakness, slurring of speech, changes in mental status, or any other symptoms. Referrals: Ziggy Sharma [Non Staff, Medical] - Rohan Kim MD [Staff Physician] - Disposition: HOME - Home Medications Comprehensive Discharge Medication List: Ambulatory Orders Donepezil HCl [Aricept] 10 mg PO DAILY 08/16/18 Multivitamin [One-Daily Multi-Vitamin] 1 each PO DAILY 06/30/19 Olanzapine 2.5 mg PO BID 06/30/19 Cyanocobalamin [Vitamin B12 -] 1,000 mcg PO DAILY #30 tablet 07/01/19 This patient is new to me today: Yes Date on this admission: 07/01/19 Emergency Visit: No Critical Care patient: No - Discharge Referral Referred to [facility] Med P.C.: No ATTENDING PHYSICIAN STATEMENT I saw and evaluated the patient. I reviewed the resident's note and discussed the case with the resident. I agree with the resident's findings and plan as documented. SUBJECTIVE: OBJECTIVE: ASSESSMENT AND PLAN:
[2019-07-01 18:30] VITALS: BP 124/68; PULSE 74; TEMP 98.6
== END 2019-07-01 20:33 | disposition home or self-care (01) | DRG 56 ==
LOC: SUPCPDRO 17:50 → JER 17:50 → JERBED 06-30 00:13 → J4S 06-30 20:27
DX: G30.9 Alzheimer's disease, unspecified (principal); G93.41 Metabolic encephalopathy; F02.80 Dementia in other diseases classified elsewhere, unspecified severity, without behavioral disturbance, psychotic disturbance, mood disturbance, and anxiety
CPT/HCPCS: 36415; 70450-TC; 70551-TC; 71045-TC-FY; 74176-TC; 80048; 80053; 80061; 81003; 82550; 82607; 83721; 83735; 84443; 84484; 85025; 85027; 86593; 87086; 90670; 93005; 93010; 93306-TC; 93880-TC; 97116-GP; 97162-GP; 99285-25; G0008; G0009; J7030; Q2036

== ENCOUNTER 2022-02-04 09:50 | Inpatient (IN) | payer OTHER ==
[2022-02-04 11:41] LABS: BASO % 0.4 % (0-2.0); EOS % 1.3 % (0-4.5); HEMATOCRIT 41.6 % (32.4-45.2); HEMOGLOBIN 13.3 GM/dL (10.7-15.3); LYMPH % 21.4 % (8-40); MCH 26.8 pg (25.7-33.7); MEAN CELL VOLUME 83.6 fl (80-96); MEAN PLT VOLUME 9.3 fl (7.5-11.1); MONO % 7.6 % (3.8-10.2); NEUT % 69.3 % (42.8-82.8); PLATELET COUNT 292 10^3/uL (134-434); RBC 4.98 M/mm3 (3.60-5.2); RDW 14.1 % (11.6-15.6); VENOUS BASE EXCESS -1.2 mmol/L (-2-2); VENOUS O2 SATURATION 82.1 % (70-80); VENOUS PCO2 41.2 mmHg (38-52); VENOUS PH 7.381 (7.310-7.410)
[2022-02-04 12:04] LABS: BLOOD UREA NITROGEN 20.6 mg/dL (7-18); CALCIUM 9.4 mg/dL (8.5-10.1)
[2022-02-04 12:05] LABS: ALBUMIN 3.5 g/dl (3.4-5.0)
[2022-02-04 12:07] LABS: CREATININE 0.7 mg/dL (0.55-1.3)
[2022-02-04 12:09] LABS: BILIRUBIN,TOTAL 0.3 mg/dL (0.2-1); TOT PROT 7.4 g/dl (6.4-8.2)
[2022-02-04 12:21] LABS: LACTIC ACID 2.7 mmol/L (0.4-2.0)
[2022-02-04] MEDS ORDERED: SODIUM CHLORIDE 0.9% 500 ML INFUS.BAG IV ONE (16:53)
[2022-02-04] MEDS ORDERED: SODIUM CHLORIDE 1,000 ML IV SCH (17:00)
[2022-02-04 17:01] LABS: URINE APPEARANCE CLEAR; URINE BILIRUBIN NEGATIVE (NEGATIVE); URINE COLOR YELLOW; URINE GLUCOSE (UA) NEGATIVE (NEGATIVE); URINE KETONE NEGATIVE (NEGATIVE)
[2022-02-04 17:02] LABS: PH,URINE 5.5 (5.0-8.0); URINE LEUK ESTERASE NEGATIVE (NEGATIVE); URINE NITRITE NEGATIVE (NEGATIVE); URINE PROTEIN NEGATIVE (NEGATIVE); URINE UROBILINOGEN 0.2 mg/dL (0.2-1.0)
[2022-02-04] MEDS ORDERED: DEXTROSE 5%-0.45% SALINE 1,000 ML IV SCH (18:00)
[2022-02-04] MEDS ORDERED: methylPREDNISolone NA SUCC 40 MG/1 ML VIAL IVPUSH ONE (18:01)
[2022-02-04] MEDS ORDERED: methylPREDNISolone NA SUCC 40 MG/1 ML VIAL ONE (18:14)
[2022-02-04] MEDS ORDERED: levETIRAcetam 500 MG TABLET (FP) PO SCH (22:00)
[2022-02-04] MEDS ORDERED: levETIRAcetam 500 MG/5 ML INJECTION VIAL IVPB ONE (23:23)
[2022-02-05] MEDS: OLANZapine 5 MG TABLET PO SCH (09:41)
[2022-02-05] MEDS: levETIRAcetam 500 MG/5 ML INJECTION VIAL IVPB SCH ×2 (09:46→22:00)
[2022-02-05 13:23] LABS: BASO % 0.5 % (0-2.0); EOS % 0.2 % (0-4.5); HEMATOCRIT 40.5 % (32.4-45.2); HEMOGLOBIN 12.8 GM/dL (10.7-15.3); LYMPH % 23.1 % (8-40); MCH 26.7 pg (25.7-33.7); MCHC 31.6 g/dl (32.0-36.0); MEAN CELL VOLUME 84.5 fl (80-96); MEAN PLT VOLUME 9.2 fl (7.5-11.1); MONO % 7.1 % (3.8-10.2); NEUT % 69.1 % (42.8-82.8); PLATELET COUNT 243 10^3/uL (134-434); RBC 4.79 M/mm3 (3.60-5.2); RDW 13.9 % (11.6-15.6); WHITE BLOOD COUNT 14.1 K/mm3 (4.0-10.0)
[2022-02-05 13:46] LABS: ALBUMIN 3.5 g/dl (3.4-5.0); CALCIUM 9.5 mg/dL (8.5-10.1)
[2022-02-05 13:47] LABS: BLOOD UREA NITROGEN 16.6 mg/dL (7-18); MAGNESIUM 2.5 mg/dL (1.8-2.4)
[2022-02-05 13:49] LABS: CREATININE 0.6 mg/dL (0.55-1.3); PHOSPHOROUS 3.5 mg/dL (2.5-4.9)
[2022-02-05 13:51] LABS: BILIRUBIN,TOTAL 0.5 mg/dL (0.2-1); TOT PROT 7.4 g/dl (6.4-8.2)
[2022-02-05] MEDS ORDERED: SODIUM CHLORIDE 100 ML IVPB ONE ×2 (15:49→21:32)
[2022-02-05] MEDS ORDERED: AMPICILLIN NA/SULBACTAM NA 1.5 GM VIAL ONE ×2 (15:49→21:31)
[2022-02-05] MEDS: DEXTROSE 5%-0.45% SALINE 1,000 ML IV SCH (15:54)
[2022-02-05] MEDS: AMPICILLIN NA/SULBACTAM NA 1.5 GM in SODIUM CHLORIDE 100 ML IVPB SCH ×2 (15:54→22:01)
[2022-02-05] MEDS: ENOXAPARIN NA (PORCINE) 40 MG/0.4 ML DISP.SYRIN SQ SCH (16:39)
[2022-02-06] MEDS ORDERED: MELATONIN 5 MG TABLETS PO ONE (02:20)
[2022-02-06] MEDS ORDERED: SODIUM CHLORIDE 100 ML IVPB ONE ×4 (02:45→21:50)
[2022-02-06] MEDS ORDERED: AMPICILLIN NA/SULBACTAM NA 1.5 GM VIAL ONE ×4 (02:45→21:50)
[2022-02-06] MEDS: AMPICILLIN NA/SULBACTAM NA 1.5 GM in SODIUM CHLORIDE 100 ML IVPB SCH ×4 (02:54→22:21)
[2022-02-06] MEDS: DEXTROSE 5%-0.45% SALINE 1,000 ML IV SCH ×2 (05:36→22:20)
[2022-02-06] MEDS: ENOXAPARIN NA (PORCINE) 40 MG/0.4 ML DISP.SYRIN SQ SCH (10:31)
[2022-02-06] MEDS: OLANZapine 5 MG TABLET PO SCH (10:31)
[2022-02-06] MEDS: levETIRAcetam 500 MG/5 ML INJECTION VIAL IVPB SCH ×2 (10:31→22:20)
[2022-02-06 13:03] LABS: BASO % 0.3 % (0-2.0); EOS % 2.1 % (0-4.5); HEMATOCRIT 33.1 % (32.4-45.2); LYMPH % 33.8 % (8-40); MCH 27.7 pg (25.7-33.7); MCHC 33.2 g/dl (32.0-36.0); MEAN CELL VOLUME 83.6 fl (80-96); MEAN PLT VOLUME 8.5 fl (7.5-11.1); MONO % 9.5 % (3.8-10.2); NEUT % 54.3 % (42.8-82.8); PLATELET COUNT 226 10^3/uL (134-434); RBC 3.96 M/mm3 (3.60-5.2); RDW 13.9 % (11.6-15.6)
[2022-02-06 13:38] LABS: CALCIUM 8.8 mg/dL (8.5-10.1)
[2022-02-06 13:41] LABS: CREATININE 0.7 mg/dL (0.55-1.3)
[2022-02-06 16:15] VITALS: BMI 20.6
[2022-02-07] MEDS ORDERED: AMPICILLIN NA/SULBACTAM NA 1.5 GM VIAL ONE ×4 (01:13→21:44)
[2022-02-07] MEDS ORDERED: SODIUM CHLORIDE 100 ML IVPB ONE ×4 (01:13→21:44)
[2022-02-07] MEDS: AMPICILLIN NA/SULBACTAM NA 1.5 GM in SODIUM CHLORIDE 100 ML IVPB SCH ×4 (02:50→22:40)
[2022-02-07 09:24] LABS: BASO % 0.4 % (0-2.0); EOS % 2.9 % (0-4.5); HEMATOCRIT 36.9 % (32.4-45.2); LYMPH % 34.7 % (8-40); MCH 27.3 pg (25.7-33.7); MCHC 32.7 g/dl (32.0-36.0); MEAN CELL VOLUME 83.4 fl (80-96); MEAN PLT VOLUME 9.2 fl (7.5-11.1); MONO % 9.9 % (3.8-10.2); NEUT % 52.1 % (42.8-82.8); PLATELET COUNT 234 10^3/uL (134-434); RBC 4.42 M/mm3 (3.60-5.2); RDW 13.9 % (11.6-15.6); WHITE BLOOD COUNT 8.6 K/mm3 (4.0-10.0)
[2022-02-07] MEDS: OLANZapine 5 MG TABLET PO SCH (09:37)
[2022-02-07] MEDS: levETIRAcetam 500 MG/5 ML INJECTION VIAL IVPB SCH ×2 (09:37→22:00)
[2022-02-07] MEDS: ENOXAPARIN NA (PORCINE) 40 MG/0.4 ML DISP.SYRIN SQ SCH (09:37)
[2022-02-07 09:51] LABS: CALCIUM 8.8 mg/dL (8.5-10.1)
[2022-02-07 09:52] LABS: ALBUMIN 3.1 g/dl (3.4-5.0); BLOOD UREA NITROGEN 11.9 mg/dL (7-18)
[2022-02-07 09:54] LABS: CREATININE 0.6 mg/dL (0.55-1.3)
[2022-02-07 09:56] LABS: BILIRUBIN,TOTAL 0.7 mg/dL (0.2-1); TOT PROT 6.5 g/dl (6.4-8.2)
[2022-02-07 15:24] VITALS: BP 113/61; PULSE 61; TEMP 98
[2022-02-07] MEDS: DEXTROSE 5%-0.45% SALINE 1,000 ML IV SCH (23:30)
== END 2022-02-07 23:45 | disposition home or self-care (01) | DRG 177 ==
LOC: JER 09:50 → JERBED 16:54 → J7W 23:32
PROVIDERS: ADMIT Internal Medicine; ATTEND Internal Medicine
DX: J69.0 Pneumonitis due to inhalation of food and vomit (principal); R53.2 Functional quadriplegia; G93.41 Metabolic encephalopathy; E87.2 Acidosis; G40.909 Epilepsy, unspecified, not intractable, without status epilepticus; R41.82 Altered mental status, unspecified; G30.9 Alzheimer's disease, unspecified; F02.80 Dementia in other diseases classified elsewhere, unspecified severity, without behavioral disturbance, psychotic disturbance, mood disturbance, and anxiety; Z74.01 Bed confinement status
CPT/HCPCS: 36415; 70450-TC; 71045-TC-FY; 71275-TC; 80048; 80053; 80177; 81003; 82550; 82553; 82607; 82746; 82803; 82962; 83605; 83735; 83880; 84100; 84439; 84443; 84484; 85025; 86780; 87086; 93005; 93010; 99285-25; C9803-CS; Q9967; U0003; U0005

== ENCOUNTER 2022-08-19 21:16 | Inpatient (IN) | payer OTHER ==
[2022-08-19 21:57] VITALS: BMI 24.5
[2022-08-19] MEDS ORDERED: SODIUM CHLORIDE 1,769 ML IV ONE (22:17)
[2022-08-19] MEDS ORDERED: ACETAMINOPHEN 1000 MG/100 ML BAG IVPB ONE (22:17)
[2022-08-19] MEDS ORDERED: SODIUM CHLORIDE 0.9% 500 ML INFUS.BAG IV ONE (22:25)
[2022-08-19] MEDS ORDERED: ACETAMINOPHEN INJECTION 100 ML IVPB ONE (22:50)
[2022-08-19 22:52] LABS: BASO % 0.2 % (0-2.0); EOS % 0.1 % (0-4.5); HEMATOCRIT 41.9 % (32.4-45.2); HEMOGLOBIN 13.3 GM/dL (10.7-15.3); LYMPH % 9.5 % (8-40); MCH 26.4 pg (25.7-33.7); MCHC 31.8 g/dl (32.0-36.0); MONO % 13.8 % (3.8-10.2); NEUT % 76.4 % (42.8-82.8); PLATELET COUNT 241 10^3/uL (134-434); RBC 5.05 M/mm3 (3.60-5.2); RDW 14.2 % (11.6-15.6); WHITE BLOOD COUNT 12.4 K/mm3 (4.0-10.0)
[2022-08-19 23:07] LABS: PH,URINE 5.5 (5.0-8.0); URINE APPEARANCE CLEAR; URINE BILIRUBIN NEGATIVE (NEGATIVE); URINE COLOR YELLOW; URINE GLUCOSE (UA) NEGATIVE (NEGATIVE); URINE KETONE TRACE (NEGATIVE); URINE LEUK ESTERASE NEGATIVE (NEGATIVE); URINE NITRITE NEGATIVE (NEGATIVE); URINE PROTEIN TRACE (NEGATIVE); URINE UROBILINOGEN 0.2 mg/dL (0.2-1.0)
[2022-08-19 23:15] LABS: VENOUS BASE EXCESS -0.5 mmol/L (-2-2); VENOUS O2 SATURATION 79.9 % (70-80); VENOUS PCO2 38.6 mmHg (38-52); VENOUS PH 7.41 (7.310-7.410)
[2022-08-19 23:16] LABS: CHLORIDE 103 mmol/L (98-107); SODIUM 137 mmol/L (136-145)
[2022-08-19 23:18] LABS: ALBUMIN 3.6 g/dl (3.4-5.0); CALCIUM 9.1 mg/dL (8.5-10.1); CO2 25 mmol/L (21-32); GLUCOSE,RANDOM 119 mg/dL (74-106)
[2022-08-19 23:21] LABS: CREATININE 1.1 mg/dL (0.55-1.3)
[2022-08-19 23:22] LABS: INR 1.12 (0.83-1.09); PROTHROMBIN TIME (PATIENT) 12.9 SEC (9.7-13.0); SGOT/AST 101 U/L (15-37)
[2022-08-19 23:23] LABS: BILIRUBIN,TOTAL 0.3 mg/dL (0.2-1); TOT PROT 8.6 g/dl (6.4-8.2)
[2022-08-19 23:24] LABS: ACTIVATED PTT 23.4 SECONDS (25.2-36.5)
[2022-08-19 23:25] LABS: ALK PHOS 66 U/L (45-117)
[2022-08-19 23:28] LABS: ANION GAP 9 MMOL/L (8-16); SGPT/ALT 25 U/L (13-61)
[2022-08-20] MEDS ORDERED: SODIUM CHLORIDE 0.9% 500 ML INFUS.BAG IV ONE (00:16)
[2022-08-20] MEDS ORDERED: DEXAMETHASONE SOD PHOSPHATE 4 MG/1 ML VIAL IVPUSH ONE (01:18)
[2022-08-20] MEDS ORDERED: REMDESIVIR 200 MG in SODIUM CHLORIDE 250 ML IVPB ONE ×2 (02:14→04:00)
[2022-08-20] MEDS ORDERED: DEXAMETHASONE SOD PHOSPHATE 10 MG/1 ML VIAL ONE ×2 (02:49→09:01)
[2022-08-20] MEDS ORDERED: CEFTRIAXONE 1 GM/50 ML BAG ONE (02:49)
[2022-08-20] MEDS ORDERED: AZITHROMYCIN IVPB 500 MG/250 ML BAG IVPB ONE (02:49)
[2022-08-20] MEDS: CEFTRIAXONE 1 GM in DEXTROSE 5%-WATER - 50 ML IVPB SCH (02:57)
[2022-08-20] MEDS ORDERED: DEXTROSE 5%-NORMAL SALINE 1,000 ML IV SCH (03:45)
[2022-08-20] MEDS: AZITHROMYCIN IVPB 500 MG/250 ML BAG IVPB SCH (03:50)
[2022-08-20] MEDS ORDERED: SODIUM CHLORIDE 1,000 ML IV STA (05:41)
[2022-08-20] MEDS: levETIRAcetam 500 MG/5 ML INJECTION VIAL IVPB SCH ×3 (06:00→22:33)
[2022-08-20] MEDS ORDERED: levETIRAcetam 500 MG TABLET (FP) PO SCH ×2 (06:07→10:00)
[2022-08-20 08:08] LABS: BASO % 0.3 % (0-2.0); HEMATOCRIT 39.6 % (32.4-45.2); HEMOGLOBIN 12.8 GM/dL (10.7-15.3); LYMPH % 17.1 % (8-40); MCH 27.4 pg (25.7-33.7); MCHC 32.2 g/dl (32.0-36.0); MEAN PLT VOLUME 8.6 fl (7.5-11.1); MONO % 5.2 % (3.8-10.2); NEUT % 77.4 % (42.8-82.8); PLATELET COUNT 215 10^3/uL (134-434); RBC 4.66 M/mm3 (3.60-5.2); RDW 14.2 % (11.6-15.6); WHITE BLOOD COUNT 8.8 K/mm3 (4.0-10.0)
[2022-08-20 08:21] LABS: CALCIUM 7.9 mg/dL (8.5-10.1)
[2022-08-20 08:22] LABS: BLOOD UREA NITROGEN 13.9 mg/dL (7-18); MAGNESIUM 2.2 mg/dL (1.8-2.4)
[2022-08-20 08:24] LABS: PHOSPHOROUS 3.4 mg/dL (2.5-4.9)
[2022-08-20 08:25] LABS: CREATININE 0.8 mg/dL (0.55-1.3)
[2022-08-20 08:26] LABS: BILIRUBIN,TOTAL 0.2 mg/dL (0.2-1)
[2022-08-20] MEDS ORDERED: ENOXAPARIN NA (PORCINE) 40 MG/0.4 ML DISP.SYRIN SQ ONE (09:01)
[2022-08-20] MEDS ORDERED: levETIRAcetam 500 MG/5 ML INJECTION VIAL IVPB ONE (09:01)
[2022-08-20] MEDS: ENOXAPARIN NA (PORCINE) 40 MG/0.4 ML DISP.SYRIN SQ SCH (09:16)
[2022-08-20] MEDS: OLANZapine 5 MG TABLET PO SCH (09:16)
[2022-08-20] MEDS: DEXAMETHASONE SOD PHOSPHATE 10 MG/1 ML VIAL IVPUSH SCH (09:16)
[2022-08-20] MEDS ORDERED: CEFTRIAXONE 1 GM in DEXTROSE 5%-WATER - 50 ML IVPB SCH (10:00)
[2022-08-21] MEDS: REMDESIVIR 100 MG in SODIUM CHLORIDE 250 ML IVPB SCH (03:16)
[2022-08-21] MEDS: levETIRAcetam 500 MG/5 ML INJECTION VIAL IVPB SCH ×2 (09:09→22:36)
[2022-08-21] MEDS: ENOXAPARIN NA (PORCINE) 40 MG/0.4 ML DISP.SYRIN SQ SCH (09:10)
[2022-08-21] MEDS: DEXAMETHASONE SOD PHOSPHATE 10 MG/1 ML VIAL IVPUSH SCH (09:10)
[2022-08-21] MEDS: OLANZapine 5 MG TABLET PO SCH (09:43)
[2022-08-21] MEDS: CEFTRIAXONE 1 GM in DEXTROSE 5%-WATER - 50 ML IVPB SCH (09:45)
[2022-08-21] MEDS: AZITHROMYCIN IVPB 500 MG/250 ML BAG IVPB SCH (10:33)
[2022-08-22] MEDS: REMDESIVIR 100 MG in SODIUM CHLORIDE 250 ML IVPB SCH (03:14)
[2022-08-22] MEDS: DEXAMETHASONE SOD PHOSPHATE 10 MG/1 ML VIAL IVPUSH SCH (09:58)
[2022-08-22] MEDS: CEFTRIAXONE 1 GM in DEXTROSE 5%-WATER - 50 ML IVPB SCH (09:59)
[2022-08-22] MEDS: levETIRAcetam 500 MG/5 ML INJECTION VIAL IVPB SCH ×2 (09:59→21:29)
[2022-08-22] MEDS: ENOXAPARIN NA (PORCINE) 40 MG/0.4 ML DISP.SYRIN SQ SCH (09:59)
[2022-08-22] MEDS: OLANZapine 5 MG TABLET PO SCH (10:00)
[2022-08-22] MEDS: AZITHROMYCIN IVPB 500 MG/250 ML BAG IVPB SCH (10:00)
[2022-08-22 10:53] LABS: BASO % 0.2 % (0-2.0); HEMATOCRIT 40.5 % (32.4-45.2); HEMOGLOBIN 12.8 GM/dL (10.7-15.3); LYMPH % 32.4 % (8-40); MCH 26.3 pg (25.7-33.7); MCHC 31.7 g/dl (32.0-36.0); MEAN PLT VOLUME 9.6 fl (7.5-11.1); MONO % 9.8 % (3.8-10.2); NEUT % 57.6 % (42.8-82.8); PLATELET COUNT 240 10^3/uL (134-434); RBC 4.88 M/mm3 (3.60-5.2); WHITE BLOOD COUNT 8.8 K/mm3 (4.0-10.0)
[2022-08-22 11:19] LABS: CHLORIDE 109 mmol/L (98-107); SODIUM 146 mmol/L (136-145)
[2022-08-22 11:37] LABS: ANION GAP 11 MMOL/L (8-16); BLOOD UREA NITROGEN 19.8 mg/dL (7-18); CO2 26 mmol/L (21-32); GLUCOSE,RANDOM 99 mg/dL (74-106); MAGNESIUM 2.4 mg/dL (1.8-2.4)
[2022-08-22 11:38] LABS: ALBUMIN 3.1 g/dl (3.4-5.0)
[2022-08-22 11:40] LABS: CREATININE 0.8 mg/dL (0.55-1.3)
[2022-08-22 11:41] LABS: LDH 238 U/L (84-246); SGPT/ALT 28 U/L (13-61)
[2022-08-22 11:42] LABS: TOT PROT 6.8 g/dl (6.4-8.2)
[2022-08-22 11:43] LABS: ALK PHOS 55 U/L (45-117)
[2022-08-22 11:45] LABS: BILIRUBIN,TOTAL 0.2 mg/dL (0.2-1); SGOT/AST 43 U/L (15-37)
[2022-08-23] MEDS: REMDESIVIR 100 MG in SODIUM CHLORIDE 250 ML IVPB SCH (04:39)
[2022-08-23 08:43] LABS: BASO % 1.1 % (0-2.0); EOS % 0.1 % (0-4.5); HEMOGLOBIN 13.7 GM/dL (10.7-15.3); LYMPH % 28.9 % (8-40); MCH 26.4 pg (25.7-33.7); MCHC 31.9 g/dl (32.0-36.0); MEAN CELL VOLUME 82.8 fl (80-96); MEAN PLT VOLUME 9.6 fl (7.5-11.1); NEUT % 59.9 % (42.8-82.8); PLATELET COUNT 246 10^3/uL (134-434); RBC 5.19 M/mm3 (3.60-5.2); RDW 13.9 % (11.6-15.6)
[2022-08-23 09:04] LABS: CHLORIDE 110 mmol/L (98-107); SODIUM 146 mmol/L (136-145)
[2022-08-23 09:10] LABS: ALBUMIN 3.4 g/dl (3.4-5.0); ANION GAP 10 MMOL/L (8-16); CALCIUM 9.1 mg/dL (8.5-10.1); CO2 26 mmol/L (21-32)
[2022-08-23 09:11] LABS: BLOOD UREA NITROGEN 20.8 mg/dL (7-18); GLUCOSE,RANDOM 106 mg/dL (74-106); MAGNESIUM 2.4 mg/dL (1.8-2.4)
[2022-08-23 09:14] LABS: BILIRUBIN,TOTAL 0.2 mg/dL (0.2-1); CREATININE 0.7 mg/dL (0.55-1.3); LDH 245 U/L (84-246); SGOT/AST 44 U/L (15-37); SGPT/ALT 38 U/L (13-61); TOT PROT 7.5 g/dl (6.4-8.2)
[2022-08-23 09:15] LABS: ALK PHOS 62 U/L (45-117)
[2022-08-23] MEDS: ENOXAPARIN NA (PORCINE) 40 MG/0.4 ML DISP.SYRIN SQ SCH (10:50)
[2022-08-23] MEDS: OLANZapine 5 MG TABLET PO SCH (11:08)
[2022-08-23] MEDS: DEXAMETHASONE SOD PHOSPHATE 10 MG/1 ML VIAL IVPUSH SCH (11:11)
[2022-08-23] MEDS: levETIRAcetam 500 MG/5 ML INJECTION VIAL IVPB SCH ×2 (11:20→21:36)
[2022-08-24] MEDS: REMDESIVIR 100 MG in SODIUM CHLORIDE 250 ML IVPB SCH (04:02)
[2022-08-24 08:40] LABS: BASO % 0.9 % (0-2.0); HEMATOCRIT 42.6 % (32.4-45.2); HEMOGLOBIN 13.7 GM/dL (10.7-15.3); LYMPH % 27.2 % (8-40); MCH 26.7 pg (25.7-33.7); MCHC 32.2 g/dl (32.0-36.0); MEAN CELL VOLUME 82.9 fl (80-96); MEAN PLT VOLUME 9.4 fl (7.5-11.1); MONO % 9.8 % (3.8-10.2); NEUT % 62.1 % (42.8-82.8); PLATELET COUNT 251 10^3/uL (134-434); RBC 5.14 M/mm3 (3.60-5.2); RDW 13.8 % (11.6-15.6); WHITE BLOOD COUNT 7.2 K/mm3 (4.0-10.0)
[2022-08-24 09:03] LABS: CHLORIDE 109 mmol/L (98-107); SODIUM 143 mmol/L (136-145)
[2022-08-24 09:11] LABS: ALBUMIN 3.2 g/dl (3.4-5.0); ANION GAP 9 MMOL/L (8-16); BLOOD UREA NITROGEN 22.7 mg/dL (7-18); CO2 26 mmol/L (21-32); CREATININE 0.7 mg/dL (0.55-1.3); GLUCOSE,RANDOM 116 mg/dL (74-106); MAGNESIUM 2.5 mg/dL (1.8-2.4); SGOT/AST 25 U/L (15-37); SGPT/ALT 36 U/L (13-61)
[2022-08-24 09:13] LABS: CALCIUM 8.9 mg/dL (8.5-10.1); LDH 203 U/L (84-246)
[2022-08-24 09:14] LABS: ALK PHOS 57 U/L (45-117)
[2022-08-24 09:22] LABS: BILIRUBIN,TOTAL 0.4 mg/dL (0.2-1)
[2022-08-24] MEDS: levETIRAcetam 500 MG/5 ML INJECTION VIAL IVPB SCH ×2 (12:07→22:20)
[2022-08-24] MEDS: ENOXAPARIN NA (PORCINE) 40 MG/0.4 ML DISP.SYRIN SQ SCH (12:08)
[2022-08-24] MEDS: OLANZapine 5 MG TABLET PO SCH (12:09)
[2022-08-24] MEDS: DEXAMETHASONE SOD PHOSPHATE 10 MG/1 ML VIAL IVPUSH SCH (12:11)
[2022-08-25] MEDS: ENOXAPARIN NA (PORCINE) 40 MG/0.4 ML DISP.SYRIN SQ SCH (11:38)
[2022-08-25] MEDS: DEXAMETHASONE SOD PHOSPHATE 10 MG/1 ML VIAL IVPUSH SCH (11:42)
[2022-08-25] MEDS: levETIRAcetam 500 MG/5 ML INJECTION VIAL IVPB SCH ×2 (11:42→22:55)
[2022-08-25] MEDS: OLANZapine 5 MG TABLET PO SCH (13:23)
[2022-08-25 14:17] VITALS: RESP 20
[2022-08-26] MEDS ORDERED: BISACODYL 10 MG SUPP.RECT PR ONE (09:15)
[2022-08-26] MEDS ORDERED: levETIRAcetam 500 MG TABLET (FP) PO SCH (10:00)
[2022-08-26] MEDS ORDERED: DEXAMETHASONE 4 MG TABLET (FP) PO SCH (10:00)
[2022-08-26] MEDS: OLANZapine 5 MG TABLET PO SCH (10:24)
[2022-08-26] MEDS: ENOXAPARIN NA (PORCINE) 40 MG/0.4 ML DISP.SYRIN SQ SCH (10:25)
[2022-08-26 13:52] VITALS: BP 135/60; PULSE 66; TEMP 98.2
== END 2022-08-26 14:53 | disposition home or self-care (01) | DRG 871 ==
LOC: JER 21:16 → JERBED 22:29 → J8W 08-20 15:46
PROVIDERS: ADMIT Internal Medicine; ATTEND Nurse Practitioner Family
PROC: XW033E5 Introduction of Remdesivir Anti-infective into Peripheral Vein, Percutaneous Approach, New Technology Group 5 (ICD-10-PCS; principal; 2022-08-20)
PROC: 3E0333Z Introduction of Anti-inflammatory into Peripheral Vein, Percutaneous Approach (ICD-10-PCS; 2022-08-20)
DX: A41.89 Other specified sepsis (principal); J12.82 Pneumonia due to coronavirus disease 2019; U07.1 COVID-19; M62.82 Rhabdomyolysis; N17.9 Acute kidney failure, unspecified; G40.909 Epilepsy, unspecified, not intractable, without status epilepticus; G30.9 Alzheimer's disease, unspecified; F02.C0 Dementia in other diseases classified elsewhere, severe, without behavioral disturbance, psychotic disturbance, mood disturbance, and anxiety; R00.0 Tachycardia, unspecified; D72.829 Elevated white blood cell count, unspecified; Z74.01 Bed confinement status
CPT/HCPCS: 0241U-QW; 36415; 71045-TC-FY; 80053; 81003; 82550; 82553; 82728; 82803; 83605; 83615; 83735; 84100; 84132; 85025; 85379; 85610; 85730; 86140; 87040; 87086; 93005; 93010; 94761; 97161-GP; 99285-25; C9399; J1100